=== PATIENT | male | born 1950 | race Caucasian/White ===

== ENCOUNTER 2023-09-03 16:39 | Emergency (ER) | payer MEDICARE, BC, SELFPAY ==
[2023-09-03] VITALS (28 sets, daily range): BP systolic 133–180; BP diastolic 92–154; PULSE 57–90; RESP 20; TEMP 36.1; O2SAT 92–97; BMI 35.0
--- NOTE | 2023-09-03 17:34 | ED_ITS ---
HPI - General Adult General Chief complaint: Weakness Stated complaint: weak Time Seen by Provider: 09/03/23 17:03 History of Present Illness HPI narrative: [facility] did not want to go to [facility] today so brought here. was found unresponsive on bathroom floor , blood sugar was 400's. c/o cp, ems gave 3 sprays of ntg and 324 mg asa. pt says sick x 1 week. poor historian. says he just got off hospice . took a zofran at home. per ems pt shalom nd out of consciousness. pt awake and sitting on edge of bed in triage. was in [place] last week for possibly the same thing 73-year-old man presenting to the emergency department after apparent loss of consciousness and unresponsiveness. I interview him prior to looking for further information. He says he has to stop doing this. He does admit to some nausea as I noticed the emesis bag on him. He says that he has been vomiting but not able to specify further including duration. He says frequently ?I can't remember?. [facility]. Seen recently and assessed with skin cancer he said. I note the bandage on his right neck. He says conspiratorially that he has a nodule in his lung. In the same tone he does admit having a seizure history when I ask specifically. He does not recall the last time he had a seizure but that it has been a long-time. He would really like to get his license back. He notes [facility] live in assisted living where he was found in the bathroom after an on known. I am. He does note that his blood sugars have been rather high lately and he has been urinating a lot and his ?diastolic? blood pressures been rather high while he notes that his ?systolic? has been quite good. Is not complaining of any pain. Does admit to in arrhythmia in the form of atrial fibrillation and and says that he is no longer anticoagulated. He says that somebody took him off of that. History of Coumadin. Sounds like he may have also had personal fears about bleeding risk on NOAC. Says also that he was recently on hospice and just got off of hospice and is looking forward again is mention to getting his life back. Does acknowledge a history of heart failure. And says that he thinks that this might be partly related. He is not more short of breath at this time. No noted fevers. Has been feeling some dizziness or maybe lightheadedness and that his eyes have been intermittently blurry; seems to indicate for some time. Per reading triage notation, apparently had sprays of nitroglycerin given for chest pain as well as aspirin. Reviewing [facility] records for diagnoses and medications Rheumatoid arthritis Dysphagia Hypothyroid Type 2 diabetes Bipolar Depression Anxiety Sleep apnea Hypertension Atherosclerotic heart disease Diastolic heart failure Emphysema COPD GERD Generalized weakness Chronic kidney disease BPH the last he does mention number of occasions Medications include Acetaminophen albuterol nebs and HFA Divalproex sodium Fluticasone Ketoconazole cream and shampoo Lantus Losartan Nitroglycerin Ondansetron Pantoprazole Pepcid Senna Spironolactone Sucralfate Tamsulosin Triple antibiotic ointment to the right neck Related Data Home Medications Medication Instructions Recorded Confirmed albuterol sulfate 2.5 mg/3 mL mg 09/03/23 (0.083 %) solution for nebulization divalproex 125 mg capsule,delayed 250 mg PO BID 09/03/23 09/03/23 release sprinkle fluticasone furoate 100 1 ea inhalation DAILY 09/03/23 09/03/23 mcg-vilanterol 25 mcg/dose inhalation powder (Breo Ellipta) insulin glargine 100 unit/mL (3 unit subcut 09/03/23 mL) subcutaneous pen (Lantus Solostar U-100 Insulin) losartan 25 mg tablet 25 mg PO DAILY 09/03/23 09/03/23 nitroglycerin 0.4 mg sublingual sublingual 09/03/23 tablet ondansetron HCl 4 mg tablet 4 mg PO Q8H PRN 09/03/23 09/03/23 pantoprazole 40 mg tablet,delayed 40 mg PO DAILY 09/03/23 09/03/23 release sennosides 8.6 mg-docusate sodium tab PO 09/03/23 50 mg tablet (Stimulant Laxative Plus) spironolactone 50 mg tablet 50 mg PO DAILY 09/03/23 09/03/23 sucralfate 1 gram tablet 1 g PO QID 09/03/23 09/03/23 tamsulosin 0.4 mg capsule 0.4 mg PO DAILY 09/03/23 09/03/23 Allergies Allergy/AdvReac Type Severity Reaction Status Date / Time gabapentin Allergy Unknown Verified 09/03/23 16:54 Sulfa (Sulfonamide Allergy Unknown Verified 09/03/23 16:54 Antibiotics) Review of Systems Status of ROS: Reports: 6 or more systems reviewed and unremarkable except as noted in History and below Exam Narrative: Exam Narrative: Is pleasant. NAD. This skin is warm and dry. He has some hemosiderin deposition in the lower extremities. There is 1+ vaguely pitting but more just soft lower extremity edema from upper calves distally bilaterally. There is some older scratches at the right outer lower leg that do not appear to be new. Well-perfused in his extremities. Lungs are clear. No indication of trauma over his back. Neck is a little tender which seems to be chronic per his report. Does have midline surgical scar. Head is atraumatic. Cranial nerves 2-12 are intact. Heart is in what appears to be a regular rate and rhythm though with some ectopic beats. No pain to palpation over the chest or clavicles. Oropharynx is without recent injury. Sticky. Abdomen is overweight soft. Is little tender in the epigastrium. He says that when he has pain it is in the ?right upper quadrant?. This small bruise on the right abdomen less than a dime-sized consistent with insulin injection. Right neck with a large Band- Aid in place and an erosion without surrounding inflammatory changes. This is erosion is about a cm half in diameter. Const: Vital Signs, click to edit/add: Vital Signs - 24 hr 09/03/23 16:45 09/03/23 17:12 09/03/23 17:14 Temperature 97 F L Pulse Rate 70 Pulse Rate [Pulse Oximeter] 76 Pulse Rate [orthos tatic lying Left P ulse Oximeter] Pulse Rate [orthos tatic sitting Left Pulse Oximeter] Pulse Rate [orthos tatic standing Lef t Pulse Oximeter] Respiratory Rate 20 Blood Pressure Blood Pressure [Le ft Upper Arm] 147/108 H Blood Pressure [or thostatic lying Le ft Arm] Blood Pressure [or thostatic sitting Left Arm] Blood Pressure [or thostatic standing Left Arm] Pulse Oximetry 97 95 95 Oxygen Delivery Me thod Room Air Room Air 09/03/23 17:15 09/03/23 17:30 09/03/23 17:32 Temperature Pulse Rate 74 72 68 Pulse Rate [Pulse Oximeter] Pulse Rate [orthos tatic lying Left P ulse Oximeter] Pulse Rate [orthos tatic sitting Left Pulse Oximeter] Pulse Rate [orthos tatic standing Lef t Pulse Oximeter] Respiratory Rate Blood Pressure 178/105 H Blood Pressure [Le ft Upper Arm] Blood Pressure [or thostatic lying Le ft Arm] Blood Pressure [or thostatic sitting Left Arm] Blood Pressure [or thostatic standing Left Arm] Pulse Oximetry 97 92 95 Oxygen Delivery Me thod 09/03/23 17:33 09/03/23 17:40 09/03/23 17:45 Temperature Pulse Rate 66 72 Pulse Rate [Pulse Oximeter] Pulse Rate [orthos tatic lying Left P ulse Oximeter] 66 Pulse Rate [orthos tatic sitting Left Pulse Oximeter] 74 Pulse Rate [orthos tatic standing Lef t Pulse Oximeter] 90 Respiratory Rate Blood Pressure Blood Pressure [Le ft Upper Arm] Blood Pressure [or thostatic lying Le ft Arm] 160/95 H Blood Pressure [or thostatic sitting Left Arm] 176/109 H Blood Pressure [or thostatic standing Left Arm] 180/123 H Pulse Oximetry 96 96 Oxygen Delivery Me thod 09/03/23 18:01 09/03/23 18:42 09/03/23 18:43 Temperature Pulse Rate 71 68 66 Pulse Rate [Pulse Oximeter] Pulse Rate [orthos tatic lying Left P ulse Oximeter] Pulse Rate [orthos tatic sitting Left Pulse Oximeter] Pulse Rate [orthos tatic standing Lef t Pulse Oximeter] Respiratory Rate Blood Pressure 150/92 H Blood Pressure [Le ft Upper Arm] Blood Pressure [or thostatic lying Le ft Arm] Blood Pressure [or thostatic sitting Left Arm] Blood Pressure [or thostatic standing Left Arm] Pulse Oximetry 97 97 96 Oxygen Delivery Me thod 09/03/23 18:45 09/03/23 19:00 09/03/23 19:02 Temperature Pulse Rate 67 67 Pulse Rate [Pulse Oximeter] Pulse Rate [orthos tatic lying Left P ulse Oximeter] Pulse Rate [orthos tatic sitting Left Pulse Oximeter] Pulse Rate [orthos tatic standing Lef t Pulse Oximeter] Respiratory Rate Blood Pressure 170/154 H Blood Pressure [Le ft Upper Arm] Blood Pressure [or thostatic lying Le ft Arm] Blood Pressure [or thostatic sitting Left Arm] Blood Pressure [or thostatic standing Left Arm] Pulse Oximetry 95 93 Oxygen Delivery Me thod 09/03/23 19:15 09/03/23 19:30 09/03/23 19:35 Temperature Pulse Rate 57 L 66 60 Pulse Rate [Pulse Oximeter] Pulse Rate [orthos tatic lying Left P ulse Oximeter] Pulse Rate [orthos tatic sitting Left Pulse Oximeter] Pulse Rate [orthos tatic standing Lef t Pulse Oximeter] Respiratory Rate Blood Pressure Blood Pressure [Le ft Upper Arm] Blood Pressure [or thostatic lying Le ft Arm] Blood Pressure [or thostatic sitting Left Arm] Blood Pressure [or thostatic standing Left Arm] Pulse Oximetry 93 95 94 Oxygen Delivery Me thod 09/03/23 19:45 09/03/23 19:58 09/03/23 20:01 Temperature Pulse Rate 65 76 Pulse Rate [Pulse Oximeter] Pulse Rate [orthos tatic lying Left P ulse Oximeter] Pulse Rate [orthos tatic sitting Left Pulse Oximeter] Pulse Rate [orthos tatic standing Lef t Pulse Oximeter] Respiratory Rate Blood Pressure 160/95 H 176/109 H Blood Pressure [Le ft Upper Arm] Blood Pressure [or thostatic lying Le ft Arm] Blood Pressure [or thostatic sitting Left Arm] Blood Pressure [or thostatic standing Left Arm] Pulse Oximetry 96 97 Oxygen Delivery Me thod 09/03/23 20:03 09/03/23 20:04 09/03/23 22:00 Temperature Pulse Rate 88 Pulse Rate [Pulse Oximeter] Pulse Rate [orthos tatic lying Left P ulse Oximeter] Pulse Rate [orthos tatic sitting Left Pulse Oximeter] Pulse Rate [orthos tatic standing Lef t Pulse Oximeter] Respiratory Rate Blood Pressure 180/123 H Blood Pressure [Le ft Upper Arm] Blood Pressure [or thostatic lying Le ft Arm] Blood Pressure [or thostatic sitting Left Arm] Blood Pressure [or thostatic standing Left Arm] Pulse Oximetry 96 97 Oxygen Delivery Me thod 09/03/23 22:15 09/03/23 22:16 09/03/23 22:17 Temperature Pulse Rate 65 69 63 Pulse Rate [Pulse Oximeter] Pulse Rate [orthos tatic lying Left P ulse Oximeter] Pulse Rate [orthos tatic sitting Left Pulse Oximeter] Pulse Rate [orthos tatic standing Lef t Pulse Oximeter] Respiratory Rate Blood Pressure 133/96 H Blood Pressure [Le ft Upper Arm] Blood Pressure [or thostatic lying Le ft Arm] Blood Pressure [or thostatic sitting Left Arm] Blood Pressure [or thostatic standing Left Arm] Pulse Oximetry 97 95 96 Oxygen Delivery Me thod 09/03/23 22:30 Temperature Pulse Rate 62 Pulse Rate [Pulse Oximeter] Pulse Rate [orthos tatic lying Left P ulse Oximeter] Pulse Rate [orthos tatic sitting Left Pulse Oximeter] Pulse Rate [orthos tatic standing Lef t Pulse Oximeter] Respiratory Rate Blood Pressure Blood Pressure [Le ft Upper Arm] Blood Pressure [or thostatic lying Le ft Arm] Blood Pressure [or thostatic sitting Left Arm] Blood Pressure [or thostatic standing Left Arm] Pulse Oximetry 96 Oxygen Delivery Me thod Documenting provider has reviewed patient's vital signs: yes Course Vital Signs Vital signs: Initial Vital Signs Temperature 97 F L 09/03/23 16:45 Temperature Source Temporal Artery Scan 09/03/23 16:45 Pulse Rate 76 09/03/23 16:45 Respiratory Rate 09/03/23 16:45 Blood Pressure 147/108 H 09/03/23 16:45 Blood Pressure Mean 121 H 09/03/23 16:45 Blood Pressure Position Supine 09/03/23 16:45 Pulse Oximetry 97 09/03/23 16:45 Oxygen Delivery Method Room Air 09/03/23 16:45 Vital Signs Temperature 97 F L 09/03/23 16:45 Pulse Rate 76 09/03/23 16:45 Respiratory Rate 09/03/23 16:45 Blood Pressure 147/108 H 09/03/23 16:45 Pulse Oximetry 97 09/03/23 16:45 Oxygen Delivery Method Room Air 09/03/23 16:45 Temperature 97 F L 09/03/23 16:45 Pulse Rate 62 09/03/23 22:30 Respiratory Rate 09/03/23 16:45 Blood Pressure 133/96 H 09/03/23 22:16 Pulse Oximetry 96 09/03/23 22:30 Oxygen Delivery Method Room Air 09/03/23 17:14 Medical Decision Making MDM Narrative Medical decision making narrative: EMS had reported some waxing and waning consciousness. Able to find records from ER visit from 12 14 23. They note a hospitalization in the month prior for chest pain which CT CTA showing absence of coronary artery disease and CT angio for PE which was unremarkable. EKG during the ER visit was not ischemic and troponin was negative. Thought to have noncardiac chest pain. Further the CT coronary angiogram done on June 2023 showed normal epicardial coronary arteries calcium score of 0 and a normal left-sided thoracic aorta It would seem that less risk of ischemic cardiovascular event today. Possibly orthostatic, possibly CVA, possibly seizure. Might have been a cardiac arrhythmia. Does have underlying history of atrial fibrillation does not appear to be in atrial fibrillation here today. Orthostatics while mildly symptomatic were not overtly positive. Chronic changes evident in head CT reviewed by me. Has large ventricles noted in particular. Radiology over-read below INDICATION: Altered mental status. TECHNIQUE: Multiplanar CT examination of the head was performed without the use of intravenous contrast. COMPARISON: CT head 07/03/2019. FINDINGS: No loss of hoang-white differentiation suggestive of recent territorial infarct. No intracranial hemorrhage, abnormal extra-axial fluid collection or midline shift. Stable mildly enlarged ventricular system caliber, with bifrontal diameter measuring 54 mm, previously 56 mm. The enlarged ventricular caliber seems slightly out of proportion to the cerebral sulci near the vertex, though this finding is stable since 2019. Incidentally noted partially empty sella turcica. Moderate generalized parenchymal volume loss. Moderate patchy periventricular hypoattenuation, nonspecific but suggestive of chronic microvascular ischemic changes. The basal cisterns are patent. The visualized paranasal sinuses and mastoid air cells are clear. The visualized orbits and calvarium are unremarkable. The cerebellar tonsils are in normal position. IMPRESSION: 1. Mild ventriculomegaly seems out of proportion to the cerebral sulci near the vertex, will which can be seen in the setting of normal pressure hydrocephalus in the appropriate clinical setting. However, this finding is stable since at least 2019. 2. No intracranial hemorrhage, recent territorial infarct or midline shift. 3. Moderate generalized parenchymal volume loss with chronic microvascular ischemic changes. Mild ventriculomegaly he appears to be to be unchanged though since 2019. I suppose could be contributing to hypertension. Did also decide to proceed with MRI of the brain in case we might be missing some sort of ischemic event that needs further evaluation; there is the possibility that paroxysmal atrial fibrillation is occurring. CLINICAL HISTORY: Repeated loss of consciousness. TECHNIQUE: Multi-sequence, multiplanar MRI examination of the brain was performed. COMPARISON: None available. FINDINGS: There is no restricted diffusion in the brain to indicate the presence of acute ischemia. No intracranial hemorrhage, extra-axial collection, mass effect, or midline shift. Chronic lacunar infarcts in both cerebellar hemispheres. At least moderate dilatation of the supratentorial ventricular system, which appears disproportionate to the degree of [id number] generalized parenchymal volume loss. Minimal patchy and scattered T2/FLAIR hyperintense foci in the white matter of both hemispheres likely reflects sequela of minimal chronic small vessel ischemia. The orbits are unremarkable. The paranasal sinuses are unremarkable. The mastoid air cells are clear. The calvarium is unremarkable. IMPRESSION: 1. No acute intracranial abnormality. 2. At least moderate dilatation of the supratentorial ventricular system which appears disproportionate to the degree of parenchymal volume loss. This is nonspecific but can be seen in the setting of normal pressure hydrocephalus. 3. Chronic lacunar infarcts in both cerebellar hemispheres. 4. Senescent changes including generalized parenchymal volume loss and findings most consistent with sequela of chronic small vessel ischemia. Findings appear to be consistent with CT imaging and no evidence of acute ischemic disease. Was monitored for extensive period of time in the emergency department and managed to sleep. Did remain in normal sinus rhythm during this time. Diastolic blood pressure particular remained elevated. Will need follow-up for this. Might also need a longer period of heart rhythm monitoring. I did discuss admission for further monitoring with Mr. Guaman. His preference is clearly to return home. I did call to daughter looking for more information but was unable to reach. Lab Data Lab results reviewed: Yes I reviewed the patient's lab results Labs: Lab Results 09/03/23 09/03/23 09/03/23 Range/Units 17:06 17:41 18:00 WBC (4.50-11.00) K/uL RBC (4.30-5.90) m/uL Hgb (13.5-17.5) gm/dL Hct (37.0-53.0) % MCV (80-100) fL MCH (26-34) pg MCHC (32-36) gm/dL RDW Coeff of Ella (11.5-15.5) % Plt Count (140-440) K/uL Neut % (Auto) (42.0-72.0) % Lymph % (Auto) (20-44) % [place] % (Auto) (0.0-11.0) % Eos % (Auto) (0.0-7.0) % Baso % (Auto) (0.0-3.0) % Neut # (Auto) (1.7-7.0) K/uL Lymph # (Auto) (0.90-2.90) K/uL [place] # (Auto) (0.00-0.90) K/UL Eos # (Auto) (0.00-0.50) K/uL Baso # (Auto) (0.00-0.30) K/uL Abs Immat Gran (auto) (0.00-0.30) K/uL Imm/Tot Granulo (auto) % D-Dimer Quant (PE/DVT) (0.00-0.50) ug/ml Sodium Potassium Chloride Carbon Dioxide Anion Gap BUN Creatinine Estimated Creat Clear Estimated GFR Glucose Lactate (0.5-1.9) mmol/L Calcium Magnesium (1.5-2.6) mg/dL Total Bilirubin (0.1-1.5) mg/dL Direct Bilirubin (0.0-0.5) mg/dL AST (12-35) U/L ALT (4-50) U/L Alkaline Phosphatase (40-150) U/L Troponin I (0.01-0.04) ng/mL C-Reactive Protein NT-Pro-B Natriuret Pep pg/mL Total Protein (6.0-8.3) g/dL Albumin (3.3-5.0) g/dL Lipase (23-300) U/L TSH (0.270-4.20) uIU/mL Urine Color Yellow (Yellow) Urine Appearance Clear (Clear) Urine pH 7.5 (5.0-8.5) Ur Specific [place] 1.020 (1.000-1.030) Urine Protein Negative (Negative) Urine Glucose (UA) 2+ A (Negative) Urine Ketones Negative (Negative) Urine Blood Trace-intact A (Negative) Urine Nitrite Negative (Negative) Urine Bilirubin Negative (Negative) Urine Urobilinogen 0.2 (0.2-1.0) Ur Leukocyte Esterase Negative (Negative) Urine RBC 0-2 (0-2) Urine WBC 0-2 (0-5) Urine WBC Clumps None (None) Ur Squamous Epith Cells None (None-Few) Amorphous Sediment Few A (None) Urine Bacteria None (None) Urine Opiates Screen Negative (Negative) Ur Oxycodone Screen Negative (Negative) Urine Methadone Screen Negative (Negative) Ur Barbiturates Screen Negative (Negative) U Tricyclic Antidepress Negative (Negative) Ur Phencyclidine Scrn Negative (Negative) Ur Amphetamines Screen Negative (Negative) U Methamphetamines Scrn Negative (Negative) U Benzodiazepines Scrn Negative (Negative) Urine Cocaine Screen Negative (Negative) U Marijuana (THC) Screen POSITIVE A (Negative) Ur Drug Screen Comment See Note Ethyl Alcohol SARS-CoV-2 (PCR) Negative SARS-CoV-2 (Negative) Influenza Type A (PCR) Negative PCR FLU A (Negative) Influenza Type B (PCR) Negative PCR FLU B (Negative) RSV (PCR) Negative PCR RSV (Negative) Lab Acknowledgement POC Troponin I 0.01 (0.01-0.04) ng/ml 09/03/23 09/03/23 09/03/23 Range/Units 18:40 18:40 18:40 WBC 7.55 (4.50-11.00) K/uL RBC 4.73 (4.30-5.90) m/uL Hgb 13.9 (13.5-17.5) gm/dL Hct 39.8 (37.0-53.0) % MCV 84 (80-100) fL MCH 29 (26-34) pg MCHC 35 (32-36) gm/dL RDW Coeff of Ella 12.3 (11.5-15.5) % Plt Count 63 L (140-440) K/uL Neut % (Auto) 48.1 (42.0-72.0) % Lymph % (Auto) 36.6 (20-44) % [place] % (Auto) 9.9 (0.0-11.0) % Eos % (Auto) 4.8 (0.0-7.0) % Baso % (Auto) 0.3 (0.0-3.0) % Neut # (Auto) 3.64 (1.7-7.0) K/uL Lymph # (Auto) 2.76 (0.90-2.90) K/uL [place] # (Auto) 0.70 (0.00-0.90) K/UL Eos # (Auto) 0.36 (0.00-0.50) K/uL Baso # (Auto) 0.02 (0.00-0.30) K/uL Abs Immat Gran (auto) 0.02 (0.00-0.30) K/uL Imm/Tot Granulo (auto) 0.3 % D-Dimer Quant (PE/DVT) 0.35 (0.00-0.50) ug/ml Sodium Cancelled 135 Potassium Cancelled 4.0 Chloride Cancelled Carbon Dioxide Anion Gap BUN Creatinine Estimated Creat Clear Estimated GFR Glucose Lactate (0.5-1.9) mmol/L Calcium Magnesium (1.5-2.6) mg/dL Total Bilirubin (0.1-1.5) mg/dL Direct Bilirubin (0.0-0.5) mg/dL AST (12-35) U/L ALT (4-50) U/L Alkaline Phosphatase (40-150) U/L Troponin I (0.01-0.04) ng/mL C-Reactive Protein NT-Pro-B Natriuret Pep pg/mL Total Protein (6.0-8.3) g/dL Albumin (3.3-5.0) g/dL Lipase (23-300) U/L TSH (0.270-4.20) uIU/mL Urine Color (Yellow) Urine Appearance (Clear) Urine pH (5.0-8.5) Ur Specific [place] (1.000-1.030) Urine Protein (Negative) Urine Glucose (UA) (Negative) Urine Ketones (Negative) Urine Blood (Negative) Urine Nitrite (Negative) Urine Bilirubin (Negative) Urine Urobilinogen (0.2-1.0) Ur Leukocyte Esterase (Negative) Urine RBC (0-2) Urine WBC (0-5) Urine WBC Clumps (None) Ur Squamous Epith Cells (None-Few) Amorphous Sediment (None) Urine Bacteria (None) Urine Opiates Screen (Negative) Ur Oxycodone Screen (Negative) Urine Methadone Screen (Negative) Ur Barbiturates Screen (Negative) U Tricyclic Antidepress (Negative) Ur Phencyclidine Scrn (Negative) Ur Amphetamines Screen (Negative) U Methamphetamines Scrn (Negative) U Benzodiazepines Scrn (Negative) Urine Cocaine Screen (Negative) U Marijuana (THC) Screen (Negative) Ur Drug Screen Comment Ethyl Alcohol SARS-CoV-2 (PCR) (Negative) Influenza Type A (PCR) (Negative) Influenza Type B (PCR) (Negative) RSV (PCR) (Negative) Lab Acknowledgement POC Troponin I (0.01-0.04) ng/ml 09/03/23 09/03/23 09/03/23 Range/Units 18:40 18:40 18:40 WBC (4.50-11.00) K/uL RBC (4.30-5.90) m/uL Hgb (13.5-17.5) gm/dL Hct (37.0-53.0) % MCV (80-100) fL MCH (26-34) pg MCHC (32-36) gm/dL RDW Coeff of Ella (11.5-15.5) % Plt Count (140-440) K/uL Neut % (Auto) (42.0-72.0) % Lymph % (Auto) (20-44) % [place] % (Auto) (0.0-11.0) % Eos % (Auto) (0.0-7.0) % Baso % (Auto) (0.0-3.0) % Neut # (Auto) (1.7-7.0) K/uL Lymph # (Auto) (0.90-2.90) K/uL [place] # (Auto) (0.00-0.90) K/UL Eos # (Auto) (0.00-0.50) K/uL Baso # (Auto) (0.00-0.30) K/uL Abs Immat Gran (auto) (0.00-0.30) K/uL Imm/Tot Granulo (auto) % D-Dimer Quant (PE/DVT) (0.00-0.50) ug/ml Sodium Potassium Chloride 101 Carbon Dioxide Cancelled 26 Anion Gap Cancelled 8 BUN Cancelled Creatinine Estimated Creat Clear Estimated GFR Glucose Lactate (0.5-1.9) mmol/L Calcium Magnesium (1.5-2.6) mg/dL Total Bilirubin (0.1-1.5) mg/dL Direct Bilirubin (0.0-0.5) mg/dL AST (12-35) U/L ALT (4-50) U/L Alkaline Phosphatase (40-150) U/L Troponin I (0.01-0.04) ng/mL C-Reactive Protein NT-Pro-B Natriuret Pep pg/mL Total Protein (6.0-8.3) g/dL Albumin (3.3-5.0) g/dL Lipase (23-300) U/L TSH (0.270-4.20) uIU/mL Urine Color (Yellow) Urine Appearance (Clear) Urine pH (5.0-8.5) Ur Specific [place] (1.000-1.030) Urine Protein (Negative) Urine Glucose (UA) (Negative) Urine Ketones (Negative) Urine Blood (Negative) Urine Nitrite (Negative) Urine Bilirubin (Negative) Urine Urobilinogen (0.2-1.0) Ur Leukocyte Esterase (Negative) Urine RBC (0-2) Urine WBC (0-5) Urine WBC Clumps (None) Ur Squamous Epith Cells (None-Few) Amorphous Sediment (None) Urine Bacteria (None) Urine Opiates Screen (Negative) Ur Oxycodone Screen (Negative) Urine Methadone Screen (Negative) Ur Barbiturates Screen (Negative) U Tricyclic Antidepress (Negative) Ur Phencyclidine Scrn (Negative) Ur Amphetamines Screen (Negative) U Methamphetamines Scrn (Negative) U Benzodiazepines Scrn (Negative) Urine Cocaine Screen (Negative) U Marijuana (THC) Screen (Negative) Ur Drug Screen Comment Ethyl Alcohol SARS-CoV-2 (PCR) (Negative) Influenza Type A (PCR) (Negative) Influenza Type B (PCR) (Negative) RSV (PCR) (Negative) Lab Acknowledgement POC Troponin I (0.01-0.04) ng/ml 09/03/23 09/03/23 09/03/23 Range/Units 18:40 18:40 18:40 WBC (4.50-11.00) K/uL RBC (4.30-5.90) m/uL Hgb (13.5-17.5) gm/dL Hct (37.0-53.0) % MCV (80-100) fL MCH (26-34) pg MCHC (32-36) gm/dL RDW Coeff of Ella (11.5-15.5) % Plt Count (140-440) K/uL Neut % (Auto) (42.0-72.0) % Lymph % (Auto) (20-44) % [place] % (Auto) (0.0-11.0) % Eos % (Auto) (0.0-7.0) % Baso % (Auto) (0.0-3.0) % Neut # (Auto) (1.7-7.0) K/uL Lymph # (Auto) (0.90-2.90) K/uL [place] # (Auto) (0.00-0.90) K/UL Eos # (Auto) (0.00-0.50) K/uL Baso # (Auto) (0.00-0.30) K/uL Abs Immat Gran (auto) (0.00-0.30) K/uL Imm/Tot Granulo (auto) % D-Dimer Quant (PE/DVT) (0.00-0.50) ug/ml Sodium Potassium Chloride Carbon Dioxide Anion Gap BUN 21 Creatinine Cancelled 0.7 Estimated Creat Clear Cancelled 76.57 Estimated GFR Cancelled Glucose Lactate (0.5-1.9) mmol/L Calcium Magnesium (1.5-2.6) mg/dL Total Bilirubin (0.1-1.5) mg/dL Direct Bilirubin (0.0-0.5) mg/dL AST (12-35) U/L ALT (4-50) U/L Alkaline Phosphatase (40-150) U/L Troponin I (0.01-0.04) ng/mL C-Reactive Protein NT-Pro-B Natriuret Pep pg/mL Total Protein (6.0-8.3) g/dL Albumin (3.3-5.0) g/dL Lipase (23-300) U/L TSH (0.270-4.20) uIU/mL Urine Color (Yellow) Urine Appearance (Clear) Urine pH (5.0-8.5) Ur Specific [place] (1.000-1.030) Urine Protein (Negative) Urine Glucose (UA) (Negative) Urine Ketones (Negative) Urine Blood (Negative) Urine Nitrite (Negative) Urine Bilirubin (Negative) Urine Urobilinogen (0.2-1.0) Ur Leukocyte Esterase (Negative) Urine RBC (0-2) Urine WBC (0-5) Urine WBC Clumps (None) Ur Squamous Epith Cells (None-Few) Amorphous Sediment (None) Urine Bacteria (None) Urine Opiates Screen (Negative) Ur Oxycodone Screen (Negative) Urine Methadone Screen (Negative) Ur Barbiturates Screen (Negative) U Tricyclic Antidepress (Negative) Ur Phencyclidine Scrn (Negative) Ur Amphetamines Screen (Negative) U Methamphetamines Scrn (Negative) U Benzodiazepines Scrn (Negative) Urine Cocaine Screen (Negative) U Marijuana (THC) Screen (Negative) Ur Drug Screen Comment Ethyl Alcohol SARS-CoV-2 (PCR) (Negative) Influenza Type A (PCR) (Negative) Influenza Type B (PCR) (Negative) RSV (PCR) (Negative) Lab Acknowledgement POC Troponin I (0.01-0.04) ng/ml 09/03/23 09/03/23 09/03/23 Range/Units 18:40 18:40 18:40 WBC (4.50-11.00) K/uL RBC (4.30-5.90) m/uL Hgb (13.5-17.5) gm/dL Hct (37.0-53.0) % MCV (80-100) fL MCH (26-34) pg MCHC (32-36) gm/dL RDW Coeff of Ella (11.5-15.5) % Plt Count (140-440) K/uL Neut % (Auto) (42.0-72.0) % Lymph % (Auto) (20-44) % [place] % (Auto) (0.0-11.0) % Eos % (Auto) (0.0-7.0) % Baso % (Auto) (0.0-3.0) % Neut # (Auto) (1.7-7.0) K/uL Lymph # (Auto) (0.90-2.90) K/uL [place] # (Auto) (0.00-0.90) K/UL Eos # (Auto) (0.00-0.50) K/uL Baso # (Auto) (0.00-0.30) K/uL Abs Immat Gran (auto) (0.00-0.30) K/uL Imm/Tot Granulo (auto) % D-Dimer Quant (PE/DVT) (0.00-0.50) ug/ml Sodium Potassium Chloride Carbon Dioxide Anion Gap BUN Creatinine Estimated Creat Clear Estimated GFR 99 Glucose Cancelled 350 H Lactate 1.6 (0.5-1.9) mmol/L Calcium Cancelled 8.6 Magnesium 1.8 (1.5-2.6) mg/dL Total Bilirubin 0.3 (0.1-1.5) mg/dL Direct Bilirubin 0.0 (0.0-0.5) mg/dL AST 16 (12-35) U/L ALT 14 (4-50) U/L Alkaline Phosphatase 98 (40-150) U/L Troponin I < 0.01 L (0.01-0.04) ng/mL C-Reactive Protein Cancelled NT-Pro-B Natriuret Pep pg/mL Total Protein (6.0-8.3) g/dL Albumin (3.3-5.0) g/dL Lipase (23-300) U/L TSH (0.270-4.20) uIU/mL Urine Color (Yellow) Urine Appearance (Clear) Urine pH (5.0-8.5) Ur Specific [place] (1.000-1.030) Urine Protein (Negative) Urine Glucose (UA) (Negative) Urine Ketones (Negative) Urine Blood (Negative) Urine Nitrite (Negative) Urine Bilirubin (Negative) Urine Urobilinogen (0.2-1.0) Ur Leukocyte Esterase (Negative) Urine RBC (0-2) Urine WBC (0-5) Urine WBC Clumps (None) Ur Squamous Epith Cells (None-Few) Amorphous Sediment (None) Urine Bacteria (None) Urine Opiates Screen (Negative) Ur Oxycodone Screen (Negative) Urine Methadone Screen (Negative) Ur Barbiturates Screen (Negative) U Tricyclic Antidepress (Negative) Ur Phencyclidine Scrn (Negative) Ur Amphetamines Screen (Negative) U Methamphetamines Scrn (Negative) U Benzodiazepines Scrn (Negative) Urine Cocaine Screen (Negative) U Marijuana (THC) Screen (Negative) Ur Drug Screen Comment Ethyl Alcohol SARS-CoV-2 (PCR) (Negative) Influenza Type A (PCR) (Negative) Influenza Type B (PCR) (Negative) RSV (PCR) (Negative) Lab Acknowledgement POC Troponin I (0.01-0.04) ng/ml 09/03/23 09/03/23 09/03/23 Range/Units 18:40 18:40 18:48 WBC (4.50-11.00) K/uL RBC (4.30-5.90) m/uL Hgb (13.5-17.5) gm/dL Hct (37.0-53.0) % MCV (80-100) fL MCH (26-34) pg MCHC (32-36) gm/dL RDW Coeff of Ella (11.5-15.5) % Plt Count (140-440) K/uL Neut % (Auto) (42.0-72.0) % Lymph % (Auto) (20-44) % [place] % (Auto) (0.0-11.0) % Eos % (Auto) (0.0-7.0) % Baso % (Auto) (0.0-3.0) % Neut # (Auto) (1.7-7.0) K/uL Lymph # (Auto) (0.90-2.90) K/uL [place] # (Auto) (0.00-0.90) K/UL Eos # (Auto) (0.00-0.50) K/uL Baso # (Auto) (0.00-0.30) K/uL Abs Immat Gran (auto) (0.00-0.30) K/uL Imm/Tot Granulo (auto) % D-Dimer Quant (PE/DVT) (0.00-0.50) ug/ml Sodium Potassium Chloride Carbon Dioxide Anion Gap BUN Creatinine Estimated Creat Clear Estimated GFR Glucose Lactate (0.5-1.9) mmol/L Calcium Magnesium (1.5-2.6) mg/dL Total Bilirubin (0.1-1.5) mg/dL Direct Bilirubin (0.0-0.5) mg/dL AST (12-35) U/L ALT (4-50) U/L Alkaline Phosphatase (40-150) U/L Troponin I (0.01-0.04) ng/mL C-Reactive Protein 0.9 NT-Pro-B Natriuret Pep 315 pg/mL Total Protein 6.7 (6.0-8.3) g/dL Albumin 4.0 (3.3-5.0) g/dL Lipase 73 (23-300) U/L TSH 2.220 (0.270-4.20) uIU/mL Urine Color (Yellow) Urine Appearance (Clear) Urine pH (5.0-8.5) Ur Specific [place] (1.000-1.030) Urine Protein (Negative) Urine Glucose (UA) (Negative) Urine Ketones (Negative) Urine Blood (Negative) Urine Nitrite (Negative) Urine Bilirubin (Negative) Urine Urobilinogen (0.2-1.0) Ur Leukocyte Esterase (Negative) Urine RBC (0-2) Urine WBC (0-5) Urine WBC Clumps (None) Ur Squamous Epith Cells (None-Few) Amorphous Sediment (None) Urine Bacteria (None) Urine Opiates Screen (Negative) Ur Oxycodone Screen (Negative) Urine Methadone Screen (Negative) Ur Barbiturates Screen (Negative) U Tricyclic Antidepress (Negative) Ur Phencyclidine Scrn (Negative) Ur Amphetamines Screen (Negative) U Methamphetamines Scrn (Negative) U Benzodiazepines Scrn (Negative) Urine Cocaine Screen (Negative) U Marijuana (THC) Screen (Negative) Ur Drug Screen Comment Ethyl Alcohol Cancelled < 0.01 L SARS-CoV-2 (PCR) (Negative) Influenza Type A (PCR) (Negative) Influenza Type B (PCR) (Negative) RSV (PCR) (Negative) Lab Acknowledgement Test Added POC Troponin I (0.01-0.04) ng/ml ECG Data Attestation: I personally reviewed and interpreted this ECG as follows: (Sinus rhythm. PACs are noted. Rate of 76. No acute ischemic changes appreciated. ) Discharge Plan Discharge Clinical Impression: Orthostatic lightheadedness, Hyperglycemia, Syncope, Hypertension Patient Disposition: Home w/ Parent or Adult Condition: Improved Additional Instructions: Stay well-hydrated. Take care in transitions. Your last blood pressure to this point was 133/96. Pulse was 69. There were number of measurements though where your diastolic was over 100 and your systolic was around 170. I would like you to follow-up with results of your head imaging here today and for your blood pressures and blood sugars soon as possible at [facility] as you mentioned or with other primary care provider. We are also sending you with a copy of your recent ER visit to [facility]. There is important information in there as well. Activity Level: No Restrictions Discharge Diet: Regular Prescriptions: No Action albuterol sulfate 2.5 mg /3 mL (0.083 %) solution for nebulization Patient Comments: [NO ORIGINAL SIG] sucralfate 1 gram tablet 1 g PO QID ondansetron HCl 4 mg tablet 4 mg PO Q8H PRN sennosides-docusate sodium [Stimulant Laxative Plus] 8.6-50 mg tablet PO tamsulosin 0.4 mg capsule 0.4 mg PO DAILY pantoprazole 40 mg tablet,delayed release (DR/EC) 40 mg PO DAILY losartan 25 mg tablet 25 mg PO DAILY nitroglycerin 0.4 mg tablet, sublingual sublingual divalproex 125 mg capsule, delayed rel sprinkle 250 mg PO BID spironolactone 50 mg tablet 50 mg PO DAILY insulin glargine [Lantus Solostar U-100 Insulin] 100 unit/mL (3 mL) insulin pen subcut fluticasone furoate-vilanterol [Breo Ellipta] 100-25 mcg/dose blister with device 1 ea INHALATION DAILY Follow Up/Referrals: Romaine Patten MD [Primary Care Provider] - Stand Alone Forms: [facility] Info Instructions
--- NOTE | 2023-09-03 17:40 | CRLHL7_ITS ---
For Patients: As a result of the Century Cures Act, medical imaging exams and procedure reports are released immediately into your electronic medical record. You may view this report before your referring provider. If you have questions, please contact your health care provider. INDICATION: Altered mental status. TECHNIQUE: Multiplanar CT examination of the head was performed without the use of intravenous contrast. COMPARISON: CT head 07/03/2019. FINDINGS: No loss of hoang-white differentiation suggestive of recent territorial infarct. No intracranial hemorrhage, abnormal extra-axial fluid collection or midline shift. Stable mildly enlarged ventricular system caliber, with bifrontal diameter measuring 54 mm, previously 56 mm. The enlarged ventricular caliber seems slightly out of proportion to the cerebral sulci near the vertex, though this finding is stable since 2019. Incidentally noted partially empty sella turcica. Moderate generalized parenchymal volume loss. Moderate patchy periventricular hypoattenuation, nonspecific but suggestive of chronic microvascular ischemic changes. The basal cisterns are patent. The visualized paranasal sinuses and mastoid air cells are clear. The visualized orbits and calvarium are unremarkable. The cerebellar tonsils are in normal position. IMPRESSION: 1. Mild ventriculomegaly seems out of proportion to the cerebral sulci near the vertex, will which can be seen in the setting of normal pressure hydrocephalus in the appropriate clinical setting. However, this finding is stable since at least 2019. 2. No intracranial hemorrhage, recent territorial infarct or midline shift. 3. Moderate generalized parenchymal volume loss with chronic microvascular ischemic changes. Please note that all CT scans at this facility use dose modulation, iterative reconstruction, and/or weight-based dosing when appropriate to reduce radiation dose to as low as reasonably achievable. Dictated by Ramón Stephens MD @ 09/03/2023 7:24:27 PM (Electronically Signed)
[2023-09-03 18:11] LABS: Appearance Urine Clear (Clear); Bilirubin Urine Negative (Negative); Blood Urine Trace-intact (Negative); Color Urine Yellow (Yellow); Glucose Urine 2+ (Negative); Ketones Urine Negative (Negative); Leukocyte Esterase Urine Negative (Negative); Nitrite Urine Negative (Negative); Protein Urine Negative (Negative); Urobilinogen Urine 0.2 (0.2-1.0); pH Urine 7.5 (5.0-8.5)
[2023-09-03 18:13] LABS: Amphetamine Screen Urine Negative (Negative); Barbiturate Screen Urine Negative (Negative); Benzodiazepines Screen Urine Negative (Negative); Cannabinoid Screen Urine POSITIVE (Negative); Cocaine Screen Urine Negative (Negative); Methadone Screen Urine Negative (Negative); Methamphetamines Screen Urine Negative (Negative); Opiate Screen Urine Negative (Negative); Oxycodone Screen Urine Negative (Negative); Phencyclidine Screen Urine Negative (Negative); Tricyclic Antidepressant Urine Negative (Negative)
[2023-09-03 18:57] LABS: SARS PCR* Negative SARS-CoV-2 (Negative)
[2023-09-03 19:03] LABS: Lactate* 1.6 mmol/L (0.5-1.9)
[2023-09-03 19:03] LABS: Troponin, Point-of-Care* 0.01 ng/ml (0.01-0.04)
[2023-09-03 19:10] LABS: Basophils Percent Auto 0.3 % (0.0-3.0); Eosinophils Percent Auto 4.8 % (0.0-7.0); Hematocrit 39.8 % (37.0-53.0); Hemoglobin* 13.9 gm/dL (13.5-17.5); Lymphocytes Percent Auto 36.6 % (20-44); Mean Corpuscular HGB Conc 35 gm/dL (32-36); Mean Corpuscular Hemoglobin 29 pg (26-34); Mean Corpuscular Volume 84 fL (80-100); Monocytes Percent Auto 9.9 % (0.0-11.0); Neutrophils Percent Auto 48.1 % (42.0-72.0); Platelet Count* 63 K/uL (140-440); RDW Coefficient of Variation % 12.3 % (11.5-15.5); Red Blood Count 4.73 m/uL (4.30-5.90); White Blood Count* 7.55 K/uL (4.50-11.00)
[2023-09-03 19:11] LABS: Basophils Absolute Auto 0.02 K/uL (0.00-0.30); Eosinophils Absolute Auto 0.36 K/uL (0.00-0.50); Immature Granulocytes Abs Auto 0.02 K/uL (0.00-0.30); Immature Granulocytes Pct Auto 0.3 %; Lymphocytes Absolute Auto 2.76 K/uL (0.90-2.90); Neutrophils Absolute Auto 3.64 K/uL (1.7-7.0)
[2023-09-03 19:13] LABS: Slide Review Reflex No
[2023-09-03 19:15] LABS: Amorphous Sediment Urine Few; RBC Urine 0-2 (0-2); WBC Urine 0-2 (0-5)
--- NOTE | 2023-09-03 19:23 | CRLHL7_ITS ---
For Patients: As a result of the Century Cures Act, medical imaging exams and procedure reports are released immediately into your electronic medical record. You may view this report before your referring provider. If you have questions, please contact your health care provider. CLINICAL HISTORY: Repeated loss of consciousness. TECHNIQUE: Multi-sequence, multiplanar MRI examination of the brain was performed. COMPARISON: None available. FINDINGS: There is no restricted diffusion in the brain to indicate the presence of acute ischemia. No intracranial hemorrhage, extra-axial collection, mass effect, or midline shift. Chronic lacunar infarcts in both cerebellar hemispheres. At least moderate dilatation of the supratentorial ventricular system, which appears disproportionate to the degree of [id number] generalized parenchymal volume loss. Minimal patchy and scattered T2/FLAIR hyperintense foci in the white matter of both hemispheres likely reflects sequela of minimal chronic small vessel ischemia. The orbits are unremarkable. The paranasal sinuses are unremarkable. The mastoid air cells are clear. The calvarium is unremarkable. IMPRESSION: 1. No acute intracranial abnormality. 2. At least moderate dilatation of the supratentorial ventricular system which appears disproportionate to the degree of parenchymal volume loss. This is nonspecific but can be seen in the setting of normal pressure hydrocephalus. 3. Chronic lacunar infarcts in both cerebellar hemispheres. 4. Senescent changes including generalized parenchymal volume loss and findings most consistent with sequela of chronic small vessel ischemia. Dictated by Tc Hermosillo MD @ 09/03/2023 9:29:23 PM (Electronically Signed)
[2023-09-03 19:27] LABS: Chloride* 101 mmol/L (96-114); Sodium* 135 mmol/L (135-149)
[2023-09-03 19:30] LABS: Anion Gap 8 mEq/L (7-15); Aspartate Amino Transferase* 16 U/L (12-35); Bilirubin Total* 0.3 mg/dL (0.1-1.5); Carbon Dioxide* 26 mmol/L (20-32); Creatinine* 0.7 mg/dL (0.5-1.5); Est. Creatinine Clearance* 76.57; Estimated Glomerular Filt Rate 99 ml/min; Total Protein* 6.7 g/dL (6.0-8.3)
[2023-09-03 19:31] LABS: Alanine Aminotransferase* 14 U/L (4-50); Alkaline Phosphatase* 98 U/L (40-150); Blood Urea Nitrogen* 21 mg/dL (7-30); Calcium* 8.6 mg/dL (8.4-10.6); Glucose* 350 mg/dL (60-115); Lipase* 73 U/L (23-300); Magnesium* 1.8 mg/dL (1.5-2.6)
[2023-09-03 19:32] LABS: D Dimer Quantitative* 0.35 ug/ml (0.00-0.50)
[2023-09-03 19:34] LABS: C Reactive Protein* 0.9 mg/dL (0.5-1.0)
[2023-09-03 19:35] LABS: Ethanol* < 0.01 % (0.01-0.03)
[2023-09-03 19:44] LABS: NT Pro B Type NatriureticPept* 315 pg/mL; Troponin I* < 0.01 ng/mL (0.01-0.04)
[2023-09-03 20:04] LABS: PCR FLU A Negative PCR FLU A (Negative); PCR FLU B Negative PCR FLU B (Negative); PCR RSV Negative PCR RSV (Negative)
--- NOTE | 2023-09-03 23:06 | ED.NURSE ---
Attempted to call pt's daughter she did not answer phone and this nurse was unable to leave a message with updates per her earlier request.
--- NOTE | 2023-09-04 00:36 | ED.NURSE ---
phone call to terry at [facility] to update pt returning via [facility].
--- NOTE | 2023-09-04 01:05 | ED.GENADULT ---
HPI - General Adult General Chief complaint: Weakness Stated complaint: weak Time Seen by Provider: 09/03/23 17:03 Related Data Home Medications Medication Instructions Recorded Confirmed albuterol sulfate 2.5 mg/3 mL mg 09/03/23 (0.083 %) solution for nebulization divalproex 125 mg capsule,delayed 250 mg PO BID 09/03/23 09/03/23 release sprinkle fluticasone furoate 100 1 ea inhalation DAILY 09/03/23 09/03/23 mcg-vilanterol 25 mcg/dose inhalation powder (Breo Ellipta) insulin glargine 100 unit/mL (3 unit subcut 09/03/23 mL) subcutaneous pen (Lantus Solostar U-100 Insulin) losartan 25 mg tablet 25 mg PO DAILY 09/03/23 09/03/23 nitroglycerin 0.4 mg sublingual sublingual 09/03/23 tablet ondansetron HCl 4 mg tablet 4 mg PO Q8H PRN 09/03/23 09/03/23 pantoprazole 40 mg tablet,delayed 40 mg PO DAILY 09/03/23 09/03/23 release sennosides 8.6 mg-docusate sodium tab PO 09/03/23 50 mg tablet (Stimulant Laxative Plus) spironolactone 50 mg tablet 50 mg PO DAILY 09/03/23 09/03/23 sucralfate 1 gram tablet 1 g PO QID 09/03/23 09/03/23 tamsulosin 0.4 mg capsule 0.4 mg PO DAILY 09/03/23 09/03/23 Allergies Allergy/AdvReac Type Severity Reaction Status Date / Time gabapentin Allergy Unknown Verified 09/03/23 16:54 Sulfa (Sulfonamide Allergy Unknown Verified 09/03/23 16:54 Antibiotics) Exam Const: Vital Signs, click to edit/add: Vital Signs - 24 hr 09/03/23 16:45 09/03/23 17:12 09/03/23 17:14 Temperature 97 F L Pulse Rate 70 Pulse Rate [Pulse Oximeter] 76 Pulse Rate [orthos tatic lying Left P ulse Oximeter] Pulse Rate [orthos tatic sitting Left Pulse Oximeter] Pulse Rate [orthos tatic standing Lef t Pulse Oximeter] Respiratory Rate 20 Blood Pressure Blood Pressure [Le ft Upper Arm] 147/108 H Blood Pressure [or thostatic lying Le ft Arm] Blood Pressure [or thostatic sitting Left Arm] Blood Pressure [or thostatic standing Left Arm] Pulse Oximetry 97 95 95 Oxygen Delivery Me thod Room Air Room Air 09/03/23 17:15 09/03/23 17:30 09/03/23 17:32 Temperature Pulse Rate 74 72 68 Pulse Rate [Pulse Oximeter] Pulse Rate [orthos tatic lying Left P ulse Oximeter] Pulse Rate [orthos tatic sitting Left Pulse Oximeter] Pulse Rate [orthos tatic standing Lef t Pulse Oximeter] Respiratory Rate Blood Pressure 178/105 H Blood Pressure [Le ft Upper Arm] Blood Pressure [or thostatic lying Le ft Arm] Blood Pressure [or thostatic sitting Left Arm] Blood Pressure [or thostatic standing Left Arm] Pulse Oximetry 97 92 95 Oxygen Delivery Me thod 09/03/23 17:33 09/03/23 17:40 09/03/23 17:45 Temperature Pulse Rate 66 72 Pulse Rate [Pulse Oximeter] Pulse Rate [orthos tatic lying Left P ulse Oximeter] 66 Pulse Rate [orthos tatic sitting Left Pulse Oximeter] 74 Pulse Rate [orthos tatic standing Lef t Pulse Oximeter] 90 Respiratory Rate Blood Pressure Blood Pressure [Le ft Upper Arm] Blood Pressure [or thostatic lying Le ft Arm] 160/95 H Blood Pressure [or thostatic sitting Left Arm] 176/109 H Blood Pressure [or thostatic standing Left Arm] 180/123 H Pulse Oximetry 96 96 Oxygen Delivery Me thod 09/03/23 18:01 09/03/23 18:42 09/03/23 18:43 Temperature Pulse Rate 71 68 66 Pulse Rate [Pulse Oximeter] Pulse Rate [orthos tatic lying Left P ulse Oximeter] Pulse Rate [orthos tatic sitting Left Pulse Oximeter] Pulse Rate [orthos tatic standing Lef t Pulse Oximeter] Respiratory Rate Blood Pressure 150/92 H Blood Pressure [Le ft Upper Arm] Blood Pressure [or thostatic lying Le ft Arm] Blood Pressure [or thostatic sitting Left Arm] Blood Pressure [or thostatic standing Left Arm] Pulse Oximetry 97 97 96 Oxygen Delivery Me thod 09/03/23 18:45 09/03/23 19:00 09/03/23 19:02 Temperature Pulse Rate 67 67 Pulse Rate [Pulse Oximeter] Pulse Rate [orthos tatic lying Left P ulse Oximeter] Pulse Rate [orthos tatic sitting Left Pulse Oximeter] Pulse Rate [orthos tatic standing Lef t Pulse Oximeter] Respiratory Rate Blood Pressure 170/154 H Blood Pressure [Le ft Upper Arm] Blood Pressure [or thostatic lying Le ft Arm] Blood Pressure [or thostatic sitting Left Arm] Blood Pressure [or thostatic standing Left Arm] Pulse Oximetry 95 93 Oxygen Delivery Me thod 09/03/23 19:15 09/03/23 19:30 09/03/23 19:35 Temperature Pulse Rate 57 L 66 60 Pulse Rate [Pulse Oximeter] Pulse Rate [orthos tatic lying Left P ulse Oximeter] Pulse Rate [orthos tatic sitting Left Pulse Oximeter] Pulse Rate [orthos tatic standing Lef t Pulse Oximeter] Respiratory Rate Blood Pressure Blood Pressure [Le ft Upper Arm] Blood Pressure [or thostatic lying Le ft Arm] Blood Pressure [or thostatic sitting Left Arm] Blood Pressure [or thostatic standing Left Arm] Pulse Oximetry 93 95 94 Oxygen Delivery Me thod 09/03/23 19:45 09/03/23 19:58 09/03/23 20:01 Temperature Pulse Rate 65 76 Pulse Rate [Pulse Oximeter] Pulse Rate [orthos tatic lying Left P ulse Oximeter] Pulse Rate [orthos tatic sitting Left Pulse Oximeter] Pulse Rate [orthos tatic standing Lef t Pulse Oximeter] Respiratory Rate Blood Pressure 160/95 H 176/109 H Blood Pressure [Le ft Upper Arm] Blood Pressure [or thostatic lying Le ft Arm] Blood Pressure [or thostatic sitting Left Arm] Blood Pressure [or thostatic standing Left Arm] Pulse Oximetry 96 97 Oxygen Delivery Me thod 09/03/23 20:03 09/03/23 20:04 09/03/23 22:00 Temperature Pulse Rate 88 Pulse Rate [Pulse Oximeter] Pulse Rate [orthos tatic lying Left P ulse Oximeter] Pulse Rate [orthos tatic sitting Left Pulse Oximeter] Pulse Rate [orthos tatic standing Lef t Pulse Oximeter] Respiratory Rate Blood Pressure 180/123 H Blood Pressure [Le ft Upper Arm] Blood Pressure [or thostatic lying Le ft Arm] Blood Pressure [or thostatic sitting Left Arm] Blood Pressure [or thostatic standing Left Arm] Pulse Oximetry 96 97 Oxygen Delivery Me thod 09/03/23 22:15 09/03/23 22:16 09/03/23 22:17 Temperature Pulse Rate 65 69 63 Pulse Rate [Pulse Oximeter] Pulse Rate [orthos tatic lying Left P ulse Oximeter] Pulse Rate [orthos tatic sitting Left Pulse Oximeter] Pulse Rate [orthos tatic standing Lef t Pulse Oximeter] Respiratory Rate Blood Pressure 133/96 H Blood Pressure [Le ft Upper Arm] Blood Pressure [or thostatic lying Le ft Arm] Blood Pressure [or thostatic sitting Left Arm] Blood Pressure [or thostatic standing Left Arm] Pulse Oximetry 97 95 96 Oxygen Delivery Me thod 09/03/23 22:30 Temperature Pulse Rate 62 Pulse Rate [Pulse Oximeter] Pulse Rate [orthos tatic lying Left P ulse Oximeter] Pulse Rate [orthos tatic sitting Left Pulse Oximeter] Pulse Rate [orthos tatic standing Lef t Pulse Oximeter] Respiratory Rate Blood Pressure Blood Pressure [Le ft Upper Arm] Blood Pressure [or thostatic lying Le ft Arm] Blood Pressure [or thostatic sitting Left Arm] Blood Pressure [or thostatic standing Left Arm] Pulse Oximetry 96 Oxygen Delivery Me thod Course Vital Signs Vital signs: Initial Vital Signs Temperature 97 F L 09/03/23 16:45 Temperature Source Temporal Artery Scan 09/03/23 16:45 Pulse Rate 76 09/03/23 16:45 Respiratory Rate 09/03/23 16:45 Blood Pressure 147/108 H 09/03/23 16:45 Blood Pressure Mean 121 H 09/03/23 16:45 Blood Pressure Position Supine 09/03/23 16:45 Pulse Oximetry 97 09/03/23 16:45 Oxygen Delivery Method Room Air 09/03/23 16:45 Vital Signs Temperature 97 F L 09/03/23 16:45 Pulse Rate 76 09/03/23 16:45 Respiratory Rate 20 09/03/23 16:45 Blood Pressure 147/108 H 09/03/23 16:45 Pulse Oximetry 97 09/03/23 16:45 Oxygen Delivery Method Room Air 09/03/23 16:45 Temperature 97 F L 09/03/23 16:45 Pulse Rate 62 09/03/23 22:30 Respiratory Rate 20 09/03/23 16:45 Blood Pressure 133/96 H 09/03/23 22:16 Pulse Oximetry 96 09/03/23 22:30 Oxygen Delivery Method Room Air 09/03/23 17:14 Medical Decision Making Lab Data Labs: Lab Results 09/03/23 09/03/23 09/03/23 Range/Units 17:06 17:41 18:00 WBC (4.50-11.00) K/uL RBC (4.30-5.90) m/uL Hgb (13.5-17.5) gm/dL Hct (37.0-53.0) % MCV (80-100) fL MCH (26-34) pg MCHC (32-36) gm/dL RDW Coeff of Ella (11.5-15.5) % Plt Count (140-440) K/uL Neut % (Auto) (42.0-72.0) % Lymph % (Auto) (20-44) % [place] % (Auto) (0.0-11.0) % Eos % (Auto) (0.0-7.0) % Baso % (Auto) (0.0-3.0) % Neut # (Auto) (1.7-7.0) K/uL Lymph # (Auto) (0.90-2.90) K/uL [place] # (Auto) (0.00-0.90) K/UL Eos # (Auto) (0.00-0.50) K/uL Baso # (Auto) (0.00-0.30) K/uL Abs Immat Gran (auto) (0.00-0.30) K/uL Imm/Tot Granulo (auto) % D-Dimer Quant (PE/DVT) (0.00-0.50) ug/ml Sodium Potassium Chloride Carbon Dioxide Anion Gap BUN Creatinine Estimated Creat Clear Estimated GFR Glucose Lactate (0.5-1.9) mmol/L Calcium Magnesium (1.5-2.6) mg/dL Total Bilirubin (0.1-1.5) mg/dL Direct Bilirubin (0.0-0.5) mg/dL AST (12-35) U/L ALT (4-50) U/L Alkaline Phosphatase (40-150) U/L Troponin I (0.01-0.04) ng/mL C-Reactive Protein NT-Pro-B Natriuret Pep pg/mL Total Protein (6.0-8.3) g/dL Albumin (3.3-5.0) g/dL Lipase (23-300) U/L TSH (0.270-4.20) uIU/mL Urine Color Yellow (Yellow) Urine Appearance Clear (Clear) Urine pH 7.5 (5.0-8.5) Ur Specific [place] 1.020 (1.000-1.030) Urine Protein Negative (Negative) Urine Glucose (UA) 2+ A (Negative) Urine Ketones Negative (Negative) Urine Blood Trace-intact A (Negative) Urine Nitrite Negative (Negative) Urine Bilirubin Negative (Negative) Urine Urobilinogen 0.2 (0.2-1.0) Ur Leukocyte Esterase Negative (Negative) Urine RBC 0-2 (0-2) Urine WBC 0-2 (0-5) Urine WBC Clumps None (None) Ur Squamous Epith Cells None (None-Few) Amorphous Sediment Few A (None) Urine Bacteria None (None) Urine Opiates Screen Negative (Negative) Ur Oxycodone Screen Negative (Negative) Urine Methadone Screen Negative (Negative) Ur Barbiturates Screen Negative (Negative) U Tricyclic Antidepress Negative (Negative) Ur Phencyclidine Scrn Negative (Negative) Ur Amphetamines Screen Negative (Negative) U Methamphetamines Scrn Negative (Negative) U Benzodiazepines Scrn Negative (Negative) Urine Cocaine Screen Negative (Negative) U Marijuana (THC) Screen POSITIVE A (Negative) Ur Drug Screen Comment See Note Ethyl Alcohol SARS-CoV-2 (PCR) Negative SARS-CoV-2 (Negative) Influenza Type A (PCR) Negative PCR FLU A (Negative) Influenza Type B (PCR) Negative PCR FLU B (Negative) RSV (PCR) Negative PCR RSV (Negative) Lab Acknowledgement POC Troponin I 0.01 (0.01-0.04) ng/ml 09/03/23 09/03/23 09/03/23 Range/Units 18:40 18:40 18:40 WBC 7.55 (4.50-11.00) K/uL RBC 4.73 (4.30-5.90) m/uL Hgb 13.9 (13.5-17.5) gm/dL Hct 39.8 (37.0-53.0) % MCV 84 (80-100) fL MCH 29 (26-34) pg MCHC 35 (32-36) gm/dL RDW Coeff of Ella 12.3 (11.5-15.5) % Plt Count 63 L (140-440) K/uL Neut % (Auto) 48.1 (42.0-72.0) % Lymph % (Auto) 36.6 (20-44) % [place] % (Auto) 9.9 (0.0-11.0) % Eos % (Auto) 4.8 (0.0-7.0) % Baso % (Auto) 0.3 (0.0-3.0) % Neut # (Auto) 3.64 (1.7-7.0) K/uL Lymph # (Auto) 2.76 (0.90-2.90) K/uL [place] # (Auto) 0.70 (0.00-0.90) K/UL Eos # (Auto) 0.36 (0.00-0.50) K/uL Baso # (Auto) 0.02 (0.00-0.30) K/uL Abs Immat Gran (auto) 0.02 (0.00-0.30) K/uL Imm/Tot Granulo (auto) 0.3 % D-Dimer Quant (PE/DVT) 0.35 (0.00-0.50) ug/ml Sodium Cancelled 135 Potassium Cancelled 4.0 Chloride Cancelled Carbon Dioxide Anion Gap BUN Creatinine Estimated Creat Clear Estimated GFR Glucose Lactate (0.5-1.9) mmol/L Calcium Magnesium (1.5-2.6) mg/dL Total Bilirubin (0.1-1.5) mg/dL Direct Bilirubin (0.0-0.5) mg/dL AST (12-35) U/L ALT (4-50) U/L Alkaline Phosphatase (40-150) U/L Troponin I (0.01-0.04) ng/mL C-Reactive Protein NT-Pro-B Natriuret Pep pg/mL Total Protein (6.0-8.3) g/dL Albumin (3.3-5.0) g/dL Lipase (23-300) U/L TSH (0.270-4.20) uIU/mL Urine Color (Yellow) Urine Appearance (Clear) Urine pH (5.0-8.5) Ur Specific [place] (1.000-1.030) Urine Protein (Negative) Urine Glucose (UA) (Negative) Urine Ketones (Negative) Urine Blood (Negative) Urine Nitrite (Negative) Urine Bilirubin (Negative) Urine Urobilinogen (0.2-1.0) Ur Leukocyte Esterase (Negative) Urine RBC (0-2) Urine WBC (0-5) Urine WBC Clumps (None) Ur Squamous Epith Cells (None-Few) Amorphous Sediment (None) Urine Bacteria (None) Urine Opiates Screen (Negative) Ur Oxycodone Screen (Negative) Urine Methadone Screen (Negative) Ur Barbiturates Screen (Negative) U Tricyclic Antidepress (Negative) Ur Phencyclidine Scrn (Negative) Ur Amphetamines Screen (Negative) U Methamphetamines Scrn (Negative) U Benzodiazepines Scrn (Negative) Urine Cocaine Screen (Negative) U Marijuana (THC) Screen (Negative) Ur Drug Screen Comment Ethyl Alcohol SARS-CoV-2 (PCR) (Negative) Influenza Type A (PCR) (Negative) Influenza Type B (PCR) (Negative) RSV (PCR) (Negative) Lab Acknowledgement POC Troponin I (0.01-0.04) ng/ml 09/03/23 09/03/23 09/03/23 Range/Units 18:40 18:40 18:40 WBC (4.50-11.00) K/uL RBC (4.30-5.90) m/uL Hgb (13.5-17.5) gm/dL Hct (37.0-53.0) % MCV (80-100) fL MCH (26-34) pg MCHC (32-36) gm/dL RDW Coeff of Ella (11.5-15.5) % Plt Count (140-440) K/uL Neut % (Auto) (42.0-72.0) % Lymph % (Auto) (20-44) % [place] % (Auto) (0.0-11.0) % Eos % (Auto) (0.0-7.0) % Baso % (Auto) (0.0-3.0) % Neut # (Auto) (1.7-7.0) K/uL Lymph # (Auto) (0.90-2.90) K/uL [place] # (Auto) (0.00-0.90) K/UL Eos # (Auto) (0.00-0.50) K/uL Baso # (Auto) (0.00-0.30) K/uL Abs Immat Gran (auto) (0.00-0.30) K/uL Imm/Tot Granulo (auto) % D-Dimer Quant (PE/DVT) (0.00-0.50) ug/ml Sodium Potassium Chloride 101 Carbon Dioxide Cancelled 26 Anion Gap Cancelled 8 BUN Cancelled Creatinine Estimated Creat Clear Estimated GFR Glucose Lactate (0.5-1.9) mmol/L Calcium Magnesium (1.5-2.6) mg/dL Total Bilirubin (0.1-1.5) mg/dL Direct Bilirubin (0.0-0.5) mg/dL AST (12-35) U/L ALT (4-50) U/L Alkaline Phosphatase (40-150) U/L Troponin I (0.01-0.04) ng/mL C-Reactive Protein NT-Pro-B Natriuret Pep pg/mL Total Protein (6.0-8.3) g/dL Albumin (3.3-5.0) g/dL Lipase (23-300) U/L TSH (0.270-4.20) uIU/mL Urine Color (Yellow) Urine Appearance (Clear) Urine pH (5.0-8.5) Ur Specific [place] (1.000-1.030) Urine Protein (Negative) Urine Glucose (UA) (Negative) Urine Ketones (Negative) Urine Blood (Negative) Urine Nitrite (Negative) Urine Bilirubin (Negative) Urine Urobilinogen (0.2-1.0) Ur Leukocyte Esterase (Negative) Urine RBC (0-2) Urine WBC (0-5) Urine WBC Clumps (None) Ur Squamous Epith Cells (None-Few) Amorphous Sediment (None) Urine Bacteria (None) Urine Opiates Screen (Negative) Ur Oxycodone Screen (Negative) Urine Methadone Screen (Negative) Ur Barbiturates Screen (Negative) U Tricyclic Antidepress (Negative) Ur Phencyclidine Scrn (Negative) Ur Amphetamines Screen (Negative) U Methamphetamines Scrn (Negative) U Benzodiazepines Scrn (Negative) Urine Cocaine Screen (Negative) U Marijuana (THC) Screen (Negative) Ur Drug Screen Comment Ethyl Alcohol SARS-CoV-2 (PCR) (Negative) Influenza Type A (PCR) (Negative) Influenza Type B (PCR) (Negative) RSV (PCR) (Negative) Lab Acknowledgement POC Troponin I (0.01-0.04) ng/ml 09/03/23 09/03/23 09/03/23 Range/Units 18:40 18:40 18:40 WBC (4.50-11.00) K/uL RBC (4.30-5.90) m/uL Hgb (13.5-17.5) gm/dL Hct (37.0-53.0) % MCV (80-100) fL MCH (26-34) pg MCHC (32-36) gm/dL RDW Coeff of Ella (11.5-15.5) % Plt Count (140-440) K/uL Neut % (Auto) (42.0-72.0) % Lymph % (Auto) (20-44) % [place] % (Auto) (0.0-11.0) % Eos % (Auto) (0.0-7.0) % Baso % (Auto) (0.0-3.0) % Neut # (Auto) (1.7-7.0) K/uL Lymph # (Auto) (0.90-2.90) K/uL [place] # (Auto) (0.00-0.90) K/UL Eos # (Auto) (0.00-0.50) K/uL Baso # (Auto) (0.00-0.30) K/uL Abs Immat Gran (auto) (0.00-0.30) K/uL Imm/Tot Granulo (auto) % D-Dimer Quant (PE/DVT) (0.00-0.50) ug/ml Sodium Potassium Chloride Carbon Dioxide Anion Gap BUN 21 Creatinine Cancelled 0.7 Estimated Creat Clear Cancelled 76.57 Estimated GFR Cancelled Glucose Lactate (0.5-1.9) mmol/L Calcium Magnesium (1.5-2.6) mg/dL Total Bilirubin (0.1-1.5) mg/dL Direct Bilirubin (0.0-0.5) mg/dL AST (12-35) U/L ALT (4-50) U/L Alkaline Phosphatase (40-150) U/L Troponin I (0.01-0.04) ng/mL C-Reactive Protein NT-Pro-B Natriuret Pep pg/mL Total Protein (6.0-8.3) g/dL Albumin (3.3-5.0) g/dL Lipase (23-300) U/L TSH (0.270-4.20) uIU/mL Urine Color (Yellow) Urine Appearance (Clear) Urine pH (5.0-8.5) Ur Specific [place] (1.000-1.030) Urine Protein (Negative) Urine Glucose (UA) (Negative) Urine Ketones (Negative) Urine Blood (Negative) Urine Nitrite (Negative) Urine Bilirubin (Negative) Urine Urobilinogen (0.2-1.0) Ur Leukocyte Esterase (Negative) Urine RBC (0-2) Urine WBC (0-5) Urine WBC Clumps (None) Ur Squamous Epith Cells (None-Few) Amorphous Sediment (None) Urine Bacteria (None) Urine Opiates Screen (Negative) Ur Oxycodone Screen (Negative) Urine Methadone Screen (Negative) Ur Barbiturates Screen (Negative) U Tricyclic Antidepress (Negative) Ur Phencyclidine Scrn (Negative) Ur Amphetamines Screen (Negative) U Methamphetamines Scrn (Negative) U Benzodiazepines Scrn (Negative) Urine Cocaine Screen (Negative) U Marijuana (THC) Screen (Negative) Ur Drug Screen Comment Ethyl Alcohol SARS-CoV-2 (PCR) (Negative) Influenza Type A (PCR) (Negative) Influenza Type B (PCR) (Negative) RSV (PCR) (Negative) Lab Acknowledgement POC Troponin I (0.01-0.04) ng/ml 09/03/23 09/03/23 09/03/23 Range/Units 18:40 18:40 18:40 WBC (4.50-11.00) K/uL RBC (4.30-5.90) m/uL Hgb (13.5-17.5) gm/dL Hct (37.0-53.0) % MCV (80-100) fL MCH (26-34) pg MCHC (32-36) gm/dL RDW Coeff of Ella (11.5-15.5) % Plt Count (140-440) K/uL Neut % (Auto) (42.0-72.0) % Lymph % (Auto) (20-44) % [place] % (Auto) (0.0-11.0) % Eos % (Auto) (0.0-7.0) % Baso % (Auto) (0.0-3.0) % Neut # (Auto) (1.7-7.0) K/uL Lymph # (Auto) (0.90-2.90) K/uL [place] # (Auto) (0.00-0.90) K/UL Eos # (Auto) (0.00-0.50) K/uL Baso # (Auto) (0.00-0.30) K/uL Abs Immat Gran (auto) (0.00-0.30) K/uL Imm/Tot Granulo (auto) % D-Dimer Quant (PE/DVT) (0.00-0.50) ug/ml Sodium Potassium Chloride Carbon Dioxide Anion Gap BUN Creatinine Estimated Creat Clear Estimated GFR 99 Glucose Cancelled 350 H Lactate 1.6 (0.5-1.9) mmol/L Calcium Cancelled 8.6 Magnesium 1.8 (1.5-2.6) mg/dL Total Bilirubin 0.3 (0.1-1.5) mg/dL Direct Bilirubin 0.0 (0.0-0.5) mg/dL AST 16 (12-35) U/L ALT 14 (4-50) U/L Alkaline Phosphatase 98 (40-150) U/L Troponin I < 0.01 L (0.01-0.04) ng/mL C-Reactive Protein Cancelled NT-Pro-B Natriuret Pep pg/mL Total Protein (6.0-8.3) g/dL Albumin (3.3-5.0) g/dL Lipase (23-300) U/L TSH (0.270-4.20) uIU/mL Urine Color (Yellow) Urine Appearance (Clear) Urine pH (5.0-8.5) Ur Specific [place] (1.000-1.030) Urine Protein (Negative) Urine Glucose (UA) (Negative) Urine Ketones (Negative) Urine Blood (Negative) Urine Nitrite (Negative) Urine Bilirubin (Negative) Urine Urobilinogen (0.2-1.0) Ur Leukocyte Esterase (Negative) Urine RBC (0-2) Urine WBC (0-5) Urine WBC Clumps (None) Ur Squamous Epith Cells (None-Few) Amorphous Sediment (None) Urine Bacteria (None) Urine Opiates Screen (Negative) Ur Oxycodone Screen (Negative) Urine Methadone Screen (Negative) Ur Barbiturates Screen (Negative) U Tricyclic Antidepress (Negative) Ur Phencyclidine Scrn (Negative) Ur Amphetamines Screen (Negative) U Methamphetamines Scrn (Negative) U Benzodiazepines Scrn (Negative) Urine Cocaine Screen (Negative) U Marijuana (THC) Screen (Negative) Ur Drug Screen Comment Ethyl Alcohol SARS-CoV-2 (PCR) (Negative) Influenza Type A (PCR) (Negative) Influenza Type B (PCR) (Negative) RSV (PCR) (Negative) Lab Acknowledgement POC Troponin I (0.01-0.04) ng/ml 09/03/23 09/03/23 09/03/23 Range/Units 18:40 18:40 18:48 WBC (4.50-11.00) K/uL RBC (4.30-5.90) m/uL Hgb (13.5-17.5) gm/dL Hct (37.0-53.0) % MCV (80-100) fL MCH (26-34) pg MCHC (32-36) gm/dL RDW Coeff of Ella (11.5-15.5) % Plt Count (140-440) K/uL Neut % (Auto) (42.0-72.0) % Lymph % (Auto) (20-44) % [place] % (Auto) (0.0-11.0) % Eos % (Auto) (0.0-7.0) % Baso % (Auto) (0.0-3.0) % Neut # (Auto) (1.7-7.0) K/uL Lymph # (Auto) (0.90-2.90) K/uL [place] # (Auto) (0.00-0.90) K/UL Eos # (Auto) (0.00-0.50) K/uL Baso # (Auto) (0.00-0.30) K/uL Abs Immat Gran (auto) (0.00-0.30) K/uL Imm/Tot Granulo (auto) % D-Dimer Quant (PE/DVT) (0.00-0.50) ug/ml Sodium Potassium Chloride Carbon Dioxide Anion Gap BUN Creatinine Estimated Creat Clear Estimated GFR Glucose Lactate (0.5-1.9) mmol/L Calcium Magnesium (1.5-2.6) mg/dL Total Bilirubin (0.1-1.5) mg/dL Direct Bilirubin (0.0-0.5) mg/dL AST (12-35) U/L ALT (4-50) U/L Alkaline Phosphatase (40-150) U/L Troponin I (0.01-0.04) ng/mL C-Reactive Protein 0.9 NT-Pro-B Natriuret Pep 315 pg/mL Total Protein 6.7 (6.0-8.3) g/dL Albumin 4.0 (3.3-5.0) g/dL Lipase 73 (23-300) U/L TSH 2.220 (0.270-4.20) uIU/mL Urine Color (Yellow) Urine Appearance (Clear) Urine pH (5.0-8.5) Ur Specific [place] (1.000-1.030) Urine Protein (Negative) Urine Glucose (UA) (Negative) Urine Ketones (Negative) Urine Blood (Negative) Urine Nitrite (Negative) Urine Bilirubin (Negative) Urine Urobilinogen (0.2-1.0) Ur Leukocyte Esterase (Negative) Urine RBC (0-2) Urine WBC (0-5) Urine WBC Clumps (None) Ur Squamous Epith Cells (None-Few) Amorphous Sediment (None) Urine Bacteria (None) Urine Opiates Screen (Negative) Ur Oxycodone Screen (Negative) Urine Methadone Screen (Negative) Ur Barbiturates Screen (Negative) U Tricyclic Antidepress (Negative) Ur Phencyclidine Scrn (Negative) Ur Amphetamines Screen (Negative) U Methamphetamines Scrn (Negative) U Benzodiazepines Scrn (Negative) Urine Cocaine Screen (Negative) U Marijuana (THC) Screen (Negative) Ur Drug Screen Comment Ethyl Alcohol Cancelled < 0.01 L SARS-CoV-2 (PCR) (Negative) Influenza Type A (PCR) (Negative) Influenza Type B (PCR) (Negative) RSV (PCR) (Negative) Lab Acknowledgement Test Added POC Troponin I (0.01-0.04) ng/ml Discharge Plan Discharge Clinical Impression: Orthostatic lightheadedness, Hyperglycemia, Syncope, Hypertension Patient Disposition: Home w/ Parent or Adult Condition: Improved Additional Instructions: Stay well-hydrated. Take care in transitions. Your last blood pressure to this point was 133/96. Pulse was 69. There were number of measurements though where your diastolic was over 100 and your systolic was around 170. I would like you to follow-up with results of your head imaging here today and for your blood pressures and blood sugars soon as possible at [facility] as you mentioned or with other primary care provider. We are also sending you with a copy of your recent ER visit to [facility]. There is important information in there as well. Activity Level: No Restrictions Discharge Diet: Regular Prescriptions: No Action albuterol sulfate 2.5 mg /3 mL (0.083 %) solution for nebulization Patient Comments: [NO ORIGINAL SIG] sucralfate 1 gram tablet 1 g PO QID ondansetron HCl 4 mg tablet 4 mg PO Q8H PRN sennosides-docusate sodium [Stimulant Laxative Plus] 8.6-50 mg tablet PO tamsulosin 0.4 mg capsule 0.4 mg PO DAILY pantoprazole 40 mg tablet,delayed release (DR/EC) 40 mg PO DAILY losartan 25 mg tablet 25 mg PO DAILY nitroglycerin 0.4 mg tablet, sublingual sublingual divalproex 125 mg capsule, delayed rel sprinkle 250 mg PO BID spironolactone 50 mg tablet 50 mg PO DAILY insulin glargine [Lantus Solostar U-100 Insulin] 100 unit/mL (3 mL) insulin pen subcut fluticasone furoate-vilanterol [Breo Ellipta] 100-25 mcg/dose blister with device 1 ea INHALATION DAILY Follow Up/Referrals: Romaine Patten MD [Primary Care Provider] - Stand Alone Forms: [employer] Info Instructions
== END 2023-09-04 00:45 | disposition home or self-care (01) ==
PROVIDERS: Emergency Provider Family Medicine
DX: R42 Dizziness and giddiness (principal); R73.9 Hyperglycemia, unspecified; R55 Syncope and collapse; I10 Essential (primary) hypertension
CPT/HCPCS: 36415; 70450; 70551; 80048; 80076; 80306; 81001; 82077; 83605; 83690; 83735; 83880; 84443; 84484; 85025; 85379; 86140; 87040; 87631; 93005; 94761; 99284; 99285

== ENCOUNTER 2023-09-04 00:19 | Outpatient (CLI) | payer MEDICARE, BC, SELFPAY ==
--- OUTSIDE RECORDS SUMMARY | 2023-09-05 12:26 | XMS_ITS | Encounter Summary ---
Author Name [facility] Organization [facility] Address [address], [place] [address] Support Name Relationship Address Phone AMBER GEORGE Next of Kin [phone] [facility] [address] [place] [address] MIGUEL GEORGE Emergency Contact [address] [phone] [place] AMBER Next of Kin [phone] [facility] [place] [address] Insurance Providers: All historical and current Section Date Range: From patient's date of to the date document was created. This section includes the names of all active insurance providers for the patient. Insurance Provider Type of Coverage Plan Name Start of Policy Coverage End of Policy Coverage Group Number Member ID Insurance Provider's Telephone Number Policy Salvador's Name Patient's Relationship to Policy Salvador MEDICAID (WNR) MEDICAID MEDIC AID (WNR) Jun 13, 2016 MEDICAI D [id number] [phone] STEVEN GEORGE PATIENT MEDICAID (WNR) MEDICAID MEDIC AID (WNR) Aug 13, 2001 MEDICAI D [id number] [phone] STEVEN GEORGE PATIENT MEDICARE (WNR) MEDICARE (M) PART A Jul 13, 2002 PART A [id number] [phone] STEVEN GEORGE PATIENT MEDICARE (WNR) MEDICARE (M) PART B Jul 13, 2002 PART B [id number] [phone] STEVEN GEORGE PATIENT MEDICARE (WNR) MEDICARE (M) PART B Jul 13, 2002 PART B [id number] [phone] STEVEN GEORGE PATIENT MEDICARE (WNR) MEDICARE (M) PART A Jul 13, 2002 PART A [id number] [phone] STEVEN GEORGE PATIENT MEDICARE (WNR) MEDICARE (M) PART A Jul 13, 2002 PART A [id number] [phone] STEVEN GEORGE PATIENT MEDICARE (WNR) MEDICARE (M) PART B Jul 13, 2002 PART B [id number] [phone] STEVEN GEORGE PATIENT Selected Encounter This section includes the information on record at [facility] for the Encounter. Date/Time Encounter Type Encounter Description Reason Pro vider Source Oct 31, 2022 02:00 PM Outpatient Encounter TELEPHONE [facility] Encounter Template Text not used by [facility] Plan of Treatment: Future Appointments (+ 6 months) and Future Tests (+/- 45 days) The Plan of Treatment section includes future care activities for the patient from all [facility] treatmentfacilities. This section includes future appointments and future orders which are active, pending or scheduled. Future Appointments This section includes appointments that were scheduled to occur 6 months from the date of the Encounter, up to a maximum of 20 appointments. The data comes from all [facility] treatment facilities. Appointment Date/Time Appointment Type Appointme nt Facility Name December 11, 2022 01:30 PM [facility] Mar 13, 2023 01:00 PM [facility] Apr 04, 2023 01:30 PM [facility] ([facility]) Social History: Smoking Status (Most current) and Tobacco Use (All prior to encounter date) This section includes the most current, and the historical, smoking and tobacco- related health factors from the [facility] facility where the Encounter took place. Current Smoking Status This section includes the most current smoking, or tobacco-related health factor, from the [facility] facility where the Encounter took place. 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 The data comes from the [facility] facility where the Encounter took place. 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 [facility] ([facility]) Apr 05, 2020 11:00 AM VA-TOBACCO USE MED YES [facility] ([facility]) Apr 05, 2020 11:00 AM VA-TOBACCO USE WI 30 MIN OF WAKE UP [facility] ([facility]) Apr 05, 2020 11:00 AM VA-TOBACCO USER EVERY DAY [facility] ([facility]) Sep 14, 2016 01:52 PM FORMER TOBACCO USER 7Y OR GREATE R [facility] ([facility]) Nov 29, 2015 01:04 PM FORMER TOBACCO USER 7Y OR GREATE R [facility] ([facility]) Nov 20, 2014 12:05 PM FORMER TOBACCO USER 7Y OR GREATE R [facility] ([facility]) Jul 07, 2013 10:54 AM FORMER TOBACCO USE >1Y <7Y [facility]) Jul 18, 2012 01:08 PM FORMER TOBACCO USE >1Y <7Y [facility] ([facility]) Sep 26, 2011 01:22 PM FORMER TOBACCO USE >1Y <7Y [facility] ([facility]) December 23, 2010 03:00 PM FORMER TOBACCO USE >1Y <7Y [facility] ([facility]) Feb 09, 2010 10:49 AM FORMER TOBACCO USE >1Y <7Y [facility] ([facility]) May 06, 2009 11:15 AM FORMER TOBACCO USE <1Y [facility] ([facility]) Jul 03, 2008 02:47 PM CURRENT TOBACCO USER [facility] ([facility]) Apr 20, 2008 09:01 PM PATIENT ADVISED TO QUIT TOBACCO [facility] Apr 20, 2008 09:01 PM PATIENT IS TOBACCO USER [facility] Apr 20, 2008 09:01 PM PATIENT REFERRED F OR TOBACCO CESSATION [facility] Apr 20, 2008 09:01 PM PATIENT WILLING TO QUIT TOBACCO [facility] Sep 20, 2007 01:28 PM FORMER TOBACCO USE <1Y [facility] ([facility]) Dec 04, 2006 11:00 AM FORMER TOBACCO USE <1Y [facility] ([facility]) Advance Directives: All historical and current Section Date Range: From patient's date of to the date document was created. This section includes ALL of a patient's completed or amended [facility] Advance and Rescinded Directives. The entries below indicate that a directive exists for the patient, but an actual copy is not included with this document. The data comes from all [facility] facilities. Date Advance Directives Provider Source December 24, 2003 ADVANCE DIRECTIVE ANTONIO OLVERA ([facility]) Aug 26, 2002 ADVANCE DIRECTIVE [facility] Encounter Notes: All associated encounter notes This section contains the clinical notes associated to the Encounter. Date/Time Encounter Note(s) Provider Source Oct 31, 2022 02:26 PM NO SHOW NOTE: LOCAL TITLE: NO SHOW NOTE STANDARD TITLE: NO SHOW NOTE DATE OF NOTE: OCT 31, 2022@14:26 ENTRY DATE: OCT 31, 2022@14:26:48 AUTHOR: TYLER LAND EXP COSIGNER: URGENCY: STATUS: COMPLETED NO SHOW NOTE Has ADDENDA Patient did not appear for scheduled appointment. Risk Factors: gender, age, psych dx Protective Factors: lives in [place], motivated for care, very resourceful, postive coping skills, very good support Clinician Judgment of Risk: low acute/low chronic Plan Based on Clinician Judgment of Risk: Declo did not answer phone call. No follow up is needed. 2 no shows in a row last appt with him was 07/13/2021 . He does not need medication management as he has this in [facility]. Is the identified with a high risk for suicide flag? No /es/ TYLER LAND NURSE PRACTITIONER Signed: 10/31/2022 14:31 Receipt Acknowledged By: 11/01/2022 07:55 /karrie/ SURINDER FERRARA, PHD, Psychology city plant supervisor and [facility] programmer analyst consultant * AWAITING SIGNATURE * SAMREEN SCOTT 11/01/2022 08:11 /karrie/ TELMA MENESES,RN Registered Nurse 10/31/2022 14:50 /suzanne CASTORENA 10/31/2022 ADDENDUM STATUS: COMPLETED I called patients phone number listed and he did not answer. It rang 6-7 times before going to . I left [facility] with return phone number to call for follow up needs if desired. /karrie/ TELMA MENESES RN Registered Nurse Signed: 10/31/2022 14:38 10/31/2022 ADDENDUM STATUS: COMPLETED called in at [phone] for 1400 appointment. asked to be scheduled w/[facility]- I advised next available is 12/11- has been scheduled there. /karrie/ CHALINO CASTORENA Signed: 10/31/2022 14:51 11/01/2022 ADDENDUM STATUS: COMPLETED [facility], I called 's phone number listed this morning and left a voice message. I requested a call back to discuss his appointment for 12/11/2022. My understanding is that all of his [facility] at his [facility] with the contracted physicians provider. (so likely wouldn't be appropriate or needing [facility] appointment) Perhaps he is looking for therapy? I would like to discuss with what services he is looking to receive from the [facility]. If he calls back again, please alert me and I would like to talk to him, thank you. /karrie/ TELMA MENESES RN Registered Nurse Signed: 11/01/2022 08:19 Receipt Acknowledged By: * AWAITING SIGNATURE * CHALINO CASTORENA,[facility] ([facility])
--- OUTSIDE RECORDS SUMMARY | 2023-09-05 12:26 | XMS_ITS | Continuity of Care Document ---
Author Name [facility] Organization [facility] Care Team Providers Care Clearing House Clerk Name Role Phone [facility] Unavailable Unavailable Problems Combined list of problems from Department of Defense and Veterans Affairs facilities. It does not include entries that were removed or entered in error. Problem Status Onset Date Problem Type Date of Resolution Comments Source Edema Active 010 Condition Apr 07, 2010 Entered By: CAROLE DUBOSE Comment: acute lower extremity bilateral - multifactorial [facility] Cervical spondylosis with myelopathy Active 000 Condition Apr 20, 2008 Entered By: JEN MACIAS Comment: S/P C2-7 decompression with C5-7 fusion in 1999 [facility] ALCOHOL ABUSE CONT Active Condition [facility] Alcohol dependence (SNOMED CT 52583387) Active Condition [facility] Anemia Active Condition Jul 18 Entered By: TYRESE AUGUST Comment: GI work up ordered at [place] 07/2012 [place] ([facility]) Webb esophagus Active Condition 2010 Entered By: TYRESE AUGUST Comment: [place] egd 01/25/2011 [place] ([facility]) Bipolar affective disorder, currently depressed, moderate Active Condition [place] ([facility]) Bipolar Disorder Active Condition . 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) Active Condition [place] ([facility]) Hyperlipidemia (SNOMED CT 29403543) Active Condition [place] ([facility]) HYPERTENSION Active Condition [facility] Hypertension (SNOMED CT 31237571) Active Condition [facility] Hypothyroidism Active Condition [facility] [place] DE[facility] EPIS Active Condition [facility] PAIN, NECK/CERVICALGIA Active Condition [facility] Sleep apnea Active Condition [facility] TOBACCO USE DISORDER Active Condition [facility] Alcoh Depend, In Remiss Inactive Condition 07/18/2012 [facility] Low Testosterone Level Inactive Condition 07/18/2012 [place] ([facility]) Noncompliance with Treatment (ICD-9-CM V15.81) Inactive Condition 07/18/2012 [facility] Other chronic Pain (ICD-9-CM 338.29) Inactive Condition 07/18/2012 [place] ([facility]) Tobacco Use Disorder Inactive Condition 07/18/2012 [facility] Unspecified Sleep Apnea (ICD-9-CM 780.57) Inactive Condition 07/18/2012 [facility] Vertigo/Dizziness , Unsp Inactive Condition 07/18/2012 [facility] Diagnosis: ICD-10-CM L98.9 Disorder of the skin and subcutaneous tissue, unspecified Active Diagnosis [place] ([facility]) Diagnosis: ICD-10-CM R25.1 Tremor, unspecified Active Diagnosis [facility] Diagnosis: ICD-10-CM E11.40 Type 2 diabetes mellitus with diabetic neuropathy, unsp Active Diagnosis [facility] Diagnosis: ICD-10-CM F31.30 Bipolar disord, crnt epsd depress, mild or mod severt, unsp Active Diagnosis [facility] Medications Combined list of outpatient medications from Department of Defense and [facility] Affairs facilities.Medications provided include 1) outpatient medications from the last 15 months, and 2) patient-reported medications. Medication Details Route Status Patient Instructions Prescription Expires Prescription Number Last Dispense Date Ordering Provider Order Date Source ACETAMINOPH EN TAB TAKE 1000 MG BY MOUTH EVERY 6 HOURS NEEDED ORALLY ACTIVE WISAM BRADFORD 2016 [facility] ALBUTEROL 90MCG/ACTUA T (CFC-F) INHL,ORAL,8 .5GM DOSE COUNTER INHALE 2 PUFFS BY INHALATI ON EVERY 6 HOURS NEEDED INHALA TION ACTIVE BJ HAYWARD 2016 [facility] ALBUTEROL SO4 0.083% INHL,3ML INHALE 3ML IN NEBULIZE R BY INHALATI ON EVERY 8 HOURS NEEDED INHALA TION ACTIVE TOMMY IQBAL 2022 [facility]) DIVALPROEX NA 125MG CAP,SPRINKL E TAKE 2 CAPSULES BY MOUTH TWICE A DAY ORALLY ACTIVE TOMMY IQBAL 2022 [facility]) DOCUSATE NA 50MG/SENNOS IDES 8.6MG TAB TAKE ONE TABLET BY MOUTH TWICE A DAY NEEDED ORALLY ACTIVE TOMMY IQBAL 2022 [facility]) FAMOTIDINE 20MG TAB TAKE ONE TABLET BY MOUTH EVERY DAY ORALLY ACTIVE TOMMY IQBAL 2022 [facility]) HALOPERIDOL 1MG TAB TAKE ONE TABLET BY MOUTH EVERY 4 HOURS NEEDED ORALLY ACTIVE TOMMY IQBAL 2022 [facility]) HYOSCYAMINE SO4 0.125MG TAB TAKE ONE TABLET BY MOUTH EVERY 4 HOURS NEEDED ORALLY ACTIVE TOMMY IQBAL 2022 [facility]) INSULIN GLARGINE 100UNIT/ML INJ INJECT 40 UNITS UNDER THE SKIN TWICE A DAY SUBCUT ANEOUS ACTIVE TOMMY IQBAL 2022 [facility]) KETOCONAZOL E 2% CREAM,TOP APPLY THIN LAYER TWICE A DAY NEEDED TOPICA LLY ACTIVE [facility] KETOCONAZOL E SHAMPOO SHAMPOO PRN TOPICA LLY ACTIVE YESYBJ R 2016 [place] [facility] LORAZEPAM 0.5MG TAB TAKE ONE TABLET BY MOUTH EVERY 4 HOURS NEEDED ORALLY ACTIVE FARIDATOMMY 2022 [facility]) MORPHINE TAB,IR TAKE MORPHINE SOLUBE TAB 10MG sublingu al TWICE A DAY ACTIVE FARIDATOMMY 2022 [facility]) MORPHINE TAB,IR TAKE MORPHINE SOLUBE TAB 5MG sublingu al EVERY 3 HOURS NEEDED ACTIVE FARIDATOMMY 2022 [facility]) NITROGLYCER IN 0.4MG TAB,SUBLING UAL DISSOLVE ONE TABLET UNDER THE TONGUE PRN SUBLIN GUAL ACTIVE BJ HAYWARD R 2016 [place] [facility] ONDANSETRON HCL 4MG TAB TAKE ONE TABLET BY MOUTH EVERY 8 HOURS NEEDED ORALLY ACTIVE FARIDATOMMY 2019 [facility]) PRAZOSIN HCL 5MG CAP TAKE 2 CAPSULES BY MOUTH AT BEDTIME ORALLY ACTIVE TOMMY IQBAL 2019 [facility]) SPIRONOLACT ONE 25MG TAB TAKE TWO TABLETS BY MOUTH EVERY DAY ORALLY ACTIVE TOMMY IQBAL 2022 [facility]) Allergies, Adverse Reactions, Alerts Combined list of allergies from Department of Defense and Veterans Affairs facilities. It does not include entries that were removed or entered in error. Substance Category Reaction Severity Reaction type Status Date Reported Comments Source GABAPENTIN Propensity to adverse reactions to drug (finding) Seizure active 7 [facility] SULFA DRUGS Propensity to adverse reactions to drug (finding) Eruption active 6 [facility] Immunizations Combined list of available immunizations from the Department of [facility] and Veterans Affairs facilities. Immunization Series Date Given Administered By Site Reaction Lot Number CVX Code [facility] Assistant Status Comments Source COVID-19 (PFIZER), MRNA, LNP-S, PF, MAURICIO-SUCROSE, 30 MCG/0.3 ML (AGES 12+ YEARS) 1 2022 GABBI MILLER LEFT DELTO ID [id number] 309 complet ed [facility]) ZOSTER RECOMBINANT 2 2022 GABBI MILLER LEFT DELTO ID [id number] 187 complet ed [id number] [facility] INFLUENZA, HIGH-DOSE, QUADRIVALENT 2022 GABBI MILLER LEFT DELTO ID [id number] 197 complet ed [facility]) ZOSTER RECOMBINANT 1 2022 GABBI MILLER RIGHT DELTO ID [id number] 187 complet ed [id number] [facility] COVID-19 (MODERNA), MRNA, LNP-S, PF, 100 MCG/0.5ML DOSE OR 50 MCG/0.25ML DOSE 2021 207 complet ed [facility] COVID-19 (MODERNA), MRNA, LNP-S, PF, 100 MCG/0.5ML DOSE OR 50 MCG/0.25ML DOSE 2020 207 complet ed [facility] INFLUENZA, HIGH-DOSE, QUADRIVALENT 2020 197 complet ed [facility] COVID-19 (MODERNA), MRNA, LNP-S, PF, 100 MCG/0.5 ML DOSE 2 2020 207 complet ed [facility] COVID-19 (MODERNA), MRNA, LNP-S, PF, 100 MCG/0.5 ML DOSE 1 2020 207 complet ed [facility] INFLUENZA, HIGH-DOSE, QUADRIVALENT 2019 197 complet ed [facility] INFLUENZA, TRIVALENT, ADJUVANTED 2018 168 complet ed [facility] INFLUENZA, UNSPECIFIED FORMULATION 2017 88 complet ed [facility] PNEUMOCOCCAL POLYSACCHARID E PPV23 2016 33 complet ed per [facility] INFLUENZA, HIGH DOSE SEASONAL 2016 135 complet ed [facility] INFLUENZA, SEASONAL, INJECTABLE, PRESERVATIVE FREE 2016 140 complet ed [facility] INFLUENZA, INJECTABLE, QUADRIVALENT 2015 158 complet ed [facility] INFLUENZA, SEASONAL, INJECTABLE 2015 141 complet ed [facility] INFLUENZA, HIGH DOSE SEASONAL 2015 135 complet ed [facility] INFLUENZA, INJECTABLE, QUADRIVALENT 2014 158 complet ed [facility] PNEUMOCOCCAL CONJUGATE PCV 13 2014 133 complet ed [facility] PNEUMOCOCCAL CONJUGATE PCV 13 2014 133 complet ed Samara,[id number],exp: 06/27 [place] [facility] INFLUENZA, HIGH DOSE SEASONAL 2013 135 complet ed [facility] INFLUENZA, HIGH DOSE SEASONAL 2013 135 complet ed [facility] INFLUENZA, SEASONAL, INJECTABLE 2013 141 complet ed per pt reporting [facility] ZOSTER LIVE 2012 121 complet ed [facility] INFLUENZA, HIGH DOSE SEASONAL 2012 135 complet ed [facility] INFLUENZA, UNSPECIFIED FORMULATION 2012 88 complet ed [facility] INFLUENZA, HIGH DOSE SEASONAL 2011 135 complet ed [facility] INFLUENZA, UNSPECIFIED FORMULATION 2011 88 complet ed [facility] ZOSTER LIVE 2011 121 complet ed [facility] INFLUENZA, SEASONAL, INJECTABLE 2011 141 complet ed [facility] PNEUMOCOCCAL POLYSACCHARID E PPV23 2011 33 complet ed [facility] INFLUENZA, UNSPECIFIED FORMULATION 2010 88 complet ed [facility] INFLUENZA, SEASONAL, INJECTABLE, PRESERVATIVE FREE 2010 140 complet ed [facility] INFLUENZA, UNSPECIFIED FORMULATION 2009 88 complet ed [facility] NOVEL INFLUENZA-H1N 1-09, ALL FORMULATIONS 2009 128 complet ed [employer] [place] [facility] INFLUENZA, UNSPECIFIED FORMULATION 2008 88 complet ed [facility] PNEUMOCOCCAL, UNSPECIFIED FORMULATION 2008 109 complet ed Patient is unsure when or where he received it but is adamant he has already received it. [facility] INFLUENZA, UNSPECIFIED FORMULATION 2007 88 complet ed [facility] TDAP 2007 115 complet ed [facility] INFLUENZA, UNSPECIFIED FORMULATION 2006 EDUARDO MAS 88 comple t ed [facility] INFLUENZA, UNSPECIFIED FORMULATION 2005 88 complet ed [facility] INFLUENZA, SEASONAL, INJECTABLE 2004 141 complet ed [facility] PNEUMOCOCCAL POLYSACCHARID E PPV23 2004 33 complet ed [facility] INFLUENZA (HISTORICAL) 2004 88 complet ed [facility] INFLUENZA (HISTORICAL) 2002 88 complet ed pt reports [facility] TD(ADULT) UNSPECIFIED FORMULATION 2002 139 complet ed pt reports [facility] INFLUENZA, UNSPECIFIED FORMULATION 2001 88 complet ed [facility] PNEUMOCOCCAL, UNSPECIFIED FORMULATION 2001 109 complet ed [facility] Results Combined list of recent chemistry, hematology and other laboratory results from Department of Defense and Veterans Affairs, ranging from 15 months to all on record, depending upon the facility. Order Name Results Value Reference Range Date Interpretation Specimen Comments Source MICROALB UMIN/CRE ATININE RATIO URINE CREATININE [MASS/VOLU ME] IN URINE 229.8 58.0 - 161.0 08/23 H Specimen Type: URINE No comment entered. Ordering Provider: TOMMY IQBAL Report Released Date/Time: Aug 23, 2023 02:31 PM Reporting Lab: [facility] [phone] Performing Lab: [facility] [phone] [place] ([facility]) MICROALB UMIN/CRE ATININE RATIO URINE MICROALBUM IN/CREATIN INE [MASS RATIO] IN URINE 8.6 <29.9 - 29.9 08/23 Specimen Type: URINE No comment entered. Ordering Provider: TOMMY IQBAL Report Released Date/Time: Aug 23, 2023 02:31 PM Reporting Lab: [facility] [phone] Performing Lab: [facility] [address] [place] ([facility]) MICROALB UMIN/CRE ATININE RATIO URINE MICROALBUM IN [MASS/VOLU ME] IN URINE 19.8 <29.9 - 29.9 08/23 Specimen Type: URINE No comment entered. Ordering Provider: TOMMY IQBAL Report Released Date/Time: Aug 23, 2023 02:31 PM Reporting Lab: [facility] [phone] Performing Lab: [facility] [phone] [place] ([facility]) POC URINALYS IS SPECIFIC GRAVITY OF URINE >=1.030 1.001 - 1.035 08/23 H Specimen Type: URINE No comment entered. Ordering Provider: TOMMY IQBAL Report Released Date/Time: Aug 23, 2023 03:00 PM Reporting Lab: [facility] [address] [place] [phone] Performing Lab: [facility] [address] [place] [phone] [place] ([facility]) POC URINALYS IS PH OF URINE BY TEST STRIP 5.0 4.6 - 8.0 08/23 Specimen Type: URINE No comment entered. Ordering Provider: TOMMY IQBAL Report Released Date/Time: Aug 23, 2023 03:00 PM Reporting Lab: [facility] [address] [place] [phone] Performing Lab: [facility] [address] [place] [phone] [place] ([facility]) POC URINALYS IS LEUKOCYTE ESTERASE [PRESENCE] IN URINE BY TEST STRIP Negative 08/23 Specimen Type: URINE No comment entered. Ordering Provider: TOMMY IQBAL Report Released Date/Time: Aug 23, 2023 03:00 PM Reporting Lab: [facility] [address] [place] [phone] Performing Lab: [facility] [address] [place] [phone] [place] ([facility]) POC URINALYS IS NITRITE [PRESENCE] IN URINE BY TEST STRIP Negative 08/23 Specimen Type: URINE No comment entered. Ordering Provider: TOMMY IQBAL Report Released Date/Time: Aug 23, 2023 03:00 PM Reporting Lab: [facility] [address] [place] [phone] Performing Lab: [facility] [address] [place] [phone] [place] ([facility]) POC URINALYS IS PROTEIN [PRESENCE] IN URINE Negative 08/23 Specimen Type: URINE No comment entered. Ordering Provider: TOMMY IQBAL Report Released Date/Time: Aug 23, 2023 03:00 PM Reporting Lab: [facility] [address] [place] [phone] Performing Lab: [facility] [address] [place] [phone] [place] ([facility]) POC URINALYS IS FASTING GLUCOSE [PRESENCE] IN URINE BY TEST STRIP Negative 08/23 Specimen Type: URINE No comment entered. Ordering Provider: TOMMY IQBAL Report Released Date/Time: Aug 23, 2023 03:00 PM Reporting Lab: [facility] [address] [place] [phone] Performing Lab: [facility] [address] [place] [phone] [place] ([facility]) POC URINALYS IS KETONES [MASS/VOLU ME] IN URINE BY TEST STRIP Trace 08/23 H Specimen Type: URINE No comment entered. Ordering Provider: TOMMY IQBAL Report Released Date/Time: Aug 23, 2023 03:00 PM Reporting Lab: [facility] [address] [place] [phone] Performing Lab: [facility] [address] [place] [phone] [place] ([facility]) POC URINALYS IS BILIRUBIN. TOTAL [MASS/VOLU ME] IN URINE Negative 08/23 Specimen Type: URINE No comment entered. Ordering Provider: TOMMY IQBAL Report Released Date/Time: Aug 23, 2023 03:00 PM Reporting Lab: [facility] [address] [place] [phone] Performing Lab: [facility] [address] [place] [phone] [place] ([facility]) POC URINALYS IS HEMOGLOBIN [PRESENCE] IN URINE BY TEST STRIP Negative 08/23 Specimen Type: URINE No comment entered. Ordering Provider: TOMMY IQBAL Report Released Date/Time: Aug 23, 2023 03:00 PM Reporting Lab: [facility] [address] [place] [phone] Performing Lab: [facility] [address] [place] [phone] [place] ([facility]) POC URINALYS IS COLOR OF URINE Dark yellow 08/23 H Specimen Type: URINE No comment entered. Ordering Provider: TOMMY IQBAL Report Released Date/Time: Aug 23, 2023 03:00 PM Reporting Lab: [facility] [address] [place] [phone] Performing Lab: [facility] [address] [place] [phone] [place] ([facility]) POC URINALYS IS APPEARANCE OF URINE Turbid 08/23 H Specimen Type: URINE No comment entered. Ordering Provider: TOMMY IQBAL Report Released Date/Time: Aug 23, 2023 03:00 PM Reporting Lab: [facility] [address] [place] [phone] Performing Lab: [facility] [address] [place] [phone] [place] ([facility]) TSH W/REFLEX TO FREE T4 THYROTROPI N [UNITS/VOL UME] IN SERUM OR PLASMA 1.36 0.35 - 4.94 08/23 Specimen Type: PLASMA Comment: Elevated triglycerid e result from a non-fasting specimen should be interpreted with caution. A fasting panel is recommended for accurate triglycerid es when trigs are >200 from a non-fasting specimen. Ordering Provider: TOMMY IQBAL Report Released Date/Time: Aug 23, 2023 02:28 PM Reporting Lab: [facility] [phone] Performing Lab: [facility] [phone] [place] ([facility]) LIPID PANEL,NO N-FASTIN G CHOLESTERO L [MASS/VOLU ME] IN SERUM OR PLASMA 202 <199 - 199 08/23 H Specimen Type: PLASMA Comment: Elevated triglycerid e result from a non-fasting specimen should be interpreted with caution. A fasting panel is recommended for accurate triglycerid es when trigs are >200 from a non-fasting specimen. Ordering Provider: TOMMY IQBAL Report Released Date/Time: Aug 23, 2023 02:28 PM Reporting Lab: [facility] [phone] Performing Lab: [place] [id number] ([facility]) LIPID PANEL,NO N-FASTIN G CHOLESTERO L IN HDL [MASS/VOLU ME] IN SERUM OR PLASMA 34 40 08/23 L Specimen Type: PLASMA Comment: Elevated triglycerid e result from a non-fasting specimen should be interpreted with caution. A fasting panel is recommended for accurate triglycerid es when trigs are >200 from a non-fasting specimen. Ordering Provider: TOMMY IQBAL Report Released Date/Time: Aug 23, 2023 02:28 PM Reporting Lab: [facility] [phone] Performing Lab: [facility] [phone] [place] [address] ([facility]) LIPID PANEL,NO N-FASTIN G CHOLESTERO L IN LDL [MASS/VOLU ME] IN SERUM OR PLASMA BY CALCULATIO N 123 <99 - 99 08/23 H Specimen Type: PLASMA Comment: Elevated triglycerid e result from a non-fasting specimen should be interpreted with caution. A fasting panel is recommended for accurate triglycerid es when trigs are >200 from a non-fasting specimen. Ordering Provider: TOMMY IQBAL Report Released Date/Time: Aug 23, 2023 02:28 PM Reporting Lab: [facility] [phone] Performing Lab: [facility] [phone] [place] [address] ([facility]) LIPID PANEL,NO N-FASTIN G CHOLESTERO L IN VLDL [MASS/VOLU ME] IN SERUM OR PLASMA BY CALCULATIO N 45 <29 - 29 08/23 H Specimen Type: PLASMA Comment: Elevated triglycerid e result from a non-fasting specimen should be interpreted with caution. A fasting panel is recommended for accurate triglycerid es when trigs are >200 from a non-fasting specimen. Ordering Provider: TOMMY IQBAL Report Released Date/Time: Aug 23, 2023 02:28 PM Reporting Lab: [place] [address] Performing Lab: [address] ([facility]) LIPID PANEL,NO N-FASTIN G CHOLESTERO L NON HDL [MASS/VOLU ME] IN SERUM OR PLASMA 168 <129 - 129 08/23 H Specimen Type: PLASMA Comment: Elevated triglycerid e result from a non-fasting specimen should be interpreted with caution. A fasting panel is recommended for accurate triglycerid es when trigs are >200 from a non-fasting specimen. Ordering Provider: TOMMY IQBAL Report Released Date/Time: Aug 23, 2023 02:28 PM Reporting Lab: [place] [address] Performing Lab: [address] ([facility]) LIPID PANEL,NO N-FASTIN G TRIGLYCERI DE [MASS/VOLU ME] IN SERUM OR PLASMA 225 <149 - 149 08/23 H Specimen Type: PLASMA Comment: Elevated triglycerid e result from a non-fasting specimen should be interpreted with caution. A fasting panel is recommended for accurate triglycerid es when trigs are >200 from a non-fasting specimen. Ordering Provider: TOMMY IQBAL Report Released Date/Time: Aug 23, 2023 02:28 PM Reporting Lab: [place] [address] Performing Lab: [address] ([facility]) HEMOGLOB IN A1C HEMOGLOBIN A1C/HEMOGL OBIN.TOTAL IN BLOOD 8.3 4.0 - 6.0 08/23 H Specimen Type: BLOOD Comment: Values obtained from A1C measurement s can vary. For typical A1C assays, a reported value of 7.0 could actually be between 6.7 and 7.3 if measured by a reference method. A reported value of 9.0 could actually be between 8.7 and 9.3. Ref: http://www. ngsp.org/[place] Pdata.asp Ordering Provider: TOMMY IQBAL Report Released Date/Time: Aug 23, 2023 02:28 PM Reporting Lab: [facility] [phone] Performing Lab: [facility] [phone] [place] ([facility]) BASIC METABOLI C PANEL+MG CREATININE [MASS/VOLU ME] IN SERUM OR PLASMA 0.9 0.7 - 1.2 08/23 Specimen Type: PLASMA Comment: Elevated triglycerid e result from a non-fasting specimen should be interpreted with caution. A fasting panel is recommended for accurate triglycerid es when trigs are >200 from a non-fasting specimen. Ordering Provider: TOMMY IQBAL Report Released Date/Time: Aug 23, 2023 02:28 PM Reporting Lab: [facility] [phone] Performing Lab: [facility] [address] [place] ([facility]) BASIC METABOLI C PANEL+MG UREA NITROGEN [MASS/VOLU ME] IN SERUM OR PLASMA 17 8 - 26 08/23 Specimen Type: PLASMA Comment: Elevated triglycerid e result from a non-fasting specimen should be interpreted with caution. A fasting panel is recommended for accurate triglycerid es when trigs are >200 from a non-fasting specimen. Ordering Provider: TOMMY IQBAL Report Released Date/Time: Aug 23, 2023 02:28 PM Reporting Lab: [facility] [phone] Performing Lab: [facility] [address] [place] ([facility]) BASIC METABOLI C PANEL+MG GLUCOSE [MASS/VOLU ME] IN SERUM OR PLASMA 393 70 - 100 08/23 H Specimen Type: PLASMA Comment: Elevated triglycerid e result from a non-fasting specimen should be interpreted with caution. A fasting panel is recommended for accurate triglycerid es when trigs are >200 from a non-fasting specimen. Ordering Provider: TOMMY IQBAL Report Released Date/Time: Aug 23, 2023 02:28 PM Reporting Lab: [facility] [phone] Performing Lab: [facility] [address] [place] ([facility]) BASIC METABOLI C PANEL+MG SODIUM [MOLES/VOL UME] IN SERUM OR PLASMA 135 136 - 145 08/23 L Specimen Type: PLASMA Comment: Elevated triglycerid e result from a non-fasting specimen should be interpreted with caution. A fasting panel is recommended for accurate triglycerid es when trigs are >200 from a non-fasting specimen. Ordering Provider: TOMMY IQBAL Report Released Date/Time: Aug 23, 2023 02:28 PM Reporting Lab: [facility] [phone] Performing Lab: [facility] [address] [place] ([facility]) BASIC METABOLI C PANEL+MG POTASSIUM [MOLES/VOL UME] IN SERUM OR PLASMA 4.2 3.5 - 5.1 08/23 Specimen Type: PLASMA Comment: Elevated triglycerid e result from a non-fasting specimen should be interpreted with caution. A fasting panel is recommended for accurate triglycerid es when trigs are >200 from a non-fasting specimen. Ordering Provider: TOMMY IQBAL Report Released Date/Time: Aug 23, 2023 02:28 PM Reporting Lab: [facility] [phone] Performing Lab: [facility] [address] [place] ([facility]) BASIC METABOLI C PANEL+MG CHLORIDE [MOLES/VOL UME] IN SERUM OR PLASMA 104 98 - 107 08/23 Specimen Type: PLASMA Comment: Elevated triglycerid e result from a non-fasting specimen should be interpreted with caution. A fasting panel is recommended for accurate triglycerid es when trigs are >200 from a non-fasting specimen. Ordering Provider: TOMMY IQBAL Report Released Date/Time: Aug 23, 2023 02:28 PM Reporting Lab: [facility] [address] Performing Lab: [facility] [address] [place] ([facility]) BASIC METABOLI C PANEL+MG CARBON DIOXIDE, TOTAL [MOLES/VOL UME] IN SERUM OR PLASMA 20 22 - 29 08/23 L Specimen Type: PLASMA Comment: Elevated triglycerid e result from a non-fasting specimen should be interpreted with caution. A fasting panel is recommended for accurate triglycerid es when trigs are >200 from a non-fasting specimen. Ordering Provider: TOMMY IQBAL Report Released Date/Time: Aug 23, 2023 02:28 PM Reporting Lab: [facility] [address] Performing Lab: [facility] [address] [place] ([facility]) BASIC METABOLI C PANEL+MG CALCIUM [MASS/VOLU ME] IN SERUM OR PLASMA 8.7 8.4 - 10.2 08/23 Specimen Type: PLASMA Comment: Elevated triglycerid e result from a non-fasting specimen should be interpreted with caution. A fasting panel is recommended for accurate triglycerid es when trigs are >200 from a non-fasting specimen. Ordering Provider: TOMMY IQBAL Report Released Date/Time: Aug 23, 2023 02:28 PM Reporting Lab: [facility] [phone] Performing Lab: [facility] [address] [place] ([facility]) BASIC METABOLI C PANEL+MG MAGNESIUM [MASS/VOLU ME] IN SERUM OR PLASMA 1.6 1.6 - 2.6 08/23 Specimen Type: PLASMA Comment: Elevated triglycerid e result from a non-fasting specimen should be interpreted with caution. A fasting panel is recommended for accurate triglycerid es when trigs are >200 from a non-fasting specimen. Ordering Provider: TOMMY IQBAL Report Released Date/Time: Aug 23, 2023 02:28 PM Reporting Lab: [facility] [address] Performing Lab: [facility] [address] [place] ([facility]) BASIC METABOLI C PANEL+MG ANION GAP IN SERUM OR PLASMA 11 5 - 15 08/23 Specimen Type: PLASMA Comment: Elevated triglycerid e result from a non-fasting specimen should be interpreted with caution. A fasting panel is recommended for accurate triglycerid es when trigs are >200 from a non-fasting specimen. Ordering Provider: TOMMY IQBAL Report Released Date/Time: Aug 23, 2023 02:28 PM Reporting Lab: [facility] [address] Performing Lab: [facility] [address] [place] ([facility] BASIC METABOLI C PANEL+MG GLOMERULAR FILTRATION RATE/1.73 SQ M.PREDICTE D [VOLUME RATE/AREA] IN SERUM, PLASMA OR BLOOD BY CREATININE -BASED FORMULA (CKD-EPI 2020) >90 60 08/23 Specimen Type: PLASMA Comment: Elevated triglycerid e result from a non-fasting specimen should be interpreted with caution. A fasting panel is recommended for accurate triglycerid es when trigs are >200 from a non-fasting specimen. Ordering Provider: TOMMY IQBAL Report Released Date/Time: Aug 23, 2023 02:28 PM Reporting Lab: [facility] [address] Performing Lab: [facility] [address] [place] ([facility]) METHYLMA LONIC ACID METHYLMALO JACOB [MOLES/VOL UME] IN SERUM OR PLASMA 187 0 - 400 08/02 Specimen Type: SERUM No comment entered. Ordering Provider: SONG NAVAS Report Released Date/Time: Aug 02, 2023 01:46 PM Reporting Lab: [facility] [address] Performing Lab: [facility] [address] [place] [facility] B 12 COBALAMIN (VITAMIN B12) [MASS/VOLU ME] IN SERUM OR PLASMA 717 213 - 816 08/02 Specimen Type: SERUM No comment entered. Ordering Provider: SONG NAVAS Report Released Date/Time: Aug 02, 2023 01:45 PM Reporting Lab: [facility] [address] Performing Lab: [facility] [address] [place] [facility] VALPROIC ACID VALPROATE [MASS/VOLU ME] IN SERUM OR PLASMA 89.8 50.0 - 125.0 08/02 Specimen Type: SERUM No comment entered. Ordering Provider: SONG NAVAS Report Released Date/Time: Aug 02, 2023 01:48 PM Reporting Lab: [facility] [address] Performing Lab: [facility] [address] [place] [facility] ELP/IMMF IX,SERUM PANEL PROTEIN [MASS/VOLU ME] IN SERUM OR PLASMA 6.4 6.0 - 8.3 08/02 Specimen Type: SERUM No comment entered. Ordering Provider: SONG NAVAS Report Released Date/Time: Aug 02, 2023 01:45 PM Reporting Lab: [facility] [address] Performing Lab: [facility] [address] [place] [facility] ELP/IMMF IX,SERUM PANEL ALBUMIN [MASS/VOLU ME] IN SERUM OR PLASMA BY ELECTROPHO RESIS 3.63 3.66 - 4.78 08/02 L Specimen Type: SERUM No comment entered. Ordering Provider: SONG NAVAS Report Released Date/Time: Aug 02, 2023 01:45 PM Reporting Lab: [facility] [address] Performing Lab: [place] [phone] [place] [facility] ELP/IMMF IX,SERUM PANEL ALPHA 1 GLOBULIN [MASS/VOLU ME] IN SERUM OR PLASMA BY ELECTROPHO RESIS 0.37 0.14 - 0.38 08/02 Specimen Type: SERUM No comment entered. Ordering Provider: SONG NAVAS Report Released Date/Time: Aug 02, 2023 01:45 PM Reporting Lab: [facility] [address] Performing Lab: [facility] [address] [place] [facility] ELP/IMMF IX,SERUM PANEL ALPHA 2 GLOBULIN [MASS/VOLU ME] IN SERUM OR PLASMA BY ELECTROPHO RESIS 0.65 0.50 - 0.90 08/02 Specimen Type: SERUM No comment entered. Ordering Provider: SONG NAVAS Report Released Date/Time: Aug 02, 2023 01:45 PM Reporting Lab: [facility] [address] Performing Lab: [facility] [address] [place] [facility] ELP/IMMF IX,SERUM PANEL BETA 1 GLOBULIN [MASS/VOLU ME] IN SERUM OR PLASMA BY ELECTROPHO RESIS 0.51 0.33 - 0.55 08/02 Specimen Type: SERUM No comment entered. Ordering Provider: SONG NAVAS Report Released Date/Time: Aug 02, 2023 01:45 PM Reporting Lab: [facility] [address] Performing Lab: [facility] [address] [place] [facility] ELP/IMMF IX,SERUM PANEL BETA 2 GLOBULIN [MASS/VOLU ME] IN SERUM OR PLASMA BY ELECTROPHO RESIS 0.46 0.20 - 0.52 08/02 Specimen Type: SERUM No comment entered. Ordering Provider: SONG NAVAS Report Released Date/Time: Aug 02, 2023 01:45 PM Reporting Lab: [facility] [address] Performing Lab: [facility] [address] [facility] IS [facility] ELP/IMMF IX,SERUM PANEL GAMMA GLOBULIN [MASS/VOLU ME] IN SERUM OR PLASMA BY ELECTROPHO RESIS 0.79 0.58 - 1.72 08/02 Specimen Type: SERUM No comment entered. Ordering Provider: SONG NAVAS Report Released Date/Time: Aug 02, 2023 01:45 PM Reporting Lab: [facility] [address] Performing Lab: [facility] [address] [facility] ELP/IMMF IX,SERUM PANEL PROTEIN [MASS/VOLU ME] IN SERUM OR PLASMA 6.4 6.0 - 8.3 08/02 Specimen Type: SERUM No comment entered. Ordering Provider: SONG NAVAS Report Released Date/Time: Aug 02, 2023 01:45 PM Reporting Lab: [facility] [address] Performing Lab: [facility] [address] [facility] IS [facility] ELP/IMMF IX,SERUM PANEL IMMUNOELEC TROPHORESI S FOR SERUM OR PLASMA NO MONOCLON ALS DETECTED 08/02 Specimen Type: SERUM No comment entered. Ordering Provider: SONG NAVAS Report Released Date/Time: Aug 02, 2023 01:45 PM Reporting Lab: [facility] [address] Performing Lab: [facility] [address] [facility] Vital Signs Combined list of inpatient and outpatient Vital Signs from Department of Defense and Veterans Affairs, ranging from 12 months to all on record, depending upon the facility. Vital Sign Value Date Comments Source SYSTOLIC BLOOD PRESSURE 154 08/23/2023 14:07:23 [place] ([facility]) DIASTOLIC BLOOD PRESSURE 85 08/23/2023 14:07:23 [place] ([facility]) PULSE OXIMETRY 95% 08/23/2023 14:07:23 [place] ([facility]) WEIGHT 240 08/23/2023 14:07:23 [place] ([facility]) BMI 34kg/m2 08/23/2023 14:07:23 [facility] ([facility]) PAIN 0 08/23/2023 14:07:23 [facility] ([facility]) TEMPERATURE 98.2 08/23/2023 14:07:23 [place] ([facility]) PULSE 86 08/23/2023 14:07:23 [facility] ([facility]) RESPIRATION 14 08/23/2023 14:07:23 [place] ([facility]) SYSTOLIC BLOOD PRESSURE 162 05/28/2023 14:03:41 [place] ([facility]) DIASTOLIC BLOOD PRESSURE 99 05/28/2023 14:03:41 [place] ([facility]) PULSE OXIMETRY 97% 05/28/2023 14:03:41 [place] ([facility]) WEIGHT 256 05/28/2023 14:03:41 [facility] ([facility]) BMI 36kg/m2 05/28/2023 14:03:41 [facility] ([facility]) PAIN 5 05/28/2023 14:03:41 [facility] ([facility]) TEMPERATURE 97.5 05/28/2023 14:03:41 [place] ([facility]) PULSE 89 05/28/2023 14:03:41 [facility] ([facility]) RESPIRATION 14 05/28/2023 14:03:41 [place] ([facility]) Encounters Combined list of: 1) Encounters from Department of [facility] Affairs facilities going back up to thelast 18 months. 2) Encounters from the Department of Defense facilities going back up to 280 months. Location Location Details Encounter Type Encounter Number Reason For Visit Attending Provider ADM Date DC Date Status [facility] Outpatient Encounter [id number] 03/23 [facility] [place] [facility] Outpatient Encounter [id number] 07/24 [facility] [place] [facility] Outpatient Encounter [id number] 08/25 [facility] [place] [facility] Outpatient Encounter [id number] 10/20 [facility] [place] ([facility]) Outpatient Encounter [id number] 10/31 [place] ([facility]) [facility] IS [facility] Outpatient Encounter [id number] VIRGINIE ESPINOZA 11/27 [facility] IS [facility] Outpatient Encounter [id number] JACKCANDYJanice Carrasco 11/27 [facility] ([facility]) OFFICE O/P EST LOW 20-29 MIN [id number] Diagnos is: ICD-10- CM F31.30 Bipolar disord, crnt epsd depress , mild or mod severt, unsp
[place] 12/11 [place] ([facility]) [facility] IS [facility] Outpatient Encounter [id number] 12/13 [facility] ([facility]) Outpatient Encounter [id number] 03/13 [place] ([facility]) [place] ([facility]) Outpatient Encounter [id number] 04/04 [place] ([facility]) [facility] IS [facility] Outpatient Encounter [id number] 05/28 [facility] ([facility]) OFFICE O/P EST MOD 30-39 MIN [id number] Diagnos is: ICD-10- CM E11.40 Type 2 diabete s mellitu s with diabeti c neuropa thy, unsp
TOMMY IQBAL 05/28 [place] ([facility]) [facility] IS [facility] Outpatient Encounter [id number] 07/16 [facility] ([facility]) ADMN SARSCOV2 VACC 1 DOSE [id number] Diagnos is: ICD-10- CM E11.40 Type 2 diabete s mellitu s with diabeti c neuropa thy, unsp
JOHAN MILLER 07/30 [place] ([facility]) [place] [facility] OFF/OP CONSLTJ NEW/EST HI 55 [id number] Diagnos is: ICD-10- CM R25.1 Tremor, unspeci fied
ROSAURA NAVAS 08/02 [place] [facility]) OFFICE O/P EST MOD 30 MIN [id number] Diagnos is: ICD-10- CM L98.9 Disorde r of the skin and subcuta neous tissue, unspeci fied
TOMMY IQBAL 08/23 [place] ([facility]) Social History Combined list of available smoking, tobacco, and other social history from Department of Defense and Veterans Affairs facilities. Social History Type Response Date Comment [facility] e Tobacco smoking status [facility] VA-TOBACCO USER EVERY DAY 05/28/2023 [facility] ([facility]) History of tobacco use MO-TOBACCO USE 30 YEARS OR MORE 05/28/2023 [place] ([facility]) History of tobacco use MO-TOBACCO USE CO UNSEL YES 04/05/2020 [place] ([facility]) History of tobacco use INPT TOBACCO COUNSELING 08/05/2017 [facility] History of tobacco use INPT TOBACCO COUNSELING 08/03/2017 [facility] History of tobacco use INPT TOBACCO COUNSELING 07/27/2017 [facility] History of tobacco use FORMER TOBACCO US ER 7Y OR GREATER 09/14/2016 [place] ([facility]) History of tobacco use FORMER TOBACCO US ER 7Y OR GREATER 11/29/2015 [place] ([facility]) History of tobacco use FORMER TOBACCO US ER 7Y OR GREATER 11/20/2014 [place] ([facility]) History of tobacco use LIFETIME NON-TOBACCO USER 4 [facility] History of tobacco use FORMER TOBACCO US E >1Y <7Y 07/07/2013 [place] ([facility]) History of tobacco use FORMER TOBACCO US E >1Y <7Y 07/18/2012 [place] ([facility]) History of tobacco use FORMER TOBACCO US E >1Y <7Y 09/26/2011 [place] ([facility]) History of tobacco use FORMER TOBACCO US E >1Y <7Y 12/23/2010 [place] ([facility]) History of tobacco use FORMER TOBACCO US E >1Y <7Y 02/09/2010 [place] ([facility]) History of tobacco use FORMER TOBACCO USE <1Y 05/06/2009 [place] ([facility]) History of tobacco use CURRENT TOBACCO USER 07/03/2008 [place] ([facility]) History of tobacco use PATIENT IS TOBACCO USER 04/20/2008 [facility] History of tobacco use FORMER TOBACCO USE <1Y 09/20/2007 [place] ([facility]) History of tobacco use FORMER TOBACCO USE <1Y 12/04/2006 [place] ([facility]) History of tobacco use CURRENT TOBACCO USER 08/30/2002 [facility] History of tobacco use CURRENT TOBACCO USER 08/05/2002 [facility] Plan of Care List of future care activities from [facility] facilities. Additional future care activities may be listed in the Assessment and Plan section. Date/Time Care Activity Care Activity Detail Facili ty 10/04/2023 AMBULATORY - REHAB MEDICINE AMBULATORY - REHAB MEDICINE [facility] Advance Directives List of completed, amended, or rescinded Advance Directives on record at [facility] facilities. An actual copy of the Directive is not included. Date Advance Directive Provider Source 12/24/2003 ADVANCE DIRECTIVE ANTONIO OLVERA [place] ([facility]) 08/26/2002 ADVANCE DIRECTIVE DILLON SILVA [facility]
--- OUTSIDE RECORDS SUMMARY | 2023-09-05 12:26 | XMS_ITS | Encounter Summary ---
Author Name [employer] of Veter[facility] [employer] Organization [facility] Address [address] [place] [address] Support Name Relationship Address Phone AMBER GEORGE Next of Kin [phone] [facility] [address] [place], [place] [address] MIGUEL GEORGE Emergency Contact [address] [address] [place] AMBER Next of Kin [address] [place] [address] Insurance Providers: All historical and current Section [...] AID (WNR) Jun 13, 2016 MEDICAI D [id number] [phone] STEVEN GEORGE PATIENT MEDICAID (WNR) MEDICAID MEDIC AID (WNR) Aug 13, 2001 MEDICAI D [id number] [phone] STEV[place]OR[place] PATIENT MEDICARE (WNR) MEDICARE (M) PART A Jul 13, 2002 PART A [id number] [phone] STEVEN [place]OR[place] PATIENT MEDICARE (WNR) MEDICARE (M) PART B Jul 13, 2002 PART B [id number] [phone] STEVEN [place]OR[place] PATIENT MEDICARE (WNR) MEDICARE (M) PART A Jul 13, 2002 PART A [id number] STEVEN GEOR[place] PATIENT MEDICARE (WNR) MEDICARE (M) PART B Jul 13, 2002 PART B [id number] STEVEN GEORGE PATIENT MEDICARE (WNR) MEDICARE (M) PART A Jul 13, 2002 PART A [id number] STEVEN GEOR[place] PATIENT MEDICARE (WNR) MEDICARE (M) PART B Jul 13, 2002 PART B [id number] [phone] STEVEN GEORGE PATIENT Selected Encounter This section includes the information on record at [facility] for the Encounter. Date/Time Encounter Type Encounter Description Reason Pro vider Source Oct 20, 2022 11:45 AM Outpatient Encounter TELEPHONE MH IHE Encounter Template Text not used by [facility] Plan of Treatment: Future Appointments (+ 6 months) and Future Tests (+/- 45 days) The Plan of Treatment section includes future care activities for the patient from all [facility] treatmentfacilities. This section includes future appointments and future orders which are active, pending or scheduled. Future Appointments This section includes appointments that were scheduled to occur 6 months from the date of the Encounter, up to a maximum of 20 appointments. The data comes from all [facility] treatment facilities. Appointment Date/Time Appointment Type Appointme nt Facility Name Oct 31, 2022 02:00 PM AMBULATORY - PSYCHIATRY [facility] ([facility]) December 11, 2022 01:30 PM AMBULATORY - [...] and tobacco- related health factors from the [facility] facility where the Encounter took place. Current Smoking Status This section includes the most current smoking, or tobacco-related health factor, from the [facility] facility where the Encounter took place. Date/Time Current Smoking Status Comment Alice ity Aug 05, 2017 02:25 PM INPT TOBACCO COUNSELING [facility] Tobacco Use History This section includes a history of the smoking, or tobacco-related health factors, that were collected on or before the date of the Encounter. The data comes from the [facility] facility where the Encounter took place. Date/Time Smoking Status/Tobacco Use Comment F acility Aug 05, 2017 02:25 PM INPT TOBACCO USER Jamia PIMENTEL [facility] Aug 03, 2017 03:37 PM INPT TOBACCO COUNSELING [facility] Aug 03, 2017 03:37 PM INPT TOBACCO USER M MARGARITO [facility] Jul 27, 2017 08:25 PM INPT TOBACCO COUNSELING [facility] Jul 27, 2017 08:25 PM INPT TOBACCO USER M MARGARITO [facility] Nov 11, 2013 11:21 AM LIFETIME NON-TOBACCO USER [facility] Apr 20, 2008 09:01 PM PATIENT ADVISED TO QUIT TOBACCO [facility] Apr 20, 2008 09:01 PM PATIENT IS TOBACCO USER [facility] Apr 20, 2008 09:01 PM PATIENT REFERRED F OR TOBACCO CESSATION [facility] Apr 20, 2008 09:01 PM PATIENT WILLING TO QUIT TOBACCO [facility] Advance Directives: All historical and current Section Date Range: From patient's date of to the date document was created. This section includes ALL of a patient's completed or amended [facility] Advance and Rescinded Directives. The entries below indicate that a directive exists for the patient, but an actual copy is not included with this document. The data comes from all [facility] facilities. Date Advance Directives Provider Source December 24, 2003 ADVANCE DIRECTIVE ANTONIO OLVERA ([facility]) Aug 26, 2002 ADVANCE DIRECTIVE DILLON SILVA [facility] Encounter Notes: All associated encounter notes This section contains the clinical notes associated to the Encounter. Date/Time Encounter Note(s) Provider Source Oct 20, 2022 11:45 AM TELEHEALTH NOTE: LOCAL TITLE: TELEHEALTH TECHNOLOGY SCREENING (TTS) STANDARD TITLE: TELEHEALTH NOTE DATE OF NOTE: OCT 20, 2022@11:45 ENTRY DATE: OCT 20, 2022@11:46:04 AUTHOR: SAMREEN SCOTT EXP COSIGNER: URGENCY: STATUS: COMPLETED TELEHEALTH TECHNOLOGY SCREENING (TTS) Has ADDENDA [place] unable to do [facility] (VVC) at this time. Unable to complete screen. Voice message left requesting back at: [phone] /es/ SAMREEN SCOTT HEALTH ASSISTANT CLINICAL DIRECTOR, TCT Signed: 10/20/2022 11:47 10/30/2022 ADDENDUM STATUS: COMPLETED The VIS 23 Telehealth Support Team attempted to contact [place] to offer a VVC test call in preparation for upcoming [facility] video visit. Unable to reach [place]. A voice message was left requesting a call back at . /es/ SUSIE Toscano [facility] [employer]ellite Project Site Monitor Telehealth Signed: 10/30/2022 09:09 SAMREEN SCOTT ([facility])
--- OUTSIDE RECORDS SUMMARY | 2023-09-05 12:27 | XMS_ITS | Encounter Summary ---
Author Name Department of Vetera Affairs Organization Department of Vetera Affairs Address [address] [place] [address] Support Name Relationship Address Phone AMBER GEORGE Next of Kin [address] [facility] [address] [place], [place] [id number] MIGUEL GEORGE Emergency Contact [address] [address] [place] AMBER Next of Kin [address] [place] [address] Insurance Providers: All historical and current Section [...] AID (WNR) Jun 13, 2016 MEDICAI D [id number] [phone] STEVEN GEORGE PATIENT MEDICAID (WNR) MEDICAID MEDIC AID (WNR) Aug 13, 2001 MEDICAI D [id number] [phone] STEVEN GEORGE PATIENT MEDICARE (WNR) MEDICARE (M) PART A Jul 13, 2002 PART A [id number] STEVEN GEORGE PATIENT MEDICARE (WNR) MEDICARE (M) PART B Jul 13, 2002 PART B [id number] STEVEN GEORGE PATIENT MEDICARE (WNR) MEDICARE (M) PART B Jul 13, 2002 PART B [id number] STEVEN GEORGE PATIENT MEDICARE (WNR) MEDICARE (M) PART A Jul 13, 2002 PART A [id number] STEVEN GEORGE PATIENT MEDICARE (WNR) MEDICARE (M) PART A Jul 13, 2002 PART A [id number] STEVEN GEORGE PATIENT MEDICARE (WNR) MEDICARE (M) PART B Jul 13, 2002 PART B [id number] STEVEN GEORGE PATIENT Selected Encounter This section includes the information on record at [place] for the Encounter. Date/Time Encounter Type Encounter Description Reason Provider Source Nov 27, 2022 07:36 AM Outpatient Encounter TELEPHONE TRIAGE SALVADOR ESPINOZA Encounter Template Text not used by [facility] Plan of Treatment: Future Appointments (+ 6 months) and Future Tests (+/- 45 days) The Plan of Treatment section includes future care activities for the patient from all [place] treatmentfacilities. This section includes future appointments and future orders which are active, pending or scheduled. Future Appointments This section includes appointments that were scheduled to occur 6 months from the date of the Encounter, up to a maximum of 20 appointments. The data comes from all [place] treatment facilities. Appointment Date/Time Appointment Type Appointme nt Facility Name December 11, 2022 01:30 PM AMBULATORY - [facility]CHIATRY [facility] ([facility]) Mar 13, 2023 01:00 PM AMBULATORY - [facility]IAT[facility] ([facility]) Apr 04, 2023 01:30 PM AMBULATORY - [facility]ATRY [facility] ([facility]) May 28, 2023 02:00 PM AMBULATORY - MEDICINE [facility] ([facility]) Social History: Smoking Status (Most current) and Tobacco Use (All prior to encounter date) This section includes the most current, and the historical, smoking and tobacco- related health factors from the [place] facility where the Encounter took place. Current Smoking Status This section includes the most current smoking, or tobacco-related health factor, from the [place] facility where the Encounter took place. Date/Time Current Smoking Status Comment Alice barkley Aug 05, 2017 02:25 PM INPT TOBACCO COUNSELING [facility] Tobacco Use History This section includes a history of the smoking, or tobacco-related health factors, that were collected on or before the date of the Encounter. The data comes from the [place] facility where the Encounter took place. Date/Time Smoking Status/Tobacco Use Comment F jess Aug 05, 2017 02:25 PM INPT TOBACCO USER Jamia PIMENTEL [facility] Aug 03, 2017 03:37 PM INPT TOBACCO COUNSELING [facility] Aug 03, 2017 03:37 PM INPT TOBACCO USER M MARGARITO [facility] Jul 27, 2017 08:25 PM INPT TOBACCO COUNSELING [facility] Jul 27, 2017 08:25 PM INPT TOBACCO USER M MARGARITO [facility] Nov 11, 2013 11:21 AM LIFETIME NON-TOBACCO USER [facility] Apr 20, 2008 09:01 PM PATIENT ADVISED TO QUIT TOBACCO [facility] Apr 20, 2008 09:01 PM PATIENT IS TOBACCO USER [facility] Apr 20, 2008 09:01 PM PATIENT REFERRED F OR TOBACCO CESSATION [facility] Apr 20, 2008 09:01 PM PATIENT WILLING TO QUIT TOBACCO [facility] Advance Directives: All historical and current Section Date Range: From patient's date of to the date document was created. This section includes ALL of a patient's completed or amended [place] Advance and Rescinded Directives. The entries below indicate that a directive exists for the patient, but an actual copy is not included with this document. The data comes from all [place] facilities. Date Advance Directives Provider Source December 24, 2003 ADVANCE DIRECTIVE ANTONIO LOVERA ([facility]) Aug 26, 2002 ADVANCE DIRECTIVE DILLON SILVA Sofia [facility] Encounter Notes: All associated encounter notes This section contains the clinical notes associated to the Encounter. Date/Time Encounter Note(s) Provider Source Nov 27, 2022 07:37 AM REPORT OF CONTACT: LOCAL TITLE: SCREENING COVID CONTACT CENTER NOTE STANDARD TITLE: REPORT OF CONTACT DATE OF NOTE: NOV 27, 2022@07:37 ENTRY DATE: NOV 27, 2022@07:38:16 AUTHOR: PING DUARTE EXP COSIGNER: URGENCY: STATUS: COMPLETED Coronavirus Disease 2019 (COVID-19) Screen The patient was asked if in the last 14 days they have had new onset of any COVID-19 symptoms. They report the following: No symptoms Within the past 14 days, the patient reports no exposure to someone with a febrile/respiratory illness or someone with a known or suspected case of COVID-19 (within 6 feet for > 15 minutes). Result: Screen is negative. /karrie/ PING DUARTE [id number] [facility] Signed: 11/27/2022 07:40 [facility]OC [facility]HNE [facility]
--- OUTSIDE RECORDS SUMMARY | 2023-09-05 12:28 | XMS_ITS | Encounter Summary ---
Author Name Department of Vetera ns Affairs Organization Department of Vetera ns Affairs Address [address] [place] [address] Support Name Relationship Address Phone AMBER GEORGE Next of Kin [address] [facility] [address] [place] [address] MIGUEL GEORGE Emergency Contact [address] [phone] AMBER MCCLOUD Next of Kin [address] [place] [address] Insurance Providers: All historical and current Section [...] AID (WNR) Jun 13, 2016 MEDICAI D [id number] [phone] STEVEN GEORGE PATIENT MEDICAID (WNR) MEDICAID MEDIC AID (WNR) Aug 13, 2001 MEDICAI D [id number] [phone] STEVEN GEORGE PATIENT MEDICARE (WNR) MEDICARE (M) PART A Jul 13, 2002 PART A [id number] STEVEN GEORGE PATIENT MEDICARE (WNR) MEDICARE (M) PART B Jul 13, 2002 PART B [id number] [phone] STEVEN GEORGE PATIENT MEDICARE (WNR) MEDICARE (M) PART A Jul 13, 2002 PART A [id number] STEVEN GEORGE PATIENT MEDICARE (WNR) MEDICARE (M) PART B Jul 13, 2002 PART B [id number] STEVEN GEORGE PATIENT MEDICARE (WNR) MEDICARE (M) PART A Jul 13, 2002 PART A [id number] STEVEN GEORGE PATIENT MEDICARE (WNR) MEDICARE (M) PART B Jul 13, 2002 PART B [id number] STEVEN GEORGE PATIENT Selected Encounter This section includes the information on record at [place] for the Encounter. Date/Time Encounter Type Encounter Description Reason Provider Source December 11, 2022 01:30 PM OFFICE O/P EST LOW 20-29 [facility] - IND ICD-10-CM F31.30 Bipolar disord, crnt epsd depress, mild or mod severt, JAYDON Branch [place] Encounter Template Text not used by [facility] Assessments - Encounter Diagnoses This section includes the primary and secondary diagnoses documented for the Encounter. Date/Time Primary/Secondary Diagnosis Diagnosis Name Provider Source December 13, 2022 10:36 AM PRIMARY Bipolar disord, crnt epsd depress, mild or mod severt, JAYDON Branch ([facility]) Plan of Treatment: Future Appointments (+ 6 [...] Date/Time Appointment Type Appointme nt Facility Name Mar 13, 2023 01:00 PM AMBULATORY - [...] Apr 05, 2020 11:00 AM VA-TOBACCO USE TOE PULLER YES [facility] ([facility]) Tobacco Use History This section includes a history of the smoking, or tobacco-related health factors, that were collected on or before the date of the Encounter. The data comes from the [place] facility where the Encounter took place. Date/Time Smoking Status/Tobacco Use Comment F acility Apr 05, 2020 11:00 AM VA-TOBACCO USE ADVICE [facility] ([facility]) Apr 05, 2020 11:00 AM VA-TOBACCO USE TOE PULLER YES [facility] ([facility]) Apr 05, 2020 11:00 AM VA-TOBACCO USE MED YES [facility] ([facility]) Apr 05, 2020 11:00 AM VA-TOBACCO USE WI 30 MIN OF WAKE UP [facility] ([facility]) Apr 05, 2020 11:00 AM VA-TOBACCO USER EVERY DAY [facility] ([facility]) Sep 14, 2016 01:52 PM FORMER [...] 03:00 PM FORMER TOBACCO USE >1Y <7Y [facility] ([facility]) Feb 09, 2010 10:49 AM FORMER TOBACCO USE >1Y <7Y [facility] ([facility] May 06, 2009 11:15 AM FORMER TOBACCO USE <1Y [facility] ([facility]) Jul 03, 2008 02:47 PM CURRENT TOBACCO USER [facility] ([facility]) Apr 20, 2008 09:01 PM PATIENT ADVISED TO QUIT TOBACCO [facility] Apr 20, 2008 09:01 PM PATIENT IS TOBACCO USER [facility] Apr 20, 2008 09:01 PM PATIENT REFERRED F OR TOBACCO CESSATION [facility] Apr 20, 2008 09:01 PM PATIENT WILLING TO QUIT TOBACCO [facility] Sep 20, 2007 01:28 PM FORMER TOBACCO USE <1Y [facility] ([facility]) Dec 04, 2006 11:00 AM FORMER TOBACCO USE <1Y [facility] ([facility]) Advance Directives: All historical and current [...] December 24, 2003 ADVANCE DIRECTIVE ANTONIO OLVERA ([facility]) Aug 26, 2002 ADVANCE DIRECTIVE DILLON SILVA [facility] Encounter Notes: All associated encounter notes This section contains the clinical notes associated to the Encounter. Date/Time Encounter Note(s) Provider Source December 11, 2022 04:39 PM SUICIDE PREVENTION RISK ASSESSMENT SCREENING NOTE: LOCAL TITLE: [place] SCREENING NOTE STANDARD TITLE: SUICIDE PREVENTION RISK ASSESSMENT SCREENING NOT DATE OF NOTE: DECEMBER 11, 2022@16:39 ENTRY DATE: DECEMBER 13, 2022@10:40:21 AUTHOR: TYLER LAND EXP COSIGNER: URGENCY: STATUS: COMPLETED C-SSRS Screening [place] Suicide Severity Rating Scale (C-SSRS) screener 1. Over the past month, have you wished you were or wished you could go to sleep and not wake up? Yes 2. Over the past month, have you had any actual thoughts of killing yourself? No 3. Over the past month, have you been thinking about how you might do this? Response not required due to responses to other questions. 4. Over the past month, have you had these thoughts and had some intention of acting on them? Response not required due to responses to other questions. 5. Over the past month, have you started to work out or worked out the details of how to kill yourself? Response not required due to responses to other questions. 6. If yes, at any time in the past month did you intend to carry out this plan? Response not required due to responses to other questions. 7. In your lifetime, have you ever done anything, started to do anything, or prepared to do anything to end your life (for example, collected pills, obtained a gun, gave away valuables, went to the roof but didn't jump)? Yes 8. If YES, was this within the past 3 months? No /karrie/ TYLER LAND NURSE PRACTITIONER Signed: 12/13/2022 10:43 TYLER LAND ([facility]) December 11, 2022 12:52 PM PSYCHIATRY E & M N OTE: LOCAL TITLE: PSYCHIATRIC EVALUATION & MANAGEMENT STANDARD TITLE: PSYCHIATRY E & M NOTE DATE OF NOTE: DECEMBER 11, 2022@12:52 ENTRY DATE: DECEMBER 11, 2022@12:52:27 AUTHOR: TYLER LAND EXP COSIGNER: URGENCY: STATUS: COMPLETED MEDICATION MANAGEMENT visit. Chart reviewed for most recent medical/psychiatric notes. IDENTIFICATION: 72 yr old DWM here for follow up for Bipolar Disorder and medical co- morbidities. He has a past hx of polysubstance abuse. INTERVAL HISTORY: He is still at Assisted living in [place] - getting care from [facility] right now. States its mikey there Thjey give him his meds and food so that is good. Admits it's getting harder to get around and needs his wheelchair most of the time. He is still on - medical cannibis and he is on morphine Now he is also on hospice for COPD - and he states he is fine with it...he had actually lived longer than he thought he would. He has not interest in quitting smoking. He states the medical cannibis - helps the pain and the anxiety His duagdejuaner Theresa is very helpful to him. Rosalie (his other daughter) called him and is going to [facility] He has lost all his siblings He lost his friend Quentin Painter from [place] SYMPTOM REVIEW: Mood: states, my mood is ok Suicidal ideation: denies ideation, intent, plan Self-injurious behavior: denies, none noted Homicidal/Violent ideation: denies ideation, intent, plan Sleeping: reported as the usual/poor Appetite: reported as intact, weight stable Eating disordered Behavior: none Energy Level: reported as low, states he sleeps alot Concentration: reported as good/non-impaired Memory: reported as good/intact/non-impaired Cognition: grossly intact Perceptual Abnormalities: no auditory, visual, sensory hallucinations or delusions of paranoia, persecution, or grandiosity. Insight: good Judgement: good DX: Active problems - Computerized Problem List is the source for the followin. Hypertension (SNOMED CT 34189133) 2. Chronic low back pain 3. Cervical spondylosis with myelopathy - S/P C2-7 decompression with C5-7 fusion in 1999 4. Hypothyroidism 5. Diabetic neuropathy (SNOMED CT 336885957) 6. Sleep apnea 7. Hyperlipidemia (SNOMED CT 88007605) 8. Edema - acute lower extremity bilateral - multifactorial 9. 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 Chest Pain * 12. Anemia - GI work up ordered at [facility] 07/2012 13. Alcohol dependence (SNOMED CT 05771164) 14. Histrionic personality disorder (SNOMED CT 62161013) 15. Bipolar affective disorder, currently depressed, moderate Vital Signs: Temperature: 98.4 F [36.9 C] (08/24/2017 14:33) Pulse: 75 (05/02/2018 12:13) Respirations: 18 (08/24/2017 14:33) Blood Pressure: 118/67 (05/02/2018 12:13) BMI: 41.0 WT: MEDICATION RECONCILIATION: At this visit I have reviewed the medication list, discussed relevant medications, and communicated updated patient medication list with the patient. MENTAL STATUS EXAM: Patient was alert and oriented x3 Behavior: calm, pleasant Speech: normal in rate, rhythm and tone Mood: euthymic Affect: congruent Thought process: linear and goal directed Thought content: without preoccupations, obsessions, or delusions Perceptions: without disturbances Insight: good Judgement:good as observed through behavior& responses during the interview Cognition/Memory: intact Suicidality: denies ideation, intent or plan Homicidality: denies ideation, intent or plan ASSESSMENT AND TREATMENT PLAN: currently stable, bright, joking, denies SI/HI. I explained I cannot do therapy with him ( but we do have therapists that I can refer him too if needed) and someone else is prescribing his psychotropics so he really doesn't need to see me anymore - He states he is ok with this and he can see why - although states he likes to talk things out with me. In the interest of likely shortened lifespan, I agreed to call him in 3 mos to check in. CURRENT SUBSTANCE USE: Alcohol/Illicit Drug Use: drinks (binges episodically), uses regular cannabis gummies Tobacco Use: smokes Caffeine: minimal/moderate RISK ASSESSMENT: Risk Factors: gender,impulsivity, psych and MARY hx Protective Factors: children, lives in asssited living and is closely monitored, has a hx of no shows, has positive coping skills and very capable of reaching out. Clinician Judgment of Risk: low acute/low chronic Problems Treated This Encounter (DSM-5): #1 BPI #2 Breathing-related sleep disorder, untreated #3 Alcohol dependence, within normal limits now #4 r/o PTSD 1.MEDICATIONS no meds prescribed by check writer salesperson 2. LABS: none 3. RETURN TO CLINIC: - does not need to return to clinic 4. THERAPY RECCOMENDATIONS: Supportive/prn 5. CONSULTS: TIME SPENT TOTAL : _50 min TIME SPENT WITH THERAPY: _45 min____ INFORMED CONSENT: The patient is able to understand the risks and benefits of the medications as explained. The patient verbally agrees to take the medications as prescribed and to inform me or other physicians if there are side effects and to seek emergency medical care if serious side effects develop such as an allergic reaction, chest pain, or difficulty breathing. MEDICATION EDUCATION ABOUT SIDE EFFECTS - the patient has been informed of the side effects of his medication, including the possibility of sexual side effects. Patient advised to inform prescriber if changes in sexual desire or function are noticed. potential side effects. Patient verbalizes understanding. Educated pt. on the availability of MH services 05/03 through the [facility] emergency dept, the [facility] at and the Suicide Prevention Hotline at 5 832-093-FJJN. /karrie/ TYLER LAND NURSE PRACTITIONER Signed: 12/13/2022 10:36 TYLER LAND ([facility])
--- OUTSIDE RECORDS SUMMARY | 2023-09-05 12:28 | XMS_ITS | Encounter Summary ---
Author Name Department of Vetera Affairs Organization Department of [facility] [place] Affairs Address [address] [place] [address] Support Name Relationship Address Phone AMBER GEORGE Next of Kin [address] [facility] [address] [place], [place] [id number] MIGUEL GEORGE Emergency Contact [address] [address] HAOALEXANDRA AMBER Next of Kin [address] [place] [address] Insurance Providers: All historical and current Section [...] AID (WNR) Jun 13, 2016 MEDICAI D [id number] STEVEN GEORGE PATIENT MEDICAID (WNR) MEDICAID MEDIC AID (WNR) Aug 13, 2001 MEDICAI D [id number] STEVEN GEORGE PATIENT MEDICARE (WNR) MEDICARE (M) PART A Jul 13, 2002 PART A [id number] STEVEN GEORGE PATIENT MEDICARE (WNR) MEDICARE (M) PART B Jul 13, 2002 PART B [id number] STEVEN GEORGE PATIENT MEDICARE (WNR) MEDICARE (M) PART A Jul 13, 2002 PART A [id number] STEVEN GEORGE PATIENT MEDICARE (WNR) MEDICARE (M) PART B Jul 13, 2002 PART B [id number] STEVEN GEORGE PATIENT MEDICARE (WNR) MEDICARE (M) PART A Jul 13, 2002 PART A [id number] STEVEN GEORGE PATIENT MEDICARE (WNR) MEDICARE (M) PART B Jul 13, 2002 PART B [id number] STEVEN GEORGE PATIENT Selected Encounter This section includes the information on record at [place] for the Encounter. Date/Time Encounter Type Encounter Description Reason Provider Source Nov 27, 2022 07:50 AM Outpatient Encounter TELEPHONE TRIAGE SANGEETA SANTIAGO [facility] Encounter Template Text not used by [place] Plan of Treatment: Future Appointments (+ 6 months) and Future Tests (+/- 45 days) The Plan of Treatment section includes future care activities for the patient from all [place] treatmentfacilities. This section includes future appointments and future orders which are active, pending or scheduled. Future Appointments This section includes appointments that were scheduled to occur 6 months from the date of the Encounter, up to a maximum of 20 appointments. The data comes from all [place] treatment facilities. Appointment Date/Time Appointment Type Appointme [...] and tobacco- related health factors from the [place] facility where the Encounter took place. Current Smoking Status This section includes the most current smoking, or tobacco-related health factor, from the [place] facility where the Encounter took place. Date/Time Current Smoking Status Comment Alice garrisony Aug 05, 2017 02:25 PM INPT TOBACCO COUNSELING [facility] Tobacco Use History This section includes a history of the smoking, or tobacco-related health factors, that were collected on or before the date of the Encounter. The data comes from the [place] facility where the Encounter took place. Date/Time Smoking Status/Tobacco Use Comment F acnadya Aug 05, 2017 02:25 PM INPT TOBACCO USER Jamia PIMENTEL [facility] Aug 03, 2017 03:37 PM INPT TOBACCO COUNSELING [facility] Aug 03, 2017 03:37 PM INPT TOBACCO USER M MARGARITO [facility] Jul 27, 2017 08:25 PM INPT TOBACCO COUNSELING [facility] Jul 27, 2017 08:25 PM INPT TOBACCO USER M MARGARITO [facility] Nov 11, 2013 11:21 AM LIFETIME NON-TOBACCO USER [facility] Apr 20, 2008 09:01 PM PATIENT ADVISED TO QUIT TOBACCO [facility] Apr 20, 2008 09:01 PM PATIENT IS TOBACCO USER [facility] Apr 20, 2008 09:01 PM PATIENT REFERRED F OR TOBACCO CESSATION [facility] Apr 20, 2008 09:01 PM PATIENT WILLING TO QUIT TOBACCO [facility] Advance Directives: All historical and current Section Date Range: From patient's date of to the date document was created. This section includes ALL of a patient's completed or amended [place] Advance and Rescinded Directives. The entries below indicate that a directive exists for the patient, but an actual copy is not included with this document. The data comes from all [place] facilities. Date Advance Directives Provider Source December 24, 2003 ADVANCE DIRECTIVE ANTONIO OLVERA ([facility]) Aug 26, 2002 ADVANCE DIRECTIVE DILLON SILVA [facility] Encounter Notes: All associated encounter notes This section contains the clinical notes associated to the Encounter. Date/Time Encounter Note(s) Provider Source Nov 27, 2022 07:50 AM RN PROGRESS NOTE: LOCAL TITLE: CCC: CLINICAL TRIAGE STANDARD TITLE: RN PROGRESS NOTE DATE OF NOTE: NOV 27, 2022@07:50:03 ENTRY DATE: NOV 27, 2022@07:50:03 AUTHOR: SANGEETA SANTIAGO COSIGNER: URGENCY: STATUS: COMPLETED Patient Demographics Patient Name: STEVEN GEORGE Patient Primary [address]: [address] [place] [id number] Patient Primary Phone: [phone] Patient : 1950 Patient Age: 72 SSN: [id number] Caller/Recipient Relation to Patient: Self Emergency Contact: MIGUEL GEORGE Triage Summary Nurse Summary: VISN 23 TRIAGE NURSE NOTE PATIENT CONCERN/DURATION/ONSET: calls with concerns of SOB and intermittent CP that started last night. states, ''I am currently on hospice for emphysema and HF. My SOB increased last night. I used my nebulizer machine about an hour ago and I feel my SOB got worse. I feel my SOB is severe. I have been having moderate to severe intermittent CP. The pain feels different. My HR has been ranging between 70-110.'' states he does feel like he is struggling to breathe. [place] states he also has felt dizzy/lightheaded, nauseated, diaphoresis, and has been experiencing edema in his LE and in one hand. WHAT HAS THE PATIENT TRIED TO TREAT THE SYMPTOMS: did use his nebulizer this morning and feels his SOB got worse after using the nebulizer. HISTORY/PREVIOUS TREATMENT: CHF, CP, Repots hx of emphysema and being on hospice WHAT IS PATIENT GOAL FOR THE CALL: Evaluation DID YOU CONSIDER USING CCC LIP (TELE or VVC): No, per [facility] DISPOSITION: Triage nurse recommendation is evaluation at nearest ER and to contact his home hospice aide because of severity of symptoms. agrees to calling his home hospice aide. ER/admission reporting number provided to /family member. Advised patient to call back immediately/seek emergency care if any of the signs or symptoms noted above worsen. Best contact for is (Verified). (Caller could accurately summarize the agreed upon plan of care as discussed in the education log portion of this note.) This note was created by a [address] case coordinator. Please do not alert this nurse by adding as a signer for future communications. Alerts are not monitored by this user, if needed please email . Conducted triage/discussed symptoms Utilized the Triage Tool: Yes Chief Complaint: Shortness Of Breath System WHEN: , 1 Nurse's Recommendation / WHEN: Now System WHERE: Emergency department Nurse's Recommendation / WHERE: ED Other Covid Screening Screen is negative Patient Disposition Patient/Caregiver agrees to plan of care: Yes Other - Patient Where Disposition: states he will call his home hospice aide Patient is Urgent or Emergent Summary of Actions Referred patient to emergency services Instructed to go to Emergency Department Advised of Financial Disclaimer: Patient advised that recommendation for care provided during the call does not constitute an approval or authorization for payment by the [place] or its staff. Patient advised to report a community ED visit to [facility] Office [facility] Community Care at within 72 hours. Clinical Contact Center Codes Clinic/Location: [address] PHONE CCC RN TXCC Triage Complete Triage Note: Phone Triage 27 Nov 2022 12:35:15 +0000 [facility] Demographics 72 y/o Male Results CC: Shortness Of Breath Software suggested: , Software suggested follow-up location: Emergency department Values and Measures Duration of CC: 1 Days Alerts 1) This is a HIGHER COMPLEXITY patient. Positive Responses HPI: dyspnea, severe HPI: dyspnea, struggling to breathe HPI: O2 sat is 4 or more percentage points lower than baseline HPI: wheezing, new or worsening HPI: wheezing, within past hour PMH: COPD Negative Responses Denies: HPI: O2 sat is 6 or more percentage points lower than baseline Education Verbal Education Provided for: Breathing Difficulty Home Care Education Log Home Care WebVerbal Home care for breathing difficulty includes: Stop smoking. Avoid exposure to secondary smoke. Avoid strenuous exercise. Eat a low salt diet. Drink plenty of liquids. Take prescription medications as directed. Medications You will feel better if you take your prescribed medication as directed by your provider. Your symptoms will be better controlled if you don't skip doses. Refill your medications at least two weeks before your prescription runs out. Talk with your provider if you are worried about medication side effects. Notify your provider if you have breathing difficulty and any of the following: Chest pain Choking Coughing blood Leg swelling Palpitations Sudden onset of difficulty breathing Worsening cough Worsening difficulty breathing Worsening fever Swelling in one leg Severe difficulty breathing: Rib retractions Nasal flaring Use of accessory muscles ?? [id number] [employer] /es/ SANGEETA SANTIAGO RN VISN 23 DAYTIME ONCOLOGY NURSE Signed: 11/27/2022 07:50 SANGEETA SANTIAGO [facility]
--- OUTSIDE RECORDS SUMMARY | 2023-09-05 12:28 | XMS_ITS | Encounter Summary ---
Author Name Department of Vetera ns Affairs Organization Department of Vetera ns Affairs Address [address] [place] [address] Support Name Relationship Address Phone ARIELAMBER Next of Kin [address] [facility] [address] [place] [address] MIGUEL GEORGE Emergency Contact [address] [address] AMBER MCCLOUD Next of Kin [address] [place] [place] [address] Insurance Providers: All historical and current Section [...] AID (WNR) Jun 13, 2016 MEDICAI D [id number] [phone] STEVEN GEORGE PATIENT MEDICAID (WNR) MEDICAID MEDIC AID (WNR) Aug 13, 2001 MEDICAI D [id number] STEVEN GEORGE PATIENT MEDICARE (WNR) MEDICARE (M) PART A Jul 13, 2002 PART A [id number] [phone] STEVEN GEORGE PATIENT MEDICARE (WNR) MEDICARE (M) PART A Jul 13, 2002 PART A [id number] STEVEN GEORGE PATIENT MEDICARE (WNR) MEDICARE (M) PART B Jul 13, 2002 PART B [id number] STEVEN GEORGE PATIENT MEDICARE (WNR) MEDICARE (M) PART B Jul 13, 2002 PART B [id number] STEVEN EGORGE PATIENT MEDICARE (WNR) MEDICARE (M) PART A Jul 13, 2002 PART A [id number] STEVEN GEORGE PATIENT MEDICARE (WNR) MEDICARE (M) PART B Jul 13, 2002 PART B [id number] STEVEN GEORGE PATIENT Selected Encounter This section includes the information on record at [place] for the Encounter. Date/Time Encounter Type Encounter Description Reason Pro vider Source December 13, 2022 12:55 PM Outpatient Encounter [facility] Encounter Template Text not used by [place] Plan of Treatment: Future Appointments (+ 6 months) and Future Tests (+/- 45 days) The Plan of Treatment section includes future care activities for the [facility] [place] [facility] This section includes future appointments and future orders which are active, pending or scheduled. Future Appointments This section includes appointments that were scheduled to occur 6 months from the date of the Encounter, up to a maximum of 20 appointments. The data comes from all [place] treatment facilities. Appointment Date/Time Appointment Type Appointme [...] and tobacco- related health factors from the [place] facility where the Encounter took place. Current Smoking Status This section includes the most current smoking, or tobacco-related health factor, from the [place] facility where the Encounter took place. Date/Time Current Smoking Status Comment Alice barkley Aug 05, 2017 02:25 PM INPT TOBACCO COUNSELING [facility] Tobacco Use History This section includes a history of the smoking, or tobacco-related health factors, that were collected on or before the date of the Encounter. The data comes from the [place] facility where the Encounter took place. Date/Time Smoking Status/Tobacco Use Comment F acility Aug 05, 2017 02:25 PM INPT TOBACCO USER M MARGARITO [facility] Aug 03, 2017 03:37 PM INPT TOBACCO COUNSELING [facility] Aug 03, 2017 03:37 PM INPT TOBACCO USER Jamia PIMENTEL [facility] Jul 27, 2017 08:25 PM INPT TOBACCO COUNSELING [facility] Jul 27, 2017 08:25 PM INPT TOBACCO USER M MARGARITO [facility] Nov 11, 2013 11:21 AM LIFETIME NON-TOBACCO USER [facility] Apr 20, 2008 09:01 PM PATIENT ADVISED TO QUIT TOBACCO [facility] Apr 20, 2008 09:01 PM PATIENT IS TOBACCO USER [facility] Apr 20, 2008 09:01 PM PATIENT REFERRED F OR TOBACCO CESSATION [facility] Apr 20, 2008 09:01 PM PATIENT WILLING TO QUIT TOBACCO [facility] Advance Directives: All historical and current Section Date Range: From patient's date of to the date document was created. This section includes ALL of a patient's completed or amended [place] Advance and Rescinded Directives. The entries below indicate that a directive exists for the patient, but an actual copy is not included with this document. The data comes from all [place] facilities. Date Advance Directives Provider Source December 24, 2003 ADVANCE DIRECTIVE ANTONIO OLVERA ([facility]) Aug 26, 2002 ADVANCE DIRECTIVE DILLON SILVA [facility] Encounter Notes: All associated encounter notes This section contains the clinical notes associated to the Encounter. Date/Time Encounter Note(s) Provider Source December 13, 2022 12:55 PM REPORT OF CONTACT: LOCAL TITLE: APPOINTMENT SCHEDULING NOTE STANDARD TITLE: REPORT OF CONTACT DATE OF NOTE: DECEMBER 13, 2022@12:55 ENTRY DATE: DECEMBER 13, 2022@12:55:49 AUTHOR: CHALINO CASTORENA COSIGNER: URGENCY: STATUS: COMPLETED APPOINTMENT SCHEDULING NOTE Has ADDENDA Attempted to schedule Return to clinic (RTC) Contact attempt made to 1st attempt Telephone call to [facility] to call back to [phone] 2nd attempt Letter- no contact letter sent to at address on file. Return to [facility] on or around ( Mar 13, 2023 ) for a total of 1 appointment(s) 30 - phone only! /karrie/ CHALINO CASTORENA Signed: 12/13/2022 12:57 12/14/2022 ADDENDUM STATUS: COMPLETED Attempted to schedule Return to clinic (RTC) Contact attempt made to [place] 2nd phone attempt Telephone call to - lm vmail to call back to [phone] /karrie/ CHALINO CASTORENA Signed: 12/14/2022 12:33 12/15/2022 ADDENDUM STATUS: COMPLETED Attempted to schedule Return to clinic (RTC) Contact attempt made to [place] 3rd phone attempt Telephone call to - vmail to call back to [phone] /karrie/ CHALINO CASTORENA Signed: 12/15/2022 09:39 CHALINO CASTORENA ([facility])
--- OUTSIDE RECORDS SUMMARY | 2023-09-05 12:29 | XMS_ITS | Encounter Summary ---
Author Name Department of Vetera ns Affairs Organization Department of Vetera ns Affairs Address [address] [facility] [place] [address] Support Name Relationship Address Phone AMBER GEORGE Next of Kin [address] [facility] [address] [facility] [address] MIGUEL GEORGE Emergency Contact [address] [address] HAOKARRIE AMBER Next of Kin [address] [facility] [place] [address] Insurance Providers: All historical and current Section [...] AID (WNR) Jun 13, 2016 MEDICAI D [id number] STEVEN GEORGE PATIENT MEDICAID (WNR) MEDICAID MEDIC AID (WNR) Aug 13, 2001 MEDICAI D [id number] STEVEN GEORGE PATIENT MEDICARE (WNR) MEDICARE (M) PART A Jul 13, 2002 PART A [id number] STEVEN GEORGE PATIENT MEDICARE (WNR) MEDICARE (M) PART A Jul 13, 2002 PART A [id number] STEVEN GEORGE PATIENT MEDICARE (WNR) MEDICARE (M) PART B Jul 13, 2002 PART B [id number] STEVEN GEORGE PATIENT MEDICARE (WNR) MEDICARE (M) PART B Jul 13, 2002 PART B [id number] STEVEN GEORGE PATIENT MEDICARE (WNR) MEDICARE (M) PART A Jul 13, 2002 PART A [id number] STEVEN GEORGE PATIENT MEDICARE (WNR) MEDICARE (M) PART B Jul 13, 2002 PART B [id number] STEVEN GEORGE PATIENT Selected Encounter This section includes the information on record at [place] for the Encounter. Date/Time Encounter Type Encounter Description Reason Pro vider Source Apr 04, 2023 01:30 PM Outpatient Encounter TELEPHONE [facility] Encounter Template Text not used by [place] Plan of Treatment: Future Appointments (+ 6 months) and Future Tests (+/- 45 days) The Plan of Treatment section includes future care activities for the patient from [facility] [place] [facility]. This section includes future appointments and future orders which are active, pending or scheduled. Future Appointments This section includes appointments that were scheduled to occur 6 months from the date of the Encounter, up to a maximum of 20 appointments. The data comes from all [place] treatment facilities. Appointment Date/Time Appointment Type Appointme nt Facility Name May 28, 2023 02:00 PM AMBULATORY - MEDICINE [facility] ([facility]) Jul 30, 2023 01:15 PM [facility]ULATORY - [facility]ICINE [facility] Aug 02, 2023 01:00 PM [facility] Aug 23, 2023 02:00 PM [facility] Oct 04, 2023 02:00 [facility] Social History: Smoking Status (Most current) and Tobacco Use (All prior to encounter date) This section includes the most current, and the historical, smoking and tobacco- related health factors from the [place] facility where the Encounter took place. Current Smoking Status This section includes the most current smoking, or tobacco-related health factor, from the [place] facility where the Encounter took place. Date/Time Current Smoking Status Comment Alice barkley Apr 05, 2020 11:00 AM VA-TOBACCO USE CLINICAL SUPPORT TECH HEIKE GARZA ([facility]) Tobacco Use History This section includes a history of the smoking, or tobacco-related health factors, that were collected on or before the date of the Encounter. The data comes from the [place] facility where the Encounter took place. Date/Time Smoking Status/Tobacco Use Comment F lesility Apr 05, 2020 11:00 AM VA-TOBACCO USE ADVICE [facility] ([facility]) Apr 05, 2020 11:00 AM VA-TOBACCO USE CLINICAL SUPPORT TECH YES [facility] ([facility]) Apr 05, 2020 11:00 AM VA-TOBACCO USE MED YES [facility] ([facility]) Apr 05, 2020 11:00 AM VA-TOBACCO USE WI 30 MIN OF WAKE UP [facility] ([facility]) Apr 05, 2020 11:00 AM VA-TOBACCO USER EVERY DAY [facility] ([facility]) Sep 14, 2016 01:52 PM FORMER TOBACCO USER 7Y OR GREATE R [facility] ([facility]) Nov 29, 2015 01:04 PM FORMER TOBACCO USER 7Y OR GREATE R [facility]REG ([facility]) Nov 20, 2014 12:05 PM FORMER TOBACCO USER 7Y OR GREATE R [facility]REG ([facility]) Jul 07, 2013 10:54 AM FORMER TOBACCO USE >1Y <7Y [facility] ([facility]) Jul 18, 2012 01:08 PM FORMER TOBACCO USE >1Y <7Y [facility] ([facility]) Sep 26, 2011 01:22 PM FORMER TOBACCO USE >1Y <7Y [facility] ([facility]) December 23, 2010 03:00 PM FORMER TOBACCO USE >1Y <7Y [facility] ([facility]) Feb 09, 2010 10:49 AM FORMER TOBACCO USE >1Y <7Y [facility] ([facility]) May 06, 2009 11:15 AM FORMER TOBACCO USE <1Y [facility] ([facility]) Jul 03, 2008 02:47 PM CURRENT TOBACCO USER [facility] ([facility]) Apr 20, 2008 09:01 PM PATIENT ADVISED TO QUIT TOBACCO [facility] Apr 20, 2008 09:01 PM PATIENT IS TOBACCO USER [facility] Apr 20, 2008 09:01 PM PATIENT REFERRED F OR TOBACCO CESSATION [facility] Apr 20, 2008 09:01 PM PATIENT WILLING TO QUIT TOBACCO [facility] Sep 20, 2007 01:28 PM FORMER TOBACCO USE <1Y [facility] ([facility]) Dec 04, 2006 11:00 AM FORMER TOBACCO USE <1Y [facility] ([facility]) Advance Directives: All historical and current Section Date Range: From patient's date of to the date document was created. This section includes ALL of a patient's completed or amended [place] Advance and Rescinded Directives. The entries below indicate that a directive exists for the patient, but an actual copy is not included with this document. The data comes from all [place] facilities. Date Advance Directives Provider Source December 24, 2003 ADVANCE DIRECTIVE ANTONIO OLVERA ([facility]) Aug 26, 2002 ADVANCE DIRECTIVE DILLON SILVA [facility] Sofia [facility] Encounter Notes: All associated encounter notes This section contains the clinical notes associated to the Encounter. Date/Time Encounter Note(s) Provider Source Apr 20, 2023 03:49 PM ADDENDUM: LOCAL TITLE: Addendum STANDARD TITLE: ADDENDUM DATE OF NOTE: APR 20, 2023@15:49:18 ENTRY DATE: APR 20, 2023@15:49:19 AUTHOR: TYLER LAND EXP COSIGNER: URGENCY: STATUS: COMPLETED please no show appt /es/ TYLER LAND NURSE PRACTITIONER Signed: 04/20/2023 15:49 Receipt Acknowledged By: 04/23/2023 09:42 /karrie/ SAMREEN SCOTT [facility], TCT 04/23/2023 10:30 /karrie/ CHALINO CASTORENA --- Original Document --- 04/05/23 NO SHOW NOTE: Patient did not appear for scheduled appointment. Risk Factors: gender, age, psych dx Protective Factors: lives in [place], motivated for care, very resourceful, postive coping skills, very good support Clinician Judgment of Risk: low acute/low chronic Plan Based on Clinician Judgment of Risk: Lincoln did not answer phone call but did call in - states soemthing is wrong with his phone. No follow up is needed. 3 no shows in a row last appt with him was 07/13/2021 . He does not need medication management as he has this in [facility] or from his primary care. I left him a message that he needs to speak with cab starter to determine what hsi needs are. I have nto been prescribing for him and do not see a need for medication management. /karrie/ TYLER LAND NURSE PRACTITIONER Signed: 04/05/2023 10:27 Receipt Acknowledged By: 04/05/2023 12:29 /es/ CHALINO CASTORENA 04/06/2023 12:11 /karrie/ SAMREEN SCOTT [facility], TCT TYLER LAND ([facility]) Apr 05, 2023 10:25 AM NO SHOW NOTE: LOCAL TITLE: MH NO SHOW NOTE STANDARD TITLE: NO SHOW NOTE DATE OF NOTE: APR 05, 2023@10:25 ENTRY DATE: APR 05, 2023@10:25:36 AUTHOR: TYLER LAND EXP COSIGNER: URGENCY: STATUS: COMPLETED NO SHOW NOTE Has ADDENDA Patient did not appear for scheduled appointment. Risk Factors: gender, age, psych dx Protective Factors: lives in [place], motivated for care, very resourceful, postive coping skills, very good support Clinician Judgment of Risk: low acute/low chronic Plan Based on Clinician Judgment of Risk: did not answer phone call but did call in - states soemthing is wrong with his phone. No follow up is needed. 3 no shows in a row last appt with him was 07/13/2021 . He does not need medication management as he has this in [facility] or from his primary care. I left him a message that he needs to speak with cab starter to determine what hsi needs are. I have nto been prescribing for him and do not see a need for medication management. /karrie/ TYLER LAND NURSE PRACTITIONER Signed: 04/05/2023 10:27 Receipt Acknowledged By: 04/05/2023 12:29 /suzanne CASTORENA 04/06/2023 12:11 /karrie/ SAMREEN [facility]OTT [facility] INST[facility]ER, [facility] 04/20/2023 ADDENDUM STATUS: COMPLETED please no show appt /karrie/ TYLER LAND NURSE PRACTITIONER Signed: 04/20/2023 15:49 Receipt Acknowledged By: * AWAITING SIGNATURE * SAMREEN SCOTT * AWAITING SIGNATURE * CHALINO CASTORENA KATHRYN M [place] ([facility])
--- OUTSIDE RECORDS SUMMARY | 2023-09-05 12:29 | XMS_ITS | Encounter Summary ---
Author Name Department of Vetera ns Affairs Organization Department of Vetera [facility] Affairs Address [address], [place] [address] Support Name Relationship Address Phone AMBER GEORGE Next of Kin [address] [facility] [address] [place] [address] MIGUEL GEORGE Emergency Contact [address] [address] [place] AMBER Next of Kin [address] [facility] [place] [address] Insurance Providers: All historical and current Section [...] AID (WNR) Jun 13, 2016 MEDICAI D [id number] [phone] STEVEN GEORGE PATIENT MEDICAID (WNR) MEDICAID MEDIC AID (WNR) Aug 13, 2001 MEDICAI D [id number] [phone] STEVEN GEORGE PATIENT MEDICARE (WNR) MEDICARE (M) PART A Jul 13, 2002 PART A [id number] [phone] STEVEN GEORGE PATIENT MEDICARE (WNR) MEDICARE (M) PART B Jul 13, 2002 PART B [id number] STEVEN GEORGE PATIENT MEDICARE (WNR) MEDICARE (M) PART A Jul 13, 2002 PART A [id number] STEVEN GEORGE PATIENT MEDICARE (WNR) MEDICARE (M) PART B Jul 13, 2002 PART B [id number] STEVEN GEORGE PATIENT MEDICARE (WNR) MEDICARE (M) PART A Jul 13, 2002 PART A [id number] STEVEN GEORGE PATIENT MEDICARE (WNR) MEDICARE (M) PART B Jul 13, 2002 PART B [id number] STEVEN GEORGE PATIENT Selected Encounter This section includes the information on record at [facility] for the Encounter. Date/Time Encounter Type Encounter Description Reason Pro vider Source Mar 13, 2023 01:00 PM Outpatient Encounter TELEPHONE MH IHE Encounter Template Text not used by ME Plan of Treatment: Future Appointments (+ 6 months) and Future Tests (+/- 45 days) The Plan of Treatment section includes future care activities for the patient from all [facility] treatmentfacilities. This section includes future appointments and future orders which are active, pending or scheduled. Future Appointments This section includes appointments that were scheduled to occur 6 months from the date of the Encounter, up to a maximum of 20 appointments. The data comes from all ME treatment facilities. Appointment Date/Time Appointment Type Appointme nt Facility Name Apr 04, 2023 01:30 PM AMBULATORY - PSYCHIATRY [facility] ([facility]) May 28, 2023 02:00 PM AMBULATORY - MEDICINE [facility] ([facility]) Jul 30, 2023 01:15 PM AMBULATORY - MEDICINE [facility] ([facility]) Aug 02, 2023 01:00 [facility] Aug 23, 2023 02:00 PM [facility] - MEDICINE [facility] ([facility]) Social History: Smoking Status (Most current) and Tobacco Use (All prior to encounter date) This section includes the most current, and the historical, smoking and tobacco- related health factors from the ME facility where the Encounter took place. Current Smoking Status This section includes the most current smoking, or tobacco-related health factor, from the ME facility where the Encounter took place. 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 The data comes from the ME facility where the Encounter took place. Date/Time Smoking Status/Tobacco Use Comment F acility Apr 05, 2020 11:00 AM VA-TOBACCO USE ADVICE [facility] ([facility]) Apr 05, 2020 11:00 AM VA-TOBACCO USE DIETETICS PROFESSOR YES [facility] ([facility]) Apr 05, 2020 11:00 AM VA-TOBACCO USE MED YES [facility] ([facility]) Apr 05, 2020 11:00 AM VA-TOBACCO USE WI 30 MIN OF WAKE UP [facility] ([facility]) Apr 05, 2020 11:00 AM VA-TOBACCO USER EVERY DAY [facility] ([facility]) Sep 14, 2016 01:52 PM FORMER TOBACCO USER 7Y OR GREATE R [facility] ([facility]) Nov 29, 2015 01:04 PM FORMER TOBACCO USER 7Y OR GREATE R [facility] ([facility]) Nov 20, 2014 12:05 PM FORMER TOBACCO USER 7Y OR GREATE R [facility] ([facility]) Jul 07, 2013 10:54 AM FORMER TOBACCO USE >1Y <7Y [facility] ([facility]) Jul 18, 2012 01:08 PM FORMER TOBACCO USE >1Y <7Y [facility] ([facility]) Sep 26, 2011 01:22 PM FORMER TOBACCO USE >1Y <7Y [facility] ([facility]) December 23, 2010 03:00 PM FORMER TOBACCO USE >1Y <7Y [facility] ([facility]) Feb 09, 2010 10:49 AM FORMER TOBACCO USE >1Y <7Y [facility] ([facility]) May 06, 2009 11:15 AM FORMER TOBACCO USE <1Y [facility] ([facility]) Jul 03, 2008 02:47 PM CURRENT TOBACCO USER [facility] ([facility]) Apr 20, 2008 09:01 PM PATIENT ADVISED TO QUIT TOBACCO [facility] Apr 20, 2008 09:01 PM PATIENT IS TOBACCO USER [facility] Apr 20, 2008 09:01 PM PATIENT REFERRED F OR TOBACCO CESSATION [facility] Apr 20, 2008 09:01 PM PATIENT WILLING TO QUIT TOBACCO [facility] Sep 20, 2007 01:28 PM FORMER TOBACCO USE <1Y [facility] ([facility]) Dec 04, 2006 11:00 AM FORMER TOBACCO USE <1Y [facility] ([facility]) Advance Directives: All historical and current Section Date Range: From patient's date of to the date document was created. This section includes ALL of a patient's completed or amended [facility] Advance and Rescinded Directives. The entries below indicate that a directive exists for the patient, but an actual copy is not included with this document. The data comes from all [facility] facilities. Date Advance Directives Provider Source December 24, 2003 ADVANCE DIRECTIVE ANTONIO OLVERA ([facility]) Aug 26, 2002 ADVANCE DIRECTIVE DILLON SILVA [facility] Encounter Notes: All associated encounter notes This section contains the clinical notes associated to the Encounter. Date/Time Encounter Note(s) Provider Source Mar 13, 2023 05:52 PM NO SHOW NOTE: LOCAL TITLE: NO SHOW NOTE STANDARD TITLE: NO SHOW NOTE DATE OF NOTE: MAR 13, 2023@17:52 ENTRY DATE: MAR 13, 2023@17:53:08 AUTHOR: TYLER LAND EXP COSIGNER: URGENCY: STATUS: COMPLETED Patient did not appear for scheduled appointment. Risk Factors: gender, age, psych dx Protective Factors: lives in [place], motivated for care, very resourceful, postive coping skills, very good support Clinician Judgment of Risk: low acute/low chronic Plan Based on Clinician Judgment of Risk: [place] did not answer phone call. No follow up is needed. 2 no shows in a row last appt with him was 07/13/2021 . He does not need medication management as he has this in [place]. /es/ TYLER LAND NURSE PRACTITIONER Signed: 03/13/2023 17:54 Receipt Acknowledged By: 03/14/2023 08:52 /es/ CHIDI Harper [facility] Staff Nurse 03/14/2023 11:11 /karrie/ TYLER MASON ([facility])
--- OUTSIDE RECORDS SUMMARY | 2023-09-05 12:30 | XMS_ITS | Encounter Summary ---
Author Name Department of Vetera Affairs Organization Department of Vetera Affairs Address [address], [place] [address] Support Name Relationship Address Phone ARIELAMBER Next of Kin [address] [facility] [address] [facility] [place] [address] MIGUEL GEORGE Emergency Contact [address] [address] AMBER MCCLOUD Next of Kin [address] [place] [address] Insurance Providers: All historical and current Section [...] AID (WNR) Jun 13, 2016 MEDICAI D [id number] [phone] STEVEN GEORGE PATIENT MEDICAID (WNR) MEDICAID MEDIC AID (WNR) Aug 13, 2001 MEDICAI D [id number] [phone] STEVEN GEORGE PATIENT MEDICARE (WNR) MEDICARE (M) PART B Jul 13, 2002 PART B [id number] STEVEN GEORGE PATIENT MEDICARE (WNR) MEDICARE (M) PART A Jul 13, 2002 PART A [id number] [phone] STEVEN GEORGE PATIENT MEDICARE (WNR) MEDICARE (M) PART A Jul 13, 2002 PART A [id number] STEVEN GEORGE PATIENT MEDICARE (WNR) MEDICARE (M) PART B Jul 13, 2002 PART B [id number] STEVEN GEORGE PATIENT MEDICARE (WNR) MEDICARE (M) PART A Jul 13, 2002 PART A [id number] [phone] STEVEN GEORGE PATIENT MEDICARE (WNR) MEDICARE (M) PART B Jul 13, 2002 PART B [id number] [phone] STEVEN GEORGE PATIENT Selected Encounter This section includes the information on record at [facility] for the Encounter. Date/Time Encounter Type Encounter Description Reason Pro vider Source May 28, 2023 12:00 AM Outpatient Encounter EVENT (HISTORICAL) IHE Encounter Template Text not used by [facility] Plan of Treatment: Future Appointments (+ 6 months) and Future Tests (+/- 45 days) The Plan of Treatment section includes future care activities for the patient [facility]. This section includes future appointments and future orders which are active, pending or scheduled. Future Appointments This section includes appointments that were scheduled to occur 6 months from the date of the Encounter, up to a maximum of 20 appointments. The data comes from all [facility] treatment facilities. Appointment Date/Time Appointment Type Appointme nt Facility Name Jul 30, 2023 01:15 PM AMBULATORY - MEDICINE [facility] ([facility]) Aug 02, 2023 01:00 PM AMBULATORY - RE[facility] Aug 23, 2023 02:00 PM AMBULATORY - MEDICINE [facility] ([facility]) Oct 04, 2023 02:00 [facility] Nov 22, 2023 02:00 PM AM[facility]ULATORY - MEDICINE [facility] ([facility]) Social History: Smoking Status (Most current) and Tobacco Use (All prior to encounter date) This section includes the most current, and the historical, smoking and tobacco- related health factors from the [facility] facility where the Encounter took place. Current Smoking Status This section includes the most current smoking, or tobacco-related health factor, from the [facility] facility where the Encounter took place. Date/Time Current Smoking Status Comment Alice barkley Aug 05, 2017 02:25 PM INPT TOBACCO COUNSELING [facility] Tobacco Use History This section includes a history of the smoking, or tobacco-related health factors, that were collected on or before the date of the Encounter. The data comes from the [facility] facility where the Encounter took place. Date/Time Smoking Status/Tobacco Use Comment F acility Aug 05, 2017 02:25 PM INPT TOBACCO USER Jamia PIMENTEL [facility] Aug 03, 2017 03:37 PM INPT TOBACCO COUNSELING [facility] Aug 03, 2017 03:37 PM INPT TOBACCO USER M MARGARITO [facility] Jul 27, 2017 08:25 PM INPT TOBACCO COUNSELING [facility] Jul 27, 2017 08:25 PM INPT TOBACCO USER Jamia PIMENTEL [facility] Nov 11, 2013 11:21 AM LIFETIME NON-TOBACCO USER [facility] Apr 20, 2008 09:01 PM PATIENT ADVISED TO QUIT TOBACCO [facility] Apr 20, 2008 09:01 PM PATIENT IS TOBACCO USER [facility] Apr 20, 2008 09:01 PM PATIENT REFERRED F OR TOBACCO CESSATION [facility] Apr 20, 2008 09:01 PM PATIENT WILLING TO QUIT TOBACCO [facility] Advance Directives: All historical and current Section Date Range: From patient's date of to the date document was created. This section includes ALL of a patient's completed or amended [facility] Advance and Rescinded Directives. The entries below indicate that a directive exists for the patient, but an actual copy is not included with this document. The data comes from all [facility] facilities. Date Advance Directives Provider Source December 24, 2003 ADVANCE DIRECTIVE ANTONIO OLVERA ([facility]) Aug 26, 2002 ADVANCE DIRECTIVE DILLON SILVA [facility]
--- OUTSIDE RECORDS SUMMARY | 2023-09-05 12:30 | XMS_ITS | Encounter Summary ---
Author Name [facility] of [facility]a [facility] Organization [facility] Address [address] [place] [address] Support Name Relationship Address Phone AMBER GEORGE Next of Kin [address] [facility] A PT 4 [facility] [place] [address] MIGUEL GEORGE Emergency Contact [address] [phone] AMBER MCCLOUD Next of Kin [address] [facility] [place] [address] Insurance Providers: All historical and current Section [...] AID (WNR) Jun 13, 2016 MEDICAI D [id number] [phone] STEVEN GEORGE PATIENT MEDICAID (WNR) MEDICAID MEDIC AID (WNR) Aug 13, 2001 MEDICAI D [id number] [phone] STEVEN GEORGE PATIENT MEDICARE (WNR) MEDICARE (M) PART A Jul 13, 2002 PART A [id number] [phone] STEVEN GEORGE PATIENT MEDICARE (WNR) MEDICARE (M) PART A Jul 13, 2002 PART A [id number] STEVEN GEORGE PATIENT MEDICARE (WNR) MEDICARE (M) PART B Jul 13, 2002 PART B [id number] STEVEN GEORGE PATIENT MEDICARE (WNR) MEDICARE (M) PART B Jul 13, 2002 PART B [id number] STEVEN GEORGE PATIENT MEDICARE (WNR) MEDICARE (M) PART A Jul 13, 2002 PART A [id number] [phone] STEVEN GEORGE PATIENT MEDICARE (WNR) MEDICARE (M) PART B Jul 13, 2002 PART B [id number] STEVEN GEORGE PATIENT Selected Encounter This section includes the information on record at [place] for the Encounter. Date/Time Encounter Type Encounter Description Reason Provider Source May 28, 2023 02:00 PM OFFICE O/P EST MOD 30-39 MIN PRIMARY CARE/MEDICINE ICD-10-CM E11.40 Type 2 diabetes mellitus with diabetic neuropathy, unsp JUAQUIN RADER [facility] Encounter Template Text not used by [place] Assessments - Encounter Diagnoses This section includes the primary and secondary diagnoses documented for the Encounter. 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 JUAQUIN RADER [facility]) May 28, 2023 03:40 PM SECONDARY Contact with and exposure to other hazardous substances JUAQUIN RADER [facility]) May 28, 2023 03:40 PM SECONDARY Encounter for immunization [place] ([facility]) May 28, 2023 03:40 PM SECONDARY Essential (primary) hypertension JUAQUIN RADER [facility]) May 28, 2023 03:40 PM SECONDARY Hyperlipidemia, unspecified JUAQUIN RADER [place] ([facility]) May 28, 2023 03:40 PM SECONDARY Hypothyroidism, unspecified JUAQUIN RADER [facility]) May 28, 2023 03:40 PM SECONDARY Sleep apnea, unspecified JUAQUIN RADER [place] ([facility]) May 28, 2023 03:40 PM SECONDARY 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 This section includes future appointments and future orders which are active, pending or scheduled. Future Appointments This section includes appointments that were scheduled to occur 6 months from the date of the Encounter, up to a maximum of 20 appointments. The data comes from all [place] treatment facilities. Appointment Date/Time Appointment Type Appointme nt Facility Name Jul 30, 2023 01:15 PM AMBULATORY - MEDICINE [facility] ([facility]) Aug 02, 2023 01:00 PM AMBULATORY - REHAB MEDICIN E [facility] Aug 23, 2023 02:00 PM AMBULATORY - MEDICINE [facility] ([facility]) Oct 04, 2023 02:00 PM AMBULATORY - REHAB MEDICIN E [facility] Nov 22, 2023 02:00 PM AMBULATORY - MEDICINE [facility] ([facility]) Vital Signs: All taken on the encounter date This section contains inpatient and outpatient Vital Signs collected on the date of the Encounter. Date/Time Temperature Pulse Blood Pressure Respiratory Rate SP02 Pain Height Weight Body Mass Index Source May 28, 2023 02:03 PM 97.5 F 89 /min 162/99 mm[Hg] 14 /min 97 % 5 256 lb 36 [facility] ([facility]) Immunizations: All administered on the encounter date This section contains immunizations associated to the Encounter. Immunization Series Date Issued Reaction Comments INFLUENZA, HIGH-DOSE, QUADRIVALENT May 28, 2023 ZOSTER RECOMBINANT 1 May 28, 2023 7s27 9 Social History: Smoking Status (Most current) and Tobacco Use (All prior to encounter date) This section includes the most current, and the historical, smoking and tobacco- related health factors from the [place] facility where the Encounter took place. Current Smoking Status This section includes the most current smoking, or tobacco-related health factor, from the [place] facility where the Encounter took place. Date/Time Current Smoking Status Comment Alice ity May 28, 2023 02:00 PM VA-TOBACCO USER EVERY DAY [place] ([facility]) Tobacco Use History This section includes a history of the smoking, or tobacco-related health factors, that were collected on or before the date of the Encounter. The data comes from the [place] facility where the Encounter took place. Date/Time Smoking Status/Tobacco Use Comment F acility May 28, 2023 02:00 PM VA-TOBACCO USE 30 YEARS OR MORE [place] ([facility]) May 28, 2023 02:00 PM VA-TOBACCO USE ADVICE [place] ([facility]) May 28, 2023 02:00 PM VA-TOBACCO USE BEAD WRAPPER NO [place] ([facility]) May 28, 2023 02:00 PM VA-TOBACCO USE MED NO [place] ([facility]) May 28, 2023 02:00 PM VA-TOBACCO USER EVERY DAY [place] ([facility]) Apr 05, 2020 11:00 AM VA-TOBACCO USE 30 YEARS OR MORE [place] ([facility]) Apr 05, 2020 11:00 AM VA-TOBACCO USE ADVICE [place] ([facility]) Apr 05, 2020 11:00 AM VA-TOBACCO USE BEAD WRAPPER YES [place] ([facility]) Apr 05, 2020 11:00 AM VA-TOBACCO USE MED YES [place] ([facility]) Apr 05, 2020 11:00 AM VA-TOBACCO USE [place] 30 MIN OF WAKE UP [place] ([facility]) Apr 05, 2020 11:00 AM VA-TOBACCO USER EVERY DAY [place] ([facility]) Sep 14, 2016 01:52 PM FORMER TOBACCO USER 7Y OR GREATE R [facility] ([facility]) Nov 29, 2015 01:04 PM FORMER TOBACCO USER 7Y OR GREATE R [facility] ([facility]) Nov 20, 2014 12:05 PM FORMER TOBACCO USER 7Y OR GREATE R [facility] ([facility]) Jul 07, 2013 10:54 AM FORMER TOBACCO USE >1Y <7Y [place] ([facility]) Jul 18, 2012 01:08 PM FORMER TOBACCO USE >1Y <7Y [facility] ([facility]) Sep 26, 2011 01:22 PM FORMER TOBACCO USE >1Y <7Y [facility] ([facility]) December 23, 2010 03:00 PM FORMER TOBACCO USE >1Y <7Y [facility] ([facility]) Feb 09, 2010 10:49 AM FORMER TOBACCO USE >1Y <7Y [place] ([facility]) May 06, 2009 11:15 AM FORMER TOBACCO USE <1Y [place] ([facility]) Jul 03, 2008 02:47 PM CURRENT TOBACCO USER [place] ([facility]) Apr 20, 2008 09:01 PM PATIENT ADVISED TO QUIT TOBACCO [facility] Apr 20, 2008 09:01 PM PATIENT IS TOBACCO USER [facility] Apr 20, 2008 09:01 PM PATIENT REFERRED F OR TOBACCO CESSATION [facility] Apr 20, 2008 09:01 PM PATIENT WILLING TO QUIT TOBACCO [facility] Sep 20, 2007 01:28 PM FORMER TOBACCO USE <1Y [facility] ([facility]) Dec 04, 2006 11:00 AM FORMER TOBACCO USE <1Y [facility] ([facility]) Advance Directives: All historical and current Section Date Range: From patient's date of to the date document was created. This section includes ALL of a patient's completed or amended [place] Advance and Rescinded Directives. The entries below indicate that a directive exists for the patient, but an actual copy is not included with this document. The data comes from all [place] facilities. Date Advance Directives Provider Source December 24, 2003 ADVANCE DIRECTIVE ANTONIO OLVERA ([facility]) Aug 26, 2002 ADVANCE DIRECTIVE [facility] Encounter Notes: All associated encounter notes This section contains the clinical notes associated to the Encounter. Date/Time Encounter Note(s) Provider Source Jul 23, 2023 03:56 PM ADDENDUM: LOCAL TITLE: Addendum STANDARD TITLE: ADDENDUM DATE OF NOTE: JUL 23, 2023@15:56:06 ENTRY DATE: JUL 23, 2023@15:56:07 AUTHOR: IRINEO BRASWELL EXP COSIGNER: URGENCY: STATUS: COMPLETED Alerting PACT that Neurology consult #[id number] has been forwarded to [place] [facility] for the following reason: FORWARDED FROM 07/23/23 15:54 JUAQUIN RADER [facility]-NEUR[facility] Patient does not meet drive time for Neurology cares via either consult toolbox or [employer]. This bond underwriter does not have authority to approve CC consult for this specialty care in this circumstance. Consult thus forwarded to [place] [facility]. Request PACT advise pt of same. /suzanne BRASWELL MD STAFF PHYSICIAN Signed: 07/23/2023 15:58 Receipt Acknowledged By: 07/23/2023 19:07 /suzanne Rader MD Physician [facility] 07/23/2023 16:16 /karrie/ Kevin Serrano RN [facility] --- Original Document --- 05/28/23 [facility] ANNUAL VISIT: HPI: 72 years old MALE with PMH of listed below presents today to re-establish care. He lives in [facility] assisted living and he is co-managed by Jeanine Escoto NP ([facility]). he has been enrolled in hospice due to severe CHF and COPD he is on morphine as needed for dyspnea and pain His daughter Liz is with him today. Past Medical History: Active problems - Computerized Problem List is the source for the followin. Hypertension (SNOMED CT 08970040) 2. Chronic low back pain 3. Cervical spondylosis with myelopathy - S/P C2-7 decompression with C5-7 fusion in 1999 4. Hypothyroidism 5. Diabetic neuropathy (SNOMED CT 591013796) 6. Sleep apnea 7. Hyperlipidemia (SNOMED CT 43750406) 8. Edema - acute lower extremity bilateral - multifactorial 9. CHF - Congestive heart failure 10. Webb esophagus - [place] egd 01/25/2011 11. Chest Pain * 12. Anemia - GI work up ordered at [place] 07/2012 13. Alcohol dependence (SNOMED CT 45275885) 14. 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 Bipolar affective disorder, currently depressed, moderate Past Surgical and Procedure History: - Appendectomy - 02/15/2012 C2 Cervical laminectomy - 10/30/2007 Circumcision - 03/05/2000Decompressive cervical laminectomy third through seventh cervical. Family History: - Father: Heart disease - Mother: lung cancer Social History: - Smoking history: he is a current smoker - ETOH: history of daily alcohol use. He reports he does not drink anymore - Recreational Drug: none REVIEW OF SYSTEMS: Negative except for issues associated with chronic medical conditions or acute concerns mentioned in this note. Physical Exam: Temp: 97.5 F [36.4 C] (05/28/2023 14:03) Pulse:89 (05/28/2023 14:03) BP: 162/99 (05/28/2023 14:03) Resp: 14 (05/28/2023 14:03) Weight: 256 lb [116.12 kg] (05/28/2023 14:03) Pain: 5 (05/28/2023 14:03) O2 Sat: 97% (05/28/2023 14:03) BMI: 35.8 General: AA, NAD CV: S1, S2, RRR, no m/r/g Lungs: decreased breath sound Abd: soft, NT/ND, +BS, no rebound, no guarding Extrem: no significant edema he is in wheelchair. Assessment/Plan: 1. Uncontrolled DM 2. DM neuropathy - current regimen: Lantus 40 units qhs, no longer on aspart insulin - no longer on pregabalin. 3. Hyperlipidemia - off pravastatin 40mg qhs due to hospice 4. CHF, Chronic atrial fibrilation 5. HTN - he was on coumadin. changed to xarelto in 02/2019, no longer taking - was on Metoprolol Amlodipine Imdur losartan prazosin 10mg qhs spiromolactone - now only on prazosin 10mg qhs and spironolactone 50mg daily 6. Bipolar disorder 7. BPH - off flomax 0.4mg daily - still taking prazosin 10mg qhs 8. COPD - albuterol as needed 9. Unspecified involuntary movements/seizure disorder - continue divalproex 500mg qam and 1000mg qhs 10. Hypothyroidism - off levothyroxine 50mcg daily due to hospice 11. Barretts esophagus/GERD - last EGD 09/27/2017 - on pepcid 12. Hypogonadism - no longer on testosterone cypionate injection 13. Sleep apnea - has CPAP. on oxygen at night 14. Health Care Maintenance - Colon Cancer Screening: has history of colon polyps (tubulovillous adenoma with low grade dysplasia found during a colonoscopy in 2011). last colonoscopy 10/11/2017 - AAA Screenin02/02/2018 CT of abd did not show AAA. - screening test not indicated due to hospice status - shingle vaccine per pt's request RTC in one year plus as needed The above plan has been discussed with him. He voiced understanding of the plan. - Vaccinations: IM - Immunizations Immunization Series Date Facility Reaction Info COVID-19 (MODERNA), MRNA, LNP-S,* 03/23/2022 [facility] [facility] 07/29/2021 [facility] [facility] 2 11/24/2020 [place] Count* 1 10/27/2020 [facility] Count* INFLUENZA (HISTORICAL) [facility]* Renato fernandez* <C> INFLUENZA, HIGH DOSE SEASONAL 05/07/2017 [facility] [facility] 04/13/2016 [facility] 05/21/2014 [facility] 05/13/2014 [facility] 04/21/2013 [facility] [facility] 05/27/2012 [facility] [facility] INFLUENZA, HIGH-DOSE, QUADRIVALEN* 05/23/2021 [facility] [facility] 05/27/2020 [facility] INFLUENZA, INJECTABLE, QUADRIVALE* 05/18/2016 [facility] [facility] 05/26/2015 [facility] [facility] INFLUENZA, SEASONAL, INJECTABLE Comfort ho* Home healt* <C> 05/07/2012 [facility] [facility] 08/11/2005 [facility] [facility] INFLUENZA, SEASONAL, INJECTABLE,* 05/01/2017 [facility] * 05/09/2011 [facility] [facility] INFLUENZA, TRIVALENT, ADJUVANTED 05/13/2019 [facility] [facility] INFLUENZA, UNSPECIFIED FORMULATIO* 05/13/2018 [facility] [facility] 04/18/2013 [place] * [facility] ho* 05/22/2011 Rochetser * <C> 05/19/2010 [place] * [place] 05/22/2008 [place] * 05/22/2008 [place] * 06/14/2007 [place] * 07/25/2006 [place] * NOVEL [id number], ALL FORM* 08/25/2009 [place] * <C> PNEUMOCOCCAL CONJUGATE PCV 13 11/23/2014 [facility] [facility] 11/20/2014 [facility] * <C> PNEUMOCOCCAL POLYSACCHARIDE PPV23 07/19/2017 [facility]* <C> 07/19/2017 [facility] [facility] 02/17/2012 [facility] [facility] 08/11/2005 [facility] [facility] PNEUMOCOCCAL, UNSPECIFIED FORMULA* No Site <C> TD(ADULT) UNSPECIFIED FORMULATION Renato jim* <C> TDAP 03/21/2008 [facility]* <C> 03/21/2008 [facility] [facility] ZOSTER LIVE 05/10/2013 [facility]* <C> 05/10/2012 [facility] [facility] <C> See the Detailed Immunizations Health Summary Component[DIM] for Comments Clinical Reminders: Medication Reconciliation: Education Evaluations *Was medication education provided for NEW medications or CHANGES to medications? (including medication name, dose, route, reason for use, and potential side effects). No new medications or medication changes during this encounter. TERATOGENIC MED & CONTRACEPTION REVIEW (Optional)... === MEDICATION RECONCILIATION === Review Done: The medication list shown below was verified for accuracy and it includes all pending medications/active medications/all medications or discontinued within the last 90 days/all remote medications and non-VA medications. If a given category (i.e. remote meds) is not shown, that means that a patient doesn't have a medication(s) in that category. Allergies listed below were also reviewed/updated for accuracy. Allergies/ADR from [facility] may not display in CPRS. Use JLV MRT5 - Allergies/ADRs FACILITY ALLERGY/ADR -------- [facility] GABAPENTIN [facility] SULFA DRUGS [facility] NO KNOWN ALLERGIES Active and Recently Outpatient Medications (including Supplies): Start Date Active Non-VA Medications Refills Expiration 1) Non-VA ACETAMINOPHEN TAB Si MG ACTIVE MOUTH EVERY 6 HOURS NEEDED 2) Non-VA ALBUTEROL 90MCG (CFC-F) 200D ORAL ACTIVE INHL Si PUFFS INHALATION EVERY 6 HOURS NEEDED 3) Non-VA ALBUTEROL SO4 0.083% INHL 3ML ACTIVE SiML INHALATION EVERY 8 HOURS NEEDED 4) Non-VA DIVALPROEX NA 125MG SPRINKLE CAP ACTIVE SiMG MOUTH TWICE A DAY 5) Non-VA DOCUSATE NA 50MG/SENNOSIDES 8.6MG ACTIVE TAB Si TABLET MOUTH TWICE A DAY NEEDED 6) Non-VA FAMOTIDINE 20MG TAB SiMG ACTIVE MOUTH EVERY DAY 7) Non-VA HALOPERIDOL 1MG TAB SiMG ACTIVE MOUTH EVERY 4 HOURS NEEDED 8) Non-VA HYOSCYAMINE SULFATE 0.125MG TAB ACTIVE Si.125MG MOUTH EVERY 4 HOURS NEEDED 9) Non-VA INSULIN GLARGINE 100UNIT/ML INJ ACTIVE Si UNITS UNDER THE SKIN TWICE A DAY 10) Non-VA KETOCONAZOLE 2% CREAM Sig: THIN ACTIVE LAYER TWICE A DAY NEEDED 11) Non-VA KETOCONAZOLE SHAMPOO Sig: ACTIVE NEEDED 12) Non-VA LORAZEPAM 0.5MG TAB Si.5MG ACTIVE MOUTH EVERY 4 HOURS NEEDED 13) Non-VA MORPHINE TAB,IR Sig: MORPHINE ACTIVE SOLUBE TAB 10MG TWICE A DAY 14) Non-VA MORPHINE TAB,IR Sig: MORPHINE ACTIVE SOLUBE TAB 5MG EVERY 3 HOURS NEEDED 15) Non-VA NITROGLYCERIN 0.4MG SL TAB Sig: ACTIVE 0.4MG UNDER THE TONGUE NEEDED 16) Non-VA ONDANSETRON HCL 4MG TAB SiMG ACTIVE MOUTH EVERY 8 HOURS NEEDED 17) Non-VA PRAZOSIN HCL 5MG CAP SiMG ACTIVE MOUTH AT BEDTIME 18) Non-VA SPIRONOLACTONE 25MG TAB Sig: ACTIVE 50MG MOUTH EVERY DAY AAA Screening: The patient declines to undergo ultrasound to screen for possible abdominal aortic aneurysm. Comment: not indicated. on hospice Follow Up Colonoscopy: Colonoscopy is due based on information available to this reminder. Limited life expectancy <6 months. Screening/surveillance is not clinically indicated. Comment: on hospice Toxic Exposure Screening Follow-Up: Exposure Concern(s): 05/28/2023 [place] Related Exposures - Toxic Exposure Concern Follow-up Question(s): 05/28/2023 No Questions - Toxic Exposure Concern Maxatawny/caregiver has no health or medical concerns related to their concern of environmental exposure. The following connections were provided to the Maxatawny/caregiver: No connections needed at this time Assess Statin Use - Lipids (CVD/DM): The patient has a limited life expectancy and intervention is not likely to be useful. Explain: on hospice /karrie/ Juaquin Rader MD Physician [facility] Signed: 05/28/2023 15:40 07/23/2023 ADDENDUM STATUS: COMPLETED It appears is scheduled with [place] [facility] on 08-02-23. /es/ Kevin Serrano RN [facility] Signed: 07/23/2023 16:18 IRINEO BRASWELL [place] ([facility]) May 28, 2023 02:22 PM H & P NOTE: LOCAL TITLE: [facility] ANNUAL VISIT STANDARD TITLE: H & P NOTE DATE OF NOTE: MAY 28, 2023@14:22 ENTRY DATE: MAY 28, 2023@14:22:11 AUTHOR: JUAQUIN RADER EXP COSIGNER: URGENCY: STATUS: COMPLETED [facility] ANNUAL VISIT Has ADDENDA HPI: 72 years old MALE with PMH of listed below presents today to re-establish care. He lives in [facility] assisted living and he is co-managed by Jeanine Escoto NP ([facility]). he has been enrolled in hospice due to severe CHF and COPD he is on morphine as needed for dyspnea and pain His daughter Liz is with him today. Past Medical History: Active problems - Computerized Problem List is the source for the followin. Hypertension (SNOMED CT 29805931) 2. Chronic low back pain 3. Cervical spondylosis with myelopathy - S/P C2-7 decompression with C5-7 fusion in 1999 4. Hypothyroidism 5. Diabetic neuropathy (SNOMED CT 344235821) 6. Sleep apnea 7. Hyperlipidemia (SNOMED CT 79502456) 8. Edema - acute lower extremity bilateral - multifactorial 9. CHF - Congestive heart failure 10. Webb esophagus - [place] egd 01/25/2011 11. Chest Pain * 12. Anemia - GI work up ordered at [place] 07/2012 13. 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 Bipolar affective disorder, currently depressed, moderate Past Surgical and Procedure History: - Appendectomy - 02/15/2012 C2 Cervical laminectomy - 10/30/2007 Circumcision - 03/05/2000Decompressive cervical laminectomy third through seventh cervical. Family History: - Father: Heart disease - Mother: lung cancer Social History: - Smoking history: he is a current smoker - ETOH: history of daily alcohol use. He reports he does not drink anymore - Recreational Drug: none REVIEW OF SYSTEMS: Negative except for issues associated with chronic medical conditions or acute concerns mentioned in this note. Physical Exam: Temp: 97.5 F [36.4 C] (05/28/2023 14:03) Pulse:89 (05/28/2023 14:03) BP: 162/99 (05/28/2023 14:03) Resp: 14 (05/28/2023 14:03) Weight: 256 lb [116.12 kg] (05/28/2023 14:03) Pain: 5 (05/28/2023 14:03) O2 Sat: 97% (05/28/2023 14:03) BMI: 35.8 General: AA, NAD CV: S1, S2, RRR, no m/r/g Lungs: decreased breath sound Abd: soft, NT/ND, +BS, no rebound, no guarding Extrem: no significant edema he is in wheelchair. Assessment/Plan: 1. Uncontrolled DM 2. DM neuropathy - current regimen: Lantus 40 units qhs, no longer on aspart insulin - no longer on pregabalin. 3. Hyperlipidemia - off pravastatin 40mg qhs due to hospice 4. CHF, Chronic atrial fibrilation 5. HTN - he was on coumadin. changed to xarelto in 02/2019, no longer taking - was on Metoprolol Amlodipine Imdur losartan prazosin 10mg qhs spiromolactone - now only on prazosin 10mg qhs and spironolactone 50mg daily 6. Bipolar disorder 7. BPH - off flomax 0.4mg daily - still taking prazosin 10mg qhs 8. COPD - albuterol as needed 9. Unspecified involuntary movements/seizure disorder - continue divalproex 500mg qam and 1000mg qhs 10. Hypothyroidism - off levothyroxine 50mcg daily due to hospice 11. Barretts esophagus/GERD - last EGD 09/27/2017 - on pepcid 12. Hypogonadism - no longer on testosterone cypionate injection 13. Sleep apnea - has CPAP. on oxygen at night 14. Health Care Maintenance - Colon Cancer Screening: has history of colon polyps (tubulovillous adenoma with low grade dysplasia found during a colonoscopy in 2011). last colonoscopy 10/11/2017 - AAA Screenin02/02/2018 CT of abd did not show AAA. - screening test not indicated due to hospice status - shingle vaccine per pt's request RTC in one year plus as needed The above plan has been discussed with him. He voiced understanding of the plan. - Vaccinations: IM - Immunizations Immunization Series Date Facility Reaction Info COVID-19 (MODERNA), MRNA, LNP-S,* 03/23/2022 [facility] 07/29/2021 [facility] 2 11/24/2020 [place] Count* 1 10/27/2020 Rice Count* INFLUENZA (HISTORICAL) SCHELLER CLINI* Renato fernandez* <C> INFLUENZA, HIGH DOSE SEASONAL 05/07/2017 [facility] 04/13/2016 [facility] 05/21/2014 [facility] 05/13/2014 [facility] 04/21/2013 [facility] 05/27/2012 [facility] INFLUENZA, HIGH-DOSE, QUADRIVALEN* 05/23/2021 [facility] 05/27/2020 [facility] INFLUENZA, INJECTABLE, QUADRIVALE* 05/18/2016 [facility] 05/26/2015 [facility] [facility] INFLUENZA, SEASONAL, INJECTABLE Comfort ho* Home healt* <C> 05/07/2012 [facility] [facility] 08/11/2005 [facility] [facility] INFLUENZA, SEASONAL, INJECTABLE,* 05/01/2017 [place] * 05/09/2011 [facility] [facility] INFLUENZA, TRIVALENT, ADJUVANTED 05/13/2019 [facility] [facility] INFLUENZA, UNSPECIFIED FORMULATIO* 05/13/2018 [facility] [facility] 04/18/2013 [place] * Comfort ho* 05/22/2011 Rochetser * <C> 05/19/2010 [place] * [place] 05/22/2008 [place] * 05/22/2008 [place] * 06/14/2007 [place] * 07/25/2006 [place] * NOVEL [id number], ALL FORM* 08/25/2009 [place] * <C> PNEUMOCOCCAL CONJUGATE PCV 13 11/23/2014 [facility] 11/20/2014 [place] * <C> PNEUMOCOCCAL POLYSACCHARIDE PPV23 07/19/2017 [facility]* <C> 07/19/2017 [facility] 02/17/2012 [facility] 08/11/2005 [facility] PNEUMOCOCCAL, UNSPECIFIED FORMULA* No Site <C> TD(ADULT) UNSPECIFIED FORMULATION Renato fernandez* <C> TDAP 03/21/2008 [facility]* <C> 03/21/2008 [facility] [facility] ZOSTER LIVE 05/10/2013 [facility]* <C> 05/10/2012 [facility] [facility] <C> See the Detailed Immunizations Health Summary Component[DIM] for Comments Clinical Reminders: Medication Reconciliation: Education Evaluations *Was medication education provided for NEW medications or CHANGES to medications? (including medication name, dose, route, reason for use, and potential side effects). No new medications or medication changes during this encounter. TERATOGENIC MED & CONTRACEPTION REVIEW (Optional)... === MEDICATION RECONCILIATION === Review Done: The medication list shown below was verified for accuracy and it includes all pending medications/active medications/all medications or discontinued within the last 90 days/all remote medications and non-VA medications. If a given category (i.e. remote meds) is not shown, that means that a patient doesn't have a medication(s) in that category. Allergies listed below were also reviewed/updated for accuracy. Allergies/ADR from [facility] may not display in CPRS. Use JLV MRT5 - Allergies/ADRs FACILITY ALLERGY/ADR -------- [facility] SULFA DRUGS [facility] NO KNOWN ALLERGIES Active and Recently Outpatient Medications (including Supplies): Start Date Active Non-VA Medications Refills Expiration 1) Non-VA ACETAMINOPHEN TAB Si MG ACTIVE MOUTH EVERY 6 HOURS NEEDED 2) Non-VA ALBUTEROL 90MCG (CFC-F) 200D ORAL ACTIVE INHL Si PUFFS INHALATION EVERY 6 HOURS NEEDED 3) Non-VA ALBUTEROL SO4 0.083% INHL 3ML ACTIVE SiML INHALATION EVERY 8 HOURS NEEDED 4) Non-VA DIVALPROEX NA 125MG SPRINKLE CAP ACTIVE SiMG MOUTH TWICE A DAY 5) Non-VA DOCUSATE NA 50MG/SENNOSIDES 8.6MG ACTIVE TAB Si TABLET MOUTH TWICE A DAY NEEDED 6) Non-VA FAMOTIDINE 20MG TAB SiMG ACTIVE MOUTH EVERY DAY 7) Non-VA HALOPERIDOL 1MG TAB SiMG ACTIVE MOUTH EVERY 4 HOURS NEEDED 8) Non-VA HYOSCYAMINE SULFATE 0.125MG TAB ACTIVE Si.125MG MOUTH EVERY 4 HOURS NEEDED 9) Non-VA INSULIN GLARGINE 100UNIT/ML INJ ACTIVE Si UNITS UNDER THE SKIN TWICE A DAY 10) Non-VA KETOCONAZOLE 2% CREAM Sig: THIN ACTIVE LAYER TWICE A DAY NEEDED 11) Non-VA KETOCONAZOLE SHAMPOO Sig: ACTIVE NEEDED 12) Non-VA LORAZEPAM 0.5MG TAB Si.5MG ACTIVE MOUTH EVERY 4 HOURS NEEDED 13) Non-VA MORPHINE TAB,IR Sig: MORPHINE ACTIVE SOLUBE TAB 10MG TWICE A DAY 14) Non-VA MORPHINE TAB,IR Sig: MORPHINE ACTIVE SOLUBE TAB 5MG EVERY 3 HOURS NEEDED 15) Non-VA NITROGLYCERIN 0.4MG SL TAB Sig: ACTIVE 0.4MG UNDER THE TONGUE NEEDED 16) Non-VA ONDANSETRON HCL 4MG TAB SiMG ACTIVE MOUTH EVERY 8 HOURS NEEDED 17) Non-VA PRAZOSIN HCL 5MG CAP SiMG ACTIVE MOUTH AT BEDTIME 18) Non-VA SPIRONOLACTONE 25MG TAB Sig: ACTIVE 50MG MOUTH EVERY DAY AAA Screening: The patient declines to undergo ultrasound to screen for possible abdominal aortic aneurysm. Comment: not indicated. on hospice Follow Up Colonoscopy: Colonoscopy is due based on information available to this reminder. Limited life expectancy <6 months. Screening/surveillance is not clinically indicated. Comment: on hospice Toxic Exposure Screening Follow-Up: Exposure Concern(s): 05/28/2023 [place] Related Exposures - Toxic Exposure Concern Follow-up Question(s): 05/28/2023 No Questions - Toxic Exposure Concern [place]/caregiver has no health or medical concerns related to their concern of environmental exposure. The following connections were provided to the [place]/caregiver: No connections needed at this time Assess Statin Use - Lipids (CVD/DM): The patient has a limited life expectancy and intervention is not likely to be useful. Explain: on hospice /karrie/ Juaquin Rader MD Physician [facility] Signed: 05/28/2023 15:40 07/23/2023 ADDENDUM STATUS: COMPLETED Alerting PACT that [facility] consult #[id number] has been forwarded to [facility] for the following reason: FORWARDED FROM 07/23/23 15:54 JUAQUIN RADER [facility]-NEUROLOGY Patient does not meet drive time for Neurology cares via either consult toolbox or [employer]. This bond underwriter does not have authority to approve CC consult for this specialty care in this circumstance. Consult thus forwarded to [facility]. Request PACT advise pt of same. /karrie/ IRINEO BRASWELL MD STAFF PHYSICIAN Signed: 07/23/2023 15:58 Receipt Acknowledged By: * AWAITING SIGNATURE * JUAQUIN RADER 07/23/2023 16:16 /karrie/ Kevin Serrano RN [facility] 07/23/2023 ADDENDUM STATUS: COMPLETED It appears is scheduled with [facility] on 08-02-23. /karrie/ Kevin Serrano RN [facility] Signed: 07/23/2023 16:18 JUAQUIN RADER [place] ([facility]) May 28, 2023 02:13 PM ADVANCE DIRECTIVE: LOCAL TITLE: AD NOTIFICATION AND SCREENING STANDARD TITLE: ADVANCE DIRECTIVE DATE OF NOTE: MAY 28, 2023@14:13 ENTRY DATE: MAY 28, 2023@14:13:11 AUTHOR: FIDELIA MILLER EXP COSIGNER: URGENCY: STATUS: COMPLETED ADVANCE DIRECTIVE NOTIFICATION: Patient was given written notification of the following rights: 1. Accept or refuse any medical treatment. 2. Complete a durable power of door to door selling agent for health care. 3. Complete a living will. ADVANCE DIRECTIVE SCREENING: Does patient have an Advance Directive? The patient has an Advance Directive. Does the patient wish to make any changes or revoke their current Advance Directive? No changes requested at this time. /karrie/ FIDELIA MILLER [facility] Signed: 05/28/2023 14:13 FIDELIA MILLER [place] ([facility]) May 28, 2023 02:07 PM PRIMARY CARE NURSI NG NOTE: LOCAL TITLE: [facility] NURSING PROGRESS NOTE STANDARD TITLE: PRIMARY CARE NURSING NOTE DATE OF NOTE: MAY 28, 2023@14:07 ENTRY DATE: MAY 28, 2023@14:07:25 AUTHOR: FIDELIA MILLER EXP COSIGNER: URGENCY: STATUS: COMPLETED [facility] NURSING PROGRESS NOTE Has ADDENDA TYPE OF VISIT: Appointment Check In Type of appointment: In-person appointment REASON FOR VISIT: [facility] sees [facility] ALLERGIES: SULFA DRUGS (December 11, 2005) GABAPENTIN (Feb 01, 2017) VITAL SIGNS: Blood Pressure: 162/99 (05/28/2023 14:03) Pulse: 89 (05/28/2023 14:03) Respiration: 14 (05/28/2023 14:03) Temperature: 97.5 F [36.4 C] (05/28/2023 14:03) Weight: 256 lb [116.12 kg] (05/28/2023 14:03) Height: 71 in [180.3 cm] (09/14/2016 13:50) BMI: 35.8 O2 Sat: 97% (05/28/2023 14:03) Pain: 5 (05/28/2023 14:03) PAIN SCREEN: Patient is having significant pain that they would like to talk to their provider about today. Old (Chronic) (began more than 6 months ago) Patient states their average pain this past week is 5 Patient states the average number on how the chronic pain affects their enjoyment of life the past week is 5 Patient states during the past week the average number on how the pain has interfered with their general activity is 5 Toxic Exposure Screening: The /caregiver was asked if they believe the experienced any toxic exposure(s), such as Airborne Hazards and [place], [place] related exposures, Agent [place], Radiation, contaminated water at [place] or other such exposures, while serving in the [employer]. /caregiver believes the was exposed to the following while serving in the [employer]: [place] contaminated water exposure: [place]/caregiver was made aware of educational resources that includes information on presumptive conditions and how to file a claim. Printed information was offered and provided if desired. No questions at this time /caregiver was informed of local points of contact. Contact information for local resources: - Veterans Benefits for claims submission: Have the call or have them visit the following web address for online scheduling: [email or web address] - [place] Healthcare Enrollment: 2-464-963-VETS ([phone]) - Find a Laundry Route Driver (VSO): Have the call 9-403-VVOZAAW or look up their VSO at: https://www.[employer]rbfulo.org/find- a-cvso.html - [facility] Navigators: Dr. Yusuf Gillespie: [phone] Dr. Alexis Lowery: [phone] Toxic Exposure Screening Follow-Up reminder is needed. Name of person notified: Homelessness/Food Insecurity Screen: In the past 2 months, have you been living in stable housing that you own, rent, or stay in as part of a household? Yes - Living in stable housing. Are you worried or concerned that in the next 2 months you may NOT have stable housing that you own, rent, or stay in as part of a household? No - Not worried about housing near future The [place] reports the following: Within the past 12 months, you worried whether your food would run out before you got money to buy more. Never true Within the past 12 months, the food you bought just didn't last and you didn't have money to get more. Never true Food Insecurity Resources Tobacco Use Screening: The patient uses tobacco every day. The patient does not use tobacco within 30 minutes of waking up. The patient has been smoking or using tobacco for thirty years or more. Patient was advised to quit smoking and/or using tobacco. Discussion with patient included: - Quitting smoking or tobacco use is one of the most important things you can do to protect and improve your health and [place] has the resources to support you. - Set a quit date when you are ready to quit. - Get support from your family and friends. - Review any past quit attempts- What helped? What didn't? - On the day you plan to quit, get rid of all cigarettes and tobacco products from your home, car or work. - Using a combination of behavioral counseling or other support strategies and FDA-approved cessation medications is the most effective way to ensure success in quitting. Patient was offered Behavioral Counseling and other support strategies to assist with quitting. Discussion with patient included: - Behavioral counseling or other support strategies greatly increases your chances of successfully quitting smoking or tobacco use by helping you develop a quit plan and providing support and other strategies to make behavioral changes to help you quit. - [place] has a number of behavioral counseling options to help you with quitting, including: * Provide information about the facility smoking or tobacco use treatment options or clinics * [place]'s national quitline, 5-998-UZZS-VET, with counseling available Sunday-Sunday The patient was not interested in receiving additional information about how to use the treatment options discussed. Patient was offered FDA-approved cessation medications. Discussion with patient included: - Medications for Nicotine replacement therapy such as the patch, gum or lozenge, and other medications such as varenicline or bupropion, can play an important role in the initial weeks and months after you quit smoking or tobacco use. - Medications help with cravings and withdrawal symptoms and they greatly increase your chances of successfully quitting. The patient was not interested in a prescription for tobacco cessation medications. Alcohol Use Screen (AUDIT-C): Alcohol Screen: SCREEN FOR ALCOHOL (AUDIT-C) An alcohol screening test (AUDIT-C) was negative (score=0). 1. How often did you have a drink containing alcohol in the past year? Never 2. How many drinks containing alcohol did you have on a typical day when you were drinking in the past year? Response not required due to responses to other questions. 3. How often did you have six or more drinks on one occasion in the past year? Response not required due to responses to other questions. PTSD Screening: PC-PTSD-5 A PTSD screening test (PC-PTSD-5) was negative (score=3). IN THE PAST MONTH, have you ever had any experience that was so frightening, horrible or traumatic. For example: A serious accident or fire a physical or sexual assault or abuse An earthquake or flood A war Seeing someone be killed or seriously injured Having a loved one through homicide or suicide Have you ever experienced this kind of event? YES 1. Had nightmares about the event(s) or thought about the event(s) when you did not want to? YES 2. Tried hard not to think about the event(s) or went out of your way to avoid situations that reminded you of the event(s)? YES 3. Been constantly on guard, watchful, or easily startled? NO 4. [place] numb or detached from people, activities, or your surroundings? NO 5. [place] guilty or unable to stop blaming yourself or others for the event(s) or any problems the event(s) may have caused? YES Nursing Annual Screening: Fall History Screen During the past 12 months, have you had any falls? Patient reports having had 2 or more falls within the past 12 months. MEDICATIONS: Patient is on one of the following medication classes: Antihypertensives, Antidepressants, Antipsychotics, Diuretics, or Controlled substance medication used for pain. FALL RISK ADVICE: Fall Risk Advice provided. Handout entitled Fall Prevention At Home reviewed and given to patient and/or significant other. Script Talk Screen Are you able to read your prescription bottles with your glasses, magnifiers or other aids? Yes or patient not taking any prescriptions. Skin Screen Patient reports any current pressure ulcers, a history of pressure ulcers, or a wound from a medical van driver or Patient is bed-confined or a wheelchair-user or Patient requires assistance to transfer/change position No, Skin Screen is Negative Home Abuse/Violence Screen Is your home free of abuse and violence? Yes MOVE! Program Screen Body Mass Index (BMI)= 35.8 [place]: Collection DT Specimen Test Name Result Units Ref Range 08/24/2017 15:34 BLOOD !! HEMOGLOBIN A1C 7.3 H % 4.0 - 6.0 !! Indicates COMMENTS AVAILABLE...Refer to Interim Lab Report. [place] Hgb A1C: No data available [place] Hgb A1C: No data available Point of Care Hgb A1C: POC HGB A1C____ Outpatient Nutrition Screen Body Mass Index (BMI)= 35.8 [place]: Collection DT Specimen Test Name Result Units Ref Range 08/24/2017 15:34 BLOOD !! HEMOGLOBIN A1C 7.3 H % 4.0 - 6.0 !! Indicates COMMENTS AVAILABLE...Refer to Interim Lab Report. [place] Hgb A1C: No data available [place] Hgb A1C: No data available Point of Care Hgb A1C: POC HGB A1C____ Is patient's BMI less than 18.5? No Does patient have swallowing, coughing, or chewing problems affecting oral intake? Yes Has patient experienced unplanned weight loss or gain greater than 10 pounds over the last 2 months? No Is patient's Hgb A1C (Glycosylated Hemoglobin) greater than 9.5? Information not available Is patient receiving Total Parenteral Nutrition (TPN) or Tube Feedings? No Patient Health Education Screen BARRIERS/SPECIAL NEEDS: No barriers identified PREFERRED STYLE OF LEARNING: No preference stated Client Assistive Service (BOBBY) Screen Does the patient require assistance with outpatient visit? [place] /karrie/ FIDELIA GARZA [facility] Signed: 05/28/2023 14:13 05/28/2023 ADDENDUM STATUS: COMPLETED Influenza Immunization: The patient was given the influenza VIS which lists the benefits and side effects of the vaccine and which reviews the risks of not receiving the flu vaccine. The VIS was reviewed with the patient and they were given an opportunity to ask questions. The patient was provided education on how to decrease the risk of influenza infection including social distancing and use of good hand hygiene. The patient denied any prior severe reaction to the flu vaccine or its components. The patient gave verbal consent to receive the vaccine. Influenza, High Dose, Quadrivalent (Fluzone - syringe) Administered: INFLUENZA, HIGH-DOSE, QUADRIVALENT Date Administered: May 28, 2023 14:00 Pegger: SANOFI PASTEUR Lot: [id number] Exp Date: Feb 10, 2024 [facility]: [phone] Admin Route/Site: INTRAMUSCULAR/LEFT DELTOID Dosage: 0.7mL Vaccine Information Statement(s): INFLUENZA(FLU) VACC(INACTIVATED OR RECOMBINANT)VIS Mar 18, 2021 ([place]ALI) Order By: Policy Administered By: Fidelia Miller Herpes Zoster (Shingles) Vaccine: Recombinant zoster vaccine (Shingrix, RZV) dose #1 Administered: ZOSTER RECOMBINANT Date Administered: May 28, 2023 14:00 Series: Series 1 Pegger: FMP Products Lot: [id number] Exp Date: Apr 01, 2024 [facility]: [phone] Admin Route/Site: INTRAMUSCULAR/RIGHT DELTOID Dosage: 0.5mL Vaccine Information Statement(s): RECOMBINANT ZOSTER VACCINE VIS Sep 16, 2021 ([place]) Order By: Policy Administered By: Fidelia Miller Comment: [phone] Vaccine Information Sheet (VIS) was given to the patient/caregiver, education regarding adverse reactions was discussed, as well as barriers to learning, if any, were acknowledged. /karrie/ FIDELIA GARZA [facility] Signed: 05/28/2023 14:24 FIDELIA MILLER ([facility])
--- OUTSIDE RECORDS SUMMARY | 2023-09-05 12:31 | XMS_ITS | Encounter Summary ---
Author Name Department of Vetera Affairs Organization Department of [facility] Affairs Address [address] [place] [address] Support Name Relationship Address Phone AMBER GEORGE Next of Kin [address] [facility] [address] [place], [place] [address] MIGUEL GEORGE Emergency Contact [address] [address] [place] AMBER Next of Kin [address] [place] [address] Insurance Providers: All historical and current Section [...] AID (WNR) Jun 13, 2016 MEDICAI D [id number] [phone] STEVEN GEORGE PATIENT MEDICAID (WNR) MEDICAID MEDIC AID (WNR) Aug 13, 2001 MEDICAI D [id number] [phone] STEVEN GEORGE PATIENT MEDICARE (WNR) MEDICARE (M) PART A Jul 13, 2002 PART A [id number] STEVEN GEORGE PATIENT MEDICARE (WNR) MEDICARE (M) PART B Jul 13, 2002 PART B [id number] [phone] STEVEN GEORGE PATIENT MEDICARE (WNR) MEDICARE (M) PART A Jul 13, 2002 PART A [id number] STEVEN GEORGE PATIENT MEDICARE (WNR) MEDICARE (M) PART B Jul 13, 2002 PART B [id number] STEVEN GEORGE PATIENT MEDICARE (WNR) MEDICARE (M) PART A Jul 13, 2002 PART A [id number] [phone] STEVEN GEORGE PATIENT MEDICARE (WNR) MEDICARE (M) PART B Jul 13, 2002 PART B [id number] STEVEN GEORGE PATIENT Selected Encounter This section includes the information on record at PA for the Encounter. Date/Time Encounter Type Encounter Description Reason Pro vider Source Jul 16, 2023 01:38 PM Outpatient Encounter TELEPHONE TRIAGE IHE Encounter Template Text not used by PA Plan of Treatment: Future Appointments (+ 6 months) and Future Tests (+/- 45 days) The Plan of Treatment section includes future care activities for the patient [facility] This section includes future appointments and future orders which are active, pending or scheduled. Future Appointments This section includes appointments that were scheduled to occur 6 months from the date of the Encounter, up to a maximum of 20 appointments. The data comes from all [facility]. Appointment Date/Time Appointment Type Appointme nt Facility Name Jul 30, 2023 01:15 PM AMBULATORY - MEDICINE [facility] ([facility]) Aug 02, 2023 01:00 PM AM[facility]ULAT[facility] Aug 23, 2023 02:00 PM AMBULATORY - MEDICINE [facility] ([facility]) Oct 04, 2023 02:00 [facility] Nov 22, [facility]23 02:00 PM AMBULATORY - MEDICINE [facility] ([facility]) Active, Pending, and Scheduled Orders This section includes a listing of several types of active, pending, and scheduled orders, including clinic medications orders, diagnostic test orders, procedure orders and consult orders; where the start date of the order is 45 days before the date of the Encounter or 45 days after the date of theEncounter. The data comes from all [facility]. Test Date/Time Test Type Test Details Facility Name Aug 22, 2023 12:00 AM Imaging - Magnetic Resonance Imaging (MRI) Order MRI-C-SPINE (P) [facility] Aug 23, 2023 03:06 PM Consult Order DERMATOLOG Y OUTPT Cons [employer] [place] ([facility]) Lab Results: +/- 30 days of the encounter This section includes the Chemistry and Hematology Lab Results on record with PA for the patient. Radiology Reports and Pathology Reports are provided separately, in subsequent sections. Lab Results This section contains the Chemistry/Hematology Results that were resulted 30 days before or 30 daysafter the date of the Encounter. Date/Time Source Result Type Result - Unit Interpretation Reference Range Comment Aug 02, 2023 02:10 PM [facility] METHYLMALONIC ACID Specimen Type: SERUM No comment entered. Ordering Provider: MAYA NAVAS Report Released Date/Time: Aug 02, 2023 01:46 PM Reporting Lab: [facility] [id number] Performing Lab: [facility] [id number] METHYLMALONIC ACID 187 0-400 Aug 02, 2023 02:10 PM [facility] B 12 Specimen Type: SERUM No comment entered. Ordering Provider: MAYA NAVAS Report Released Date/Time: Aug 02, 2023 01:45 PM Reporting Lab: [facility] [id number] Performing Lab: [facility] [id number] B 12 [phone] Aug 02, 2023 02:10 PM [facility] VALPROIC ACID Specimen Type: SERUM No comment entered. Ordering Provider: MAYA NAVAS Report Released Date/Time: Aug 02, 2023 01:48 PM Reporting Lab: [facility] [address] Performing Lab: [facility] [address] VALPROIC ACID 89.8 50.0-125.0 Aug 02, 2023 02:10 PM [facility] ELP/IMMFIX,SERUM PANEL Specimen Type: SERUM No comment entered. Ordering Provider: MAYA NAVAS Report Released Date/Time: Aug 02, 2023 01:45 PM Reporting Lab: [facility] [id number] Performing Lab: [facility] [id number] PROTEIN,TOTAL 6.4 6.0-8.3 .ALBUMIN FRACTION 3.63 L 3.66-4.78 .ALPHA 1 FRACTION 0.37 0.14-0.38 .ALPHA 2 FRACTION 0.65 0.50-0.90 .BETA 1 FRACTION 0.51 0.33-0.55 .BETA 2 FRACTION 0.46 0.20-0.52 .GAMMA FRACTION 0.79 0.58-1.72 .TOTAL PROTEIN 6.4 6.0-8.3 .INTERPRETATION NO MONOCLONALS DETECTED Aug 02, 2023 02:10 PM [facility] CBC Specimen Type: BLOOD No comment entered. Ordering Provider: MAYA NAVAS Report Released Date/Time: Aug 02, 2023 01:54 PM Reporting Lab: [facility] [id number] Performing Lab: [facility] [address] WBC 6.45 4.0-11.0 RBC 4.87 4.6-6.2 HGB 14.4 13.5-17.9 HCT 41.6 41-54 MCV 85.4 80-100 MCH 29.6 27-33 MCHC 34.6 32.0-37.5 PLT 102 L 150-400 MPV 9.4 7.4-10.4 RDW 12.9 11.5-14.5 Social History: Smoking Status (Most current) and Tobacco Use (All prior to encounter date) This section includes the most current, and the historical, smoking and tobacco- related health factors from the PA facility where the Encounter took place. Current Smoking Status This section includes the most current smoking, or tobacco-related health factor, from the PA facility where the Encounter took place. Date/Time Current Smoking Status Comment Alice barkley Aug 05, 2017 02:25 PM INPT TOBACCO COUNSELING [facility] Tobacco Use History This section includes a history of the smoking, or tobacco-related health factors, that were collected on or before the date of the Encounter. The data comes from the PA facility where the Encounter took place. Date/Time Smoking Status/Tobacco Use Comment F acility Aug 05, 2017 02:25 PM INPT TOBACCO [facility] [place] [facility] Aug 03, 2017 03:37 PM INPT TOBACCO COUNSELING [facility] Aug 03, 2017 03:37 PM INPT TOBACCO USER [place] [facility] Jul 27, 2017 08:25 PM INPT TOBACCO COUNSELING [facility] Jul 27, 2017 08:25 PM INPT TOBACCO USER [place] [facility] Nov 11, 2013 11:21 AM LIFETIME NON-TOBACCO USER [facility] Apr 20, 2008 09:01 PM PATIENT ADVISED TO QUIT TOBACCO [facility] Apr 20, 2008 09:01 PM PATIENT IS TOBACCO USER [facility] Apr 20, 2008 09:01 PM PATIENT REFERRED F OR TOBACCO CESSATION [facility] Apr 20, 2008 09:01 PM PATIENT WILLING TO QUIT TOBACCO [facility] Advance Directives: All historical and current Section Date Range: From patient's date of to the date document was created. This section includes ALL of a patient's completed or amended PA Advance and Rescinded Directives. The entries below indicate that a directive exists for the patient, but an actual copy is not included with this document. The data comes from all PA facilities. Date Advance Directives Provider Source December 24, 2003 ADVANCE DIRECTIVE ANTONIO OLVERA ([facility]) Aug 26, 2002 ADVANCE DIRECTIVE DILLON SILVA [facility] Encounter Notes: All associated encounter notes This section contains the clinical notes associated to the Encounter. Date/Time Encounter Note(s) Provider Source Jul 24, 2023 11:39 AM ADDENDUM: LOCAL TITLE: Addendum STANDARD TITLE: ADDENDUM DATE OF NOTE: JUL 24, 2023@11:39:13 ENTRY DATE: JUL 24, 2023@11:39:14 AUTHOR: JUAQUIN RADER EXP COSIGNER: URGENCY: STATUS: COMPLETED he is not qualified for CC dermatology consult and PA dermatology clinic recommend PCP visit for evaluation first then decide if he should get dermatology or telederm consult. please check if he is willing to get evaluated at our clinic. /karrie/ Juaquin Rader MD Physician [facility] Signed: 07/24/2023 11:40 Receipt Acknowledged By: 07/30/2023 08:23 /karrie/ Jennie Serrano RN [facility] --- Original Document --- 07/16/23 CCC: SCHEDULING ADMINISTRATION: Primary Care Call Center Phone number verified as correct. [phone] called and is asking to please get a call back to discuss getting a referral for dermatology and neurology. He states that he has spots that he would like to get checked out and also testing for Parkinson's through neurology. This junior copywriter did offer to have him speak with a triage nurse and he declined. TX! /karrie/ SUSIE MAYEN VISN 23 [facility] Signed: 07/16/2023 13:41 Receipt Acknowledged By: 07/17/2023 15:09 /karrie/ Jennie Serrano RN [facility] 07/17/2023 ADDENDUM STATUS: COMPLETED Attempted to call to get more information, specifically spots that he would like checked out. [place] did not answer and VM was not self- identifying. PCP: Please place consults requested by or inform junior copywriter to continue to attempt to contact for more information. /karrie/ Jennie Serrano RN [facility] Signed: 07/17/2023 15:12 Receipt Acknowledged By: 07/17/2023 16:32 /karrie/ Juaquin Rader MD Physician [facility] 07/17/2023 ADDENDUM STATUS: COMPLETED please get more information. /karrie/ Juaquin Rader MD Physician [facility] Signed: 07/17/2023 16:33 Receipt Acknowledged By: 07/19/2023 14:30 /karrie/ Jennie Serrano RN [facility] 07/18/2023 ADDENDUM STATUS: COMPLETED [place] returned call. Please try him again [phone] /karrie/ ILDEFONSO [id number] [facility] Signed: 07/18/2023 13:32 Receipt Acknowledged By: 07/20/2023 14:31 /karrie/ Jennie Serrano RN [facility] 07/19/2023 ADDENDUM STATUS: COMPLETED Attempted to call again. [place] did not answer and VM was not self- identifying. General VM left, indicating junior copywriter would call again by tomorrow. /karrie/ Jennie Serrano RN [facility] Signed: 07/19/2023 14:31 07/20/2023 ADDENDUM STATUS: COMPLETED Attempted to call again. [place] did not answer and VM was not self- identifying. Software Applications Developer will attempt again at a later time. /karrie/ Jennie Serrano RN [facility] Signed: 07/20/2023 10:26 07/20/2023 ADDENDUM STATUS: COMPLETED Spoke with . He indicated the reasons for each consult below: Dermatology - has open sores on his neck, ear, forehead, and arm. -He has had for up to a year. -Everything he has tried does not help. -Prefers CITC consult. Neurology - stated he is having neurological problems and showing signs of Parkinson's. -Stated walking/coordination is declining, notices tremor in hands and legs, and is losing feeling in his hands. -When asked how long he has had the above symptoms, was not sure, but stated symptoms are getting worse. -Prefers CITC consult. Time on phone: 5:36 PCP: Please place consults if deemed appropriate. /suzanne Serrano RN [facility] Signed: 07/20/2023 14:41 Receipt Acknowledged By: 07/22/2023 13:27 /karrie/ Juaquin Rader MD Physician [facility] 07/26/2023 ADDENDUM STATUS: COMPLETED Attempted to call . He did not answer and VM was not self-identifying. Software Applications Developer will attempt again at a later time. /suzanne Serrano RN [facility] Signed: 07/26/2023 10:58 07/27/2023 ADDENDUM STATUS: COMPLETED Attempted to call . He did not answer and VM was not self-identifying. Software Applications Developer will attempt again at a later time. /suzanne Serrano RN [facility] Signed: 07/27/2023 12:30 07/30/2023 ADDENDUM STATUS: UNSIGNED You may not VIEW this UNSIGNED Addendum. JUAQUIN RADER [facility] Jul 20, 2023 02:33 PM ADDENDUM: LOCAL TITLE: Addendum STANDARD TITLE: ADDENDUM DATE OF NOTE: JUL 20, 2023@14:33:27 ENTRY DATE: JUL 20, 2023@14:33:29 AUTHOR: JENNIE SERRANO EXP COSIGNER: URGENCY: STATUS: COMPLETED Spoke with . He indicated the reasons for each consult below: Dermatology -[place] has open sores on his neck, ear, forehead, and arm. -He has had for up to a year. -Everything he has tried does not help. -Prefers CITC consult. Neurology - stated he is having neurological problems and showing signs of Parkinson's. -Stated walking/coordination is declining, notices tremor in hands and legs, and is losing feeling in his hands. -When asked how long he has had the above symptoms, was not sure, but stated symptoms are getting worse. -Prefers CITC consult. Time on phone: 5:36 PCP: Please place consults if deemed appropriate. /karrie/ Jennie Serrano RN [facility] Signed: 07/20/2023 14:41 Receipt Acknowledged By: 07/22/2023 13:27 /suzanne Rader MD Physician [facility] --- Original Document --- 07/16/23 [facility] SCHEDULING ADMINISTRATION: Primary Care Call Center Phone number verified as correct. [phone] [place] called and is asking to please get a call back to discuss getting a referral for dermatology and neurology. He states that he has spots that he would like to get checked out and also testing for Parkinson's through neurology. This junior copywriter did offer to have him speak with a triage nurse and he declined. TX! /karrie/ SUSIE DORSEY 23 [facility] Signed: 07/16/2023 13:41 Receipt Acknowledged By: 07/17/2023 15:09 /karrie/ Jennie Serrano RN [facility] 07/17/2023 ADDENDUM STATUS: COMPLETED Attempted to call to get more information, specifically spots that he would like checked out. did not answer and VM was not self- identifying. PCP: Please place consults requested by or inform junior copywriter to continue to attempt to contact for more information. /karrie/ Jennie Serrano RN [facility] Signed: 07/17/2023 15:12 Receipt Acknowledged By: 07/17/2023 16:32 /suzanne Rader MD Physician [facility] 07/17/2023 ADDENDUM STATUS: COMPLETED please get more information. /suzanne Rader MD [facility] Signed: 07/17/2023 16:33 Receipt Acknowledged By: 07/19/2023 14:30 /suzanne Serrano RN [facility] 07/18/2023 ADDENDUM STATUS: COMPLETED returned call. Please try him again [phone] /es/ ILDEFONSO VICENTE VISN23 [facility] Signed: 07/18/2023 13:32 Receipt Acknowledged By: 07/20/2023 14:31 /suzanne Serrano RN [facility] 07/19/2023 ADDENDUM STATUS: COMPLETED Attempted to call again. [place] did not answer and VM was not self- identifying. General VM left, indicating junior copywriter would call again by tomorrow. /suzanne Serrano RN [facility] Signed: 07/19/2023 14:31 07/20/2023 ADDENDUM STATUS: COMPLETED Attempted to call again. [place] did not answer and VM was not self- identifying. Software Applications Developer will attempt again at a later time. /suzanne Serrano RN [facility] Signed: 07/20/2023 10:26 JENNIE SERRANO [facility] Jul 18, 2023 01:32 PM ADDENDUM: LOCAL TITLE: Addendum STANDARD TITLE: ADDENDUM DATE OF NOTE: JUL 18, 2023@13:32:15 ENTRY DATE: JUL 18, 2023@13:32:17 AUTHOR: ILDEFONSO VICENTE EXP COSIGNER: URGENCY: STATUS: COMPLETED [place] returned call. Please try him again [phone] /akrrie/ ILDEFONSO VICENTE VISN23 [facility] Signed: 07/18/2023 13:32 Receipt Acknowledged By: 07/20/2023 14:31 /suzanne Serrano RN [facility] --- Original Document --- 07/16/23 CCC: SCHEDULING ADMINISTRATION: Primary Care Call Center Phone number verified as correct. [phone] [place] called and is asking to please get a call back to discuss getting a referral for dermatology and neurology. He states that he has spots that he would like to get checked out and also testing for Parkinson's through neurology. This junior copywriter did offer to have him speak with a triage nurse and he declined. TX! /karrie/ SUSIE DORSEY 23 [facility] Signed: 07/16/2023 13:41 Receipt Acknowledged By: 07/17/2023 15:09 /suzanne Serrano RN [facility] 07/17/2023 ADDENDUM STATUS: COMPLETED Attempted to call to get more information, specifically spots that he would like checked out. did not answer and VM was not self- identifying. PCP: Please place consults requested by or inform junior copywriter to continue to attempt to contact for more information. /suzanne Serrano RN [facility] Signed: 07/17/2023 15:12 Receipt Acknowledged By: 07/17/2023 16:32 /suzanne Rader MD Physician [facility] 07/17/2023 ADDENDUM STATUS: COMPLETED please get more information. /suzanne Rader MD Physician [facility] Signed: 07/17/2023 16:33 Receipt Acknowledged By: 07/19/2023 14:30 /suzanne Serrano RN [facility] 07/19/2023 ADDENDUM STATUS: COMPLETED Attempted to call again. [place] did not answer and VM was not self- identifying. General VM left, indicating junior copywriter would call again by tomorrow. /suzanne Serrano RN [facility] Signed: 07/19/2023 14:31 07/20/2023 ADDENDUM STATUS: COMPLETED Attempted to call again. [place] did not answer and VM was not self- identifying. Software Applications Developer will attempt again at a later time. /suzanne Serrano RN [facility] Signed: 07/20/2023 10:26 07/20/2023 ADDENDUM STATUS: UNSIGNED You may not VIEW this UNSIGNED Addendum. [facility] Jul 17, 2023 04:32 PM ADDENDUM: LOCAL TITLE: Addendum STANDARD TITLE: ADDENDUM DATE OF NOTE: JUL 17, 2023@16:32:48 ENTRY DATE: JUL 17, 2023@16:32:49 AUTHOR: JUAQUIN RADER COSIGNER: URGENCY: STATUS: COMPLETED please get more information. /karrie/ Juaquin Rader MD Physician [facility] Signed: 07/17/2023 16:33 Receipt Acknowledged By: 07/19/2023 14:30 /karrie/ Jennie Serrano RN [facility] --- Original Document --- 07/16/23 CCC: SCHEDULING ADMINISTRATION: Primary Care Call Center Phone number verified as correct. [phone] called and is asking to please get a call back to discuss getting a referral for dermatology and neurology. He states that he has spots that he would like to get checked out and also testing for Parkinson's through neurology. This junior copywriter did offer to have him speak with a triage nurse and he declined. TX! /es/ SUSIE DORSEY 23 [facility] Signed: 07/16/2023 13:41 Receipt Acknowledged By: 07/17/2023 15:09 /karrie/ Jennie Serrano RN [facility] 07/17/2023 ADDENDUM STATUS: COMPLETED Attempted to call to get more information, specifically spots that he would like checked out. did not answer and VM was not self- identifying. PCP: Please place consults requested by or inform junior copywriter to continue to attempt to contact for more information. /karrie/ Jennie Serrano RN [facility] Signed: 07/17/2023 15:12 Receipt Acknowledged By: 07/17/2023 16:32 /karrie/ Juaquin Rader MD Physician [facility] 07/18/2023 ADDENDUM STATUS: COMPLETED returned call. Please try him again [phone] /es/ ILDEFONSO [id number] [facility] Signed: 07/18/2023 13:32 Receipt Acknowledged By: * AWAITING SIGNATURE * JENNIE SERRANO 07/19/2023 ADDENDUM STATUS: COMPLETED Attempted to call again. [place] did not answer and VM was not self- identifying. General VM left, indicating junior copywriter would call again by tomorrow. /karrie/ Jennie Serrano RN [facility] Signed: 07/19/2023 14:31 JUAQUIN RADER [facility] Jul 17, 2023 03:09 PM ADDENDUM: LOCAL TITLE: Addendum STANDARD TITLE: ADDENDUM DATE OF NOTE: JUL 17, 2023@15:09:22 ENTRY DATE: JUL 17, 2023@15:09:22 AUTHOR: JENNIE SERRANO COSIGNER: URGENCY: STATUS: COMPLETED Attempted to call to get more information, specifically spots that he would like checked out. [place] did not answer and VM was not self- identifying. PCP: Please place consults requested by or inform junior copywriter to continue to attempt to contact for more information. /karrie/ Jennie Serrano RN [facility] Signed: 07/17/2023 15:12 Receipt Acknowledged By: 07/17/2023 16:32 /es/ Juaquin Rader MD Physician [facility] --- Original Document --- 07/16/23 [facility] SCHEDULING ADMINISTRATION: Primary Care Call Center Phone number verified as correct. [phone] [place] called and is asking to please get a call back to discuss getting a referral for dermatology and neurology. He states that he has spots that he would like to get checked out and also testing for Parkinson's through neurology. This junior copywriter did offer to have him speak with a triage nurse and he declined. TX! /es/ SUSIE DORSEY 23 [facility] Signed: 07/16/2023 13:41 Receipt Acknowledged By: 07/17/2023 15:09 /karrie/ Jennie Serrano RN [facility] 07/17/2023 ADDENDUM STATUS: COMPLETED please get more information. /karrie/ Juaquin Rader MD Physician [facility] Signed: 07/17/2023 16:33 Receipt Acknowledged By: * AWAITING SIGNATURE * JENNIE SERRANO [facility] Jul 16, 2023 01:38 PM ADMINISTRATIVE NOT E: LOCAL TITLE: CCC: SCHEDULING ADMINISTRATION STANDARD TITLE: ADMINISTRATIVE NOTE DATE OF NOTE: JUL 16, 2023@13:38 ENTRY DATE: JUL 16, 2023@13:38:36 AUTHOR: SUSIE MAYEN EXP COSIGNER: URGENCY: STATUS: COMPLETED CCC: SCHEDULING ADMINISTRATION Has ADDENDA Primary Care Call Center Phone number verified as correct. [phone] called and is asking to please get a call back to discuss getting a referral for dermatology and neurology. He states that he has spots that he would like to get checked out and also testing for Parkinson's through neurology. This junior copywriter did offer to have him speak with a triage nurse and he declined. TX! /karrie/ SUSIE DORSEY 23 [facility] Signed: 07/16/2023 13:41 Receipt Acknowledged By: 07/17/2023 15:09 /karrie/ Jennie Serrano RN [facility] 07/17/2023 ADDENDUM STATUS: COMPLETED Attempted to call to get more information, specifically spots that he would like checked out. [place] did not answer and VM was not self- identifying. PCP: Please place consults requested by or inform junior copywriter to continue to attempt to contact for more information. /karrie/ Jennie Serrano RN [facility] Signed: 07/17/2023 15:12 Receipt Acknowledged By: 07/17/2023 16:32 /karrie/ Juaquin Rader MD Physician [facility] 07/17/2023 ADDENDUM STATUS: COMPLETED please get more information. /karrie/ Juaquin Rader MD Physician [facility] Signed: 07/17/2023 16:33 Receipt Acknowledged By: 07/19/2023 14:30 /suzanne Serrano RN [facility] 07/18/2023 ADDENDUM STATUS: COMPLETED [place] returned call. Please try him again [phone] /es/ ILDEFONSO VICENTE [id number] [facility] Signed: 07/18/2023 13:32 Receipt Acknowledged By: 07/20/2023 14:31 /karrie/ Jennie Serrano RN [facility] 07/19/2023 ADDENDUM STATUS: COMPLETED Attempted to call again. [place] did not answer and VM was not self- identifying. General VM left, indicating junior copywriter would call again by tomorrow. /suzanne Serrano RN [facility] Signed: 07/19/2023 14:31 07/20/2023 ADDENDUM STATUS: COMPLETED Attempted to call again. [place] did not answer and VM was not self- identifying. Software Applications Developer will attempt again at a later time. /karrie/ Jennie Serrano RN [facility] Signed: 07/20/2023 10:26 07/20/2023 ADDENDUM STATUS: COMPLETED Spoke with . He indicated the reasons for each consult below: Dermatology - has open sores on his neck, ear, forehead, and arm. -He has had for up to a year. -Everything he has tried does not help. -Prefers [facility] consult. Neurology -[place] stated he is having neurological problems and showing signs of Parkinson's. -Stated walking/coordination is declining, notices tremor in hands and legs, and is losing feeling in his hands. -When asked how long he has had the above symptoms, was not sure, but stated symptoms are getting worse. -Prefers [facility] consult. Time on phone: 5:36 PCP: Please place consults if deemed appropriate. /karrie/ Jennie Serrano RN [facility] Signed: 07/20/2023 14:41 Receipt Acknowledged By: 07/22/2023 13:27 /karrie/ Juaquin Rader MD Physician [facility] 07/24/2023 ADDENDUM STATUS: COMPLETED he is not qualified for [facility] dermatology consult and [facility] dermatology clinic recommend PCP visit for evaluation first then decide if he should get dermatology or telederm consult. please check if he is willing to get evaluated at our clinic. /suzanne Rader MD Physician [facility] Signed: 07/24/2023 11:40 Receipt Acknowledged By: 07/30/2023 08:23 /suzanne Serrano RN [facility] 07/26/2023 ADDENDUM STATUS: COMPLETED Attempted to call . He did not answer and VM was not self-identifying. Software Applications Developer will attempt again at a later time. /karrie/ Jennie Serrano RN [facility] Signed: 07/26/2023 10:58 07/27/2023 ADDENDUM STATUS: COMPLETED Attempted to call . He did not answer and VM was not self-identifying. Software Applications Developer will attempt again at a later time. /karrie/ Jennie Serrano RN [facility] Signed: 07/27/2023 12:30 07/30/2023 ADDENDUM STATUS: COMPLETED Attempted to call concerning dermatology consult (see above). He did not answer. Generic message left on non self-identifying VM, requesting return call to PACT. Call Center phone number verbalized for . /suzanne Serrano RN [facility] Signed: 07/30/2023 08:26 [facility]
--- OUTSIDE RECORDS SUMMARY | 2023-09-05 12:31 | XMS_ITS | Encounter Summary ---
Author Name [facility] Organization [facility] Address [address] [place] [address] Support Name Relationship Address Phone MARIALUISAAMBER GUY Next of Kin [address] [facility] A PT [address] [place] [address] MIGUEL GEORGE Emergency Contact [address] [address] AME AMBER Next of Kin [address] [place] [address] Insurance Providers: All historical and current Section [...] AID (WNR) Jun 13, 2016 MEDICAI D [id number] [phone] STEVEN GEORGE PATIENT MEDICAID (WNR) MEDICAID MEDIC AID (WNR) Aug 13, 2001 MEDICAI D [id number] [phone] ST[place] PATIENT MEDICARE (WNR) MEDICARE (M) PART A Jul 13, 2002 PART A [id number] STEVEN [place]OR[place] PATIENT MEDICARE (WNR) MEDICARE (M) PART B Jul 13, 2002 PART B [id number] STEVEN GEOR[place] PATIENT MEDICARE (WNR) MEDICARE (M) PART A Jul 13, 2002 PART A [id number] ST[place]EN [place] PATIENT MEDICARE (WNR) MEDICARE (M) PART B Jul 13, 2002 PART B [id number] ST[place]EN [place] PATIENT MEDICARE (WNR) MEDICARE (M) PART B Jul 13, 2002 PART B [id number] [phone] STEVEN GEOR[place] PATIENT MEDICARE (WNR) MEDICARE (M) PART A Jul 13, 2002 PART A [id number] STEVEN GEORGE PATIENT Selected Encounter This section includes the information on record at [place] for the Encounter. Date/Time Encounter Type Encounter Description Reason Provider Source Jul 30, 2023 01:15 PM ADMN SARSCOV2 VACC 1 DOSE PRIMARY CARE/MEDICINE ICD-10-CM E11.40 Type 2 diabetes mellitus with diabetic neuropathy, amarip [facility] Encounter Template Text not used by [place] Assessments - Encounter Diagnoses This section includes the primary and secondary diagnoses documented for the Encounter. Date/Time Primary/Secondary Diagnosis Diagnosis Name Provider Source Jul 30, 2023 01:41 PM PRIMARY Type 2 diabetes mellitus with diabetic neuropathy, unsp [facility] ([facility]) Jul 30, 2023 01:41 PM SECONDARY Encounter for immunization [facility] ([facility]) Plan of Treatment: Future Appointments (+ 6 months) and Future Tests (+/- 45 days) The Plan of Treatment section includes future care activities for the patient from all [place] treatmentfacilities. This section includes future appointments and future orders which are active, pending or scheduled. Future Appointments This section includes appointments that were scheduled to occur 6 months from the date of the Encounter, up to a maximum of 20 appointments. The data comes from all [place] treatment facilities. Appointment Date/Time Appointment Type Appointme nt Facility Name Aug 02, 2023 01:00 PM AMBULATORY - REHAB MEDICIN E [facility] Aug 23, 2023 02:00 PM AMBULATORY - MEDICINE [facility] ([facility]) Oct 04, 2023 02:00 PM AMBULATORY - REHAB MEDICIN [facility] Nov 22, 2023 02:00 PM AMBULATORY - [...] of theEncounter. The data comes from all [place] treatment facilities. Test Date/Time Test Type Test Details Facility Name Aug 22, 2023 12:00 AM Imaging - Magnetic Resonance Imaging (MRI) Order MRI-C-SPINE (P) [facility] Aug 23, 2023 03:06 PM Consult Order DERMATOLOG Y OUTPT Cons Hoist Mechanic's Choice [facility] ([facility]) Lab Results: +/- 30 days of the encounter This section includes the Chemistry and Hematology Lab Results on record with [place] for the patient. Radiology Reports and Pathology Reports are provided separately, in subsequent sections. Lab Results This section contains the Chemistry/Hematology Results that were resulted 30 days before or 30 daysafter the date of the Encounter. Date/Time Source Result Type Result - Unit Interpretation Reference Range Comment Aug 23, 2023 02:59 PM [facility]) MICROALBUMIN/CREATININE RATIO URINE Specimen Type: URINE No comment entered. Ordering Provider: TOMMY IBQAL Report Released Date/Time: Aug 23, 2023 02:31 PM Reporting Lab: [facility] [id number] Performing Lab: [facility] [id number] CREATININE,UR RANDOM 229.8 H 58.0-161.0 ALB/CREAT RATIO,UR 8.6 <29.9 MICROALBUMIN,U R 19.8 <29.9 Aug 23, 2023 02:57 PM [facility] ([facility]) POC URINALYSIS Specimen Type: URINE No comment entered. Ordering Provider: TOMMY IQBAL Report Released Date/Time: Aug 23, 2023 03:00 PM Reporting Lab: [facility] ([facility]) [address] [place] [phone] Performing Lab: [facility]) [address] [place] [phone] POC URINE SG >=1.030 H 1.001-1 .03 5 POC URINE PH 5.0 4.6-8.0 POC URINE LEUKOCYTES Negative Negative POC URINE NITRITE Negative Negative POC URINE PROTEIN Negative Negative POC URINE GLUCOSE Negative Negative POC URINE KETONE Trace H Negative POC URINE BILIRUBIN Negative Negative POC URINE BLOOD Negative Negative POC URINE COLOR Dark yellow H POC URINE CLARITY Turbid H Aug 23, 2023 02:44 PM [facility]) TSH W/REFLEX TO FREE T4 Specimen Type: PLASMA Comment: Elevated triglyceride result from a non-fasting specimen should be interpreted with caution. A fasting panel is recommended for accurate triglycerides when trigs are >200 from a non-fasting specimen. Ordering Provider: TOMMY IQBAL Report Released Date/Time: Aug 23, 2023 02:28 PM Reporting Lab: [facility] [id number] Performing Lab: [facility] [phone] TSH 1.36 0.35-4.94 Aug 23, 2023 02:44 PM [facility] ([facility]) HEMOGLOBIN A1C Specimen Type: BLOOD Comment: Values obtained from A1C measurements can vary. For typical A1C assays, a reported value of 7.0 could actually be between 6.7 and 7.3 if measured by a reference method. A reported value of 9.0 could actually be between 8.7 and 9.3. Ref: http://www.ngs p.org/CAPdata. asp Ordering Provider: TOMMY IQBAL Report Released Date/Time: Aug 23, 2023 02:28 PM Reporting Lab: [facility] [phone] Performing Lab: [facility] [id number] HEMOGLOBIN A1C 8.3 H 4.0-6.0 Aug 23, 2023 02:44 PM [facility] ([facility]) LIPID PANEL,NON-FASTING Specimen Type: PLASMA Comment: Elevated triglyceride result from a non-fasting specimen should be interpreted with caution. A fasting panel is recommended for accurate triglycerides when trigs are >200 from a non-fasting specimen. Ordering Provider: TOMMY IQBAL Report Released Date/Time: Aug 23, 2023 02:28 PM Reporting Lab: [facility] [phone] Performing Lab: [facility] [phone] CHOLESTEROL 202 H <199 .HDL 34 L >40 LDL CALCULATION 123 H <99 VLDL CALCULATION 45 H <29 NON HDL CHOLESTEROL 168 H <129 TRIG(NON FASTING) 225 H <149 Aug 23, 2023 02:44 PM [facility] ([facility]) BASIC METABOLIC PANEL+MG Specimen Type: PLASMA Comment: Elevated triglyceride result from a non-fasting specimen should be interpreted with caution. A fasting panel is recommended for accurate triglycerides when trigs are >200 from a non-fasting specimen. Ordering Provider: TOMMY IQBAL Report Released Date/Time: Aug 23, 2023 02:28 PM Reporting Lab: [facility] [phone] Performing Lab: [facility] [phone] CREATININE 0.9 0.7-1.2 UREA NITROGEN 17 8-26 GLUCOSE 393 H 70-100 SODIUM 135 L 136-145 POTASSIUM 4.2 3.5-5.1 CHLORIDE 104 98-107 CO2 20 L 22-29 CALCIUM 8.7 8.4-10.2 MAGNESIUM 1.6 1.6-2.6 ANION GAP 11 5-15 .CREAT EGFR(CKD-EPI) >90 >60 Aug 02, 2023 02:10 PM [facility] METHYLMALONIC ACID Specimen Type: SERUM No comment entered. Ordering Provider: JOSSY NAVAS IE A Report Released Date/Time: Aug 02, 2023 01:46 PM Reporting Lab: [facility] [id number] Performing Lab: [facility] [address] METHYLMALONIC ACID 187 0-400 Aug 02, 2023 02:10 PM [facility] B 12 Specimen Type: SERUM No comment entered. Ordering Provider: JOSSY NAVAS IE A Report Released Date/Time: Aug 02, 2023 01:45 PM Reporting Lab: [facility] [phone] Performing Lab: [facility] [id number] B 12 607 213-816 Aug 02, 2023 02:10 PM [facility] VALPROIC ACID Specimen Type: SERUM No comment entered. Ordering Provider: JOSSY NAVAS IE A Report Released Date/Time: Aug 02, 2023 01:48 PM Reporting Lab: [facility] [id number] Performing Lab: [facility] [address] VALPROIC ACID 89.8 50.0-125.0 Aug 02, 2023 02:10 PM [facility] ELP/IMMFIX,SERUM PANEL Specimen Type: SERUM No comment entered. Ordering Provider: JOSSY NAVAS IE A Report Released Date/Time: Aug 02, 2023 01:45 PM Reporting Lab: [facility] [id number] Performing Lab: [facility] [phone] PROTEIN,TOTAL 6.4 6.0-8.3 .ALBUMIN FRACTION 3.63 L 3.66-4.78 .ALPHA 1 FRACTION 0.37 0.14-0.38 .ALPHA 2 FRACTION 0.65 0.50-0.90 .BETA 1 FRACTION 0.51 0.33-0.55 .BETA 2 FRACTION 0.46 0.20-0.52 .GAMMA FRACTION 0.79 0.58-1.72 .TOTAL PROTEIN 6.4 6.0-8.3 .INTERPRETATIO N NO MONOCLONALS DETECTED Aug 02, 2023 02:10 PM [facility] CBC Specimen Type: BLOOD No comment entered. Ordering Provider: JOSSY NAVAS A Report Released Date/Time: Aug 02, 2023 01:54 PM Reporting Lab: [facility] [id number] Performing Lab: [facility] [phone] WBC 6.45 4.0-11.0 RBC 4.87 4.6-6.2 HGB 14.4 13.5-17.9 HCT 41.6 41-54 MCV 85.4 80-100 MCH 29.6 27-33 MCHC 34.6 32.0-37.5 PLT 102 L 150-400 MPV 9.4 7.4-10.4 RDW 12.9 11.5-14.5 Immunizations: All administered on the encounter date This section contains immunizations associated to the Encounter. Immunization Series Date Issued Reaction Comments COVID-19 ([employer]), MRNA, LNP -S, PF, MAURICIO-SUCROSE, 30 MCG/0.3 ML (AGES 12+ YEARS) 1 Jul 30, 2023 ZOSTER RECOMBINANT 2 Jul 30, 2023 [email or web address] n Social History: Smoking Status (Most current) and Tobacco Use (All prior to encounter date) This section includes the most current, and the historical, smoking and tobacco- related health factors from the [place] facility where the Encounter took place. Current Smoking Status This section includes the most current smoking, or tobacco-related health factor, from the [place] facility where the Encounter took place. Date/Time Current Smoking Status Comment Facil meliy May 28, 2023 02:00 PM [place]-TOBACCO USER EVERY DAY [facility] ([facility]) Tobacco Use History This section includes a history of the smoking, or tobacco-related health factors, that were collected on or before the date of the Encounter. The data comes from the [place] facility where the Encounter took place. 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 [facility] ([facility]) Apr 05, 2020 11:00 AM VA-TOBACCO USE MED YES [facility] ([facility]) Apr 05, 2020 11:00 AM VA-TOBACCO USE WI 30 MIN OF WAKE UP [facility] ([facility]) Apr 05, 2020 11:00 AM VA-TOBACCO USER EVERY DAY [facility] ([facility]) Sep 14, 2016 01:52 PM FORMER [...] 2009 11:15 AM FORMER TOBACCO USE <1Y [facility] ([facility]) Jul 03, 2008 02:47 PM CURRENT TOBACCO USER [facility] ([facility]) Apr 20, 2008 09:01 PM PATIENT ADVISED TO QUIT TOBACCO [facility] Apr 20, 2008 09:01 PM PATIENT IS TOBACCO USER [facility] Apr 20, 2008 09:01 PM PATIENT REFERRED F OR TOBACCO CESSATION [facility] Apr 20, 2008 09:01 PM PATIENT WILLING TO QUIT TOBACCO [facility] Sep 20, 2007 01:28 PM FORMER TOBACCO USE <1Y [facility] ([facility]) Dec 04, 2006 11:00 AM FORMER TOBACCO USE <1Y [facility] ([facility]) Advance Directives: All historical and current Section Date Range: From patient's date of to the date document was created. This section includes ALL of a patient's completed or amended [place] Advance and Rescinded Directives. The entries below indicate that a directive exists for the patient, but an actual copy is not included with this document. The data comes from all [place] facilities. Date Advance Directives Provider Source December 24, 2003 ADVANCE DIRECTIVE ANTONIO OLVERA ([facility]) Aug 26, 2002 ADVANCE DIRECTIVE DILLON SILVA [facility] Encounter Notes: All associated encounter notes This section contains the clinical notes associated to the Encounter. 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 The patient was advised to remain in the facility for 15 minutes post vaccination. HERPES ZOSTER (SHINGLES) Recombinant zoster vaccine (Shingrix, RZV) dose #2 Administered: ZOSTER RECOMBINANT Date Administered: Jul 30, 2023 13:15 Series: Series 2 Business And Marketing Teacher: [employer] Lot: [id number] Exp Date: May 09, 2025 [facility]: [phone] Admin Route/Site: INTRAMUSCULAR/LEFT DELTOID Dosage: 0.5mL Vaccine Information Statement(s): RECOMBINANT ZOSTER VACCINE VIS Sep 16, 2021 (AMERICAN) Order By: Policy Administered By: Fidelia Miller Comment: [id number] Vaccine Information Sheet (VIS) was given to the patient/caregiver, education regarding adverse reactions was discussed, as well as barriers to learning, if any, were acknowledged. /es/ FIDELIA GARZA [facility] Signed: 07/30/2023 13:41 FIDELIA MILLER ([facility])
--- OUTSIDE RECORDS SUMMARY | 2023-09-05 12:32 | XMS_ITS | Encounter Summary ---
Author Name [facility] Organization [facility] Address [address] [facility] [place] [address] Support Name Relationship Address Phone AMBER GEORGE Next of Kin [address] [facility] A PT [address] [facility] [place] [address] MIGUEL GEORGE Emergency Contact [address] [address] [place] AMBER Next of Kin [address] [place] [address] Insurance Providers: All historical and current Section [...] AID (WNR) Jun 13, 2016 MEDICAI D [id number] [phone] STEVEN GEORGE PATIENT MEDICAID (WNR) MEDICAID MEDIC AID (WNR) Aug 13, 2001 MEDICAI D [id number] [phone] STEVEN GEORGE PATIENT MEDICARE (WNR) MEDICARE (M) PART A Jul 13, 2002 PART A [id number] [phone] STEVEN GEORGE PATIENT MEDICARE (WNR) MEDICARE (M) PART A Jul 13, 2002 PART A [id number] STEVEN GEORGE PATIENT MEDICARE (WNR) MEDICARE (M) PART B Jul 13, 2002 PART B [id number] [phone] STEVEN GEORGE PATIENT MEDICARE (WNR) MEDICARE (M) PART B Jul 13, 2002 PART B [id number] STEVEN GEORGE PATIENT MEDICARE (WNR) MEDICARE (M) PART B Jul 13, 2002 PART B [id number] [phone] STEVEN GEORGE PATIENT MEDICARE (WNR) MEDICARE (M) PART A Jul 13, 2002 PART A [id number] STEVNE GEORGE PATIENT Selected Encounter This section includes the information on record at [place] for the Encounter. Date/Time Encounter Type Encounter Description Reason Provider Source Aug 02, 2023 01:00 PM OFF/OP CONSLTJ NEW/EST HI 55 EPILE[employer] [facility] ICD-10-CM R25.1 Tremor, unspecified JOSSY NAVAS IE A [facility] Encounter Template Text not used by [place] Assessments - Encounter Diagnoses This section includes the primary and secondary diagnoses documented for the Encounter. Date/Time Primary/Secondary Diagnosis Diagnosis Name Provider Source Aug 03, 2023 05:33 PM PRIMARY Tremor, unspecified JOSSY NAVAS IE A [facility] Aug 03, 2023 05:33 PM SECONDARY Other spondylosis with myelopathy, cervical region JOSSY NAVAS IE A [facility] Aug 03, 2023 05:33 PM SECONDARY Type 2 diabetes mellitus with diabetic neuropathy, unsp JOSSY NAVAS IE A [facility] Aug 03, 2023 05:33 PM SECONDARY Unspecified convulsions JOSSY NAVAS IE A [facility] Plan of Treatment: Future Appointments (+ 6 months) and Future Tests (+/- 45 days) The Plan of Treatment section includes future care activities for the patient from all [place] treatmentfacilities. This section includes future appointments and future orders which are active, pending or scheduled. Future Appointments This section includes appointments that were scheduled to occur 6 months from the date of the Encounter, up to a maximum of 20 appointments. The data comes from all [place] treatment facilities. Appointment Date/Time Appointment Type Appointme nt Facility Name Aug 23, 2023 02:00 PM AMBULATORY - MEDICINE [facility] ([facility]) Oct 04, 2023 02:00 PM AMBULATORY - REHAB MEDICIN E [facility] Nov 22, 2023 02:00 PM AMBULATORY [...] of theEncounter. The data comes from all [place] treatment facilities. Test Date/Time Test Type Test Details Facility Name Aug 22, 2023 12:00 AM Imaging - Magnetic Resonance Imaging (MRI) Order MRI-C-SPINE (P) [facility] Aug 23, 2023 03:06 PM Consult Order DERMATOLOG Y OUTPT Cons [employer] [facility] ([facility]) Lab Results: +/- 30 days of the encounter This section includes the Chemistry and Hematology Lab Results on record with [place] for the patient. Radiology Reports and Pathology Reports are provided separately, in subsequent sections. Lab Results This section contains the Chemistry/Hematology Results that were resulted 30 days before or 30 daysafter the date of the Encounter. Date/Time Source Result Type Result - Unit Interpretation Reference Range Comment Aug 23, 2023 02:59 PM [facility] ([facility]) MICROALBUMIN/CREATININE RATIO URINE Specimen Type: URINE No comment entered. Ordering Provider: TOMMY IQBAL Report Released Date/Time: Aug 23, 2023 02:31 PM Reporting Lab: [facility] [id number] Performing Lab: [facility] [id number] CREATININE,UR RANDOM 229.8 H 58.0-161.0 ALB/CREAT RATIO,UR 8.6 <29.9 MICROALBUMIN,U R 19.8 <29.9 Aug 23, 2023 02:57 PM [facility]) POC URINALYSIS Specimen Type: URINE No comment entered. Ordering Provider: TOMMY IQBAL Report Released Date/Time: Aug 23, 2023 03:00 PM Reporting Lab: [facility] ([facility]) [address] [facility] [address] Performing Lab: [facility] ([facility]) [address] [place] [id number] POC URINE SG >=1.030 H 1.001-1 .03 [...] Turbid H Aug 23, 2023 02:44 PM [facility] ([facility]) TSH W/REFLEX TO FREE T4 Specimen Type: PLASMA Comment: Elevated triglyceride result from a non-fasting specimen should be interpreted with caution. A fasting panel is recommended for accurate triglycerides when trigs are >200 from a non-fasting specimen. Ordering Provider: TOMMY IQBAL Report Released Date/Time: Aug 23, 2023 02:28 PM Reporting Lab: [facility] [address] Performing Lab: [facility] [address] TSH 1.36 0.35-4.94 Aug 23, 2023 02:44 PM [facility] ([facility]) HEMOGLOBIN A1C Specimen Type: BLOOD Comment: [...] Aug 23, 2023 02:28 PM Reporting Lab: [facility] [address] Performing Lab: [facility] [address] HEMOGLOBIN A1C 8.3 H 4.0-6.0 Aug 23, 2023 02:44 PM [facility] ([facility]) LIPID PANEL,NON-FASTING Specimen Type: PLASMA Comment: Elevated triglyceride result from a non-fasting specimen should be interpreted with caution. A fasting panel is recommended for accurate triglycerides when trigs are >200 from a non-fasting specimen. Ordering Provider: TOMMY IQBAL Report Released Date/Time: Aug 23, 2023 02:28 PM Reporting Lab: [facility] [address] Performing Lab: [facility] [address] CHOLESTEROL 202 H <199 .HDL 34 L >40 LDL CALCULATION 123 H <99 VLDL CALCULATION 45 H <29 NON HDL CHOLESTEROL 168 H <129 TRIG(NON FASTING) 225 H <149 Aug 23, 2023 02:44 PM [facility] ([facility]) BASIC METABOLIC PANEL+MG Specimen Type: PLASMA Comment: Elevated triglyceride result from a non-fasting specimen should be interpreted with caution. A fasting panel is recommended for accurate triglycerides when trigs are >200 from a non-fasting specimen. Ordering Provider: TOMMY IQBAL Report Released Date/Time: Aug 23, 2023 02:28 PM Reporting Lab: [facility] [address] Performing Lab: [facility] [address] CREATININE 0.9 0.7-1.2 UREA NITROGEN 17 8-26 GLUCOSE 393 H 70-100 SODIUM 135 L 136-145 POTASSIUM 4.2 3.5-5.1 CHLORIDE 104 98-107 CO2 20 L 22-29 CALCIUM 8.7 8.4-10.2 MAGNESIUM 1.6 1.6-2.6 ANION GAP 11 5-15 .CREAT EGFR(CKD-EPI) >90 >60 Aug 02, 2023 02:10 PM [facility] METHYLMALONIC ACID Specimen Type: SERUM No comment entered. Ordering Provider: JOSSY NAVAS IE A Report Released Date/Time: Aug 02, 2023 01:46 PM Reporting Lab: [facility] [address] Performing Lab: [facility] [address] METHYLMALONIC ACID 187 0-400 Aug 02, 2023 02:10 PM [facility] B 12 Specimen Type: SERUM No comment entered. Ordering Provider: JOSSY NAVAS IE A Report Released Date/Time: Aug 02, 2023 01:45 PM Reporting Lab: [facility] [address] Performing Lab: [facility] [address] B 12 349 213-936 Aug 02, 2023 02:10 PM [facility] VALPROIC ACID Specimen Type: SERUM No comment entered. Ordering Provider: JOSSY NAVAS IE A Report Released Date/Time: Aug 02, 2023 01:48 PM Reporting Lab: [facility] [address] Performing Lab: [facility] [address] VALPROIC ACID 89.8 50.0-125.0 Aug 02, 2023 02:10 PM [facility] ELP/IMMFIX,SERUM PANEL Specimen Type: SERUM No comment entered. Ordering Provider: JOSSY NAVAS IE A Report Released Date/Time: Aug 02, 2023 01:45 PM Reporting Lab: [facility] [address] Performing Lab: [facility] [address] PROTEIN,TOTAL 6.4 6.0-8.3 .ALBUMIN FRACTION 3.63 L 3.66-4.78 .ALPHA 1 FRACTION 0.37 0.14-0.38 .ALPHA 2 FRACTION 0.65 0.50-0.90 .BETA 1 FRACTION 0.51 0.33-0.55 .BETA 2 FRACTION 0.46 0.20-0.52 .GAMMA FRACTION 0.79 0.58-1.72 .TOTAL PROTEIN 6.4 6.0-8.3 .INTERPRETATIO N NO MONOCLONALS DETECTED Aug 02, 2023 02:10 PM [facility] CBC Specimen Type: BLOOD No comment entered. Ordering Provider: JOSSY NAVAS A Report Released Date/Time: Aug 02, 2023 01:54 PM Reporting Lab: [facility] [address] Performing Lab: [facility] [address] WBC 6.45 4.0-11.0 RBC 4.87 4.6-6.2 HGB 14.4 13.5-17.9 HCT 41.6 41-54 MCV 85.4 80-100 MCH 29.6 27-33 MCHC 34.6 32.0-37.5 PLT 102 L 150-400 MPV 9.4 7.4-10.4 RDW 12.9 11.5-14.5 Social History: Smoking Status (Most current) and Tobacco Use (All prior to encounter date) This section includes the most current, and the historical, smoking and tobacco- related health factors from the [place] facility where the Encounter took place. Current Smoking Status This section includes the most current smoking, or tobacco-related health factor, from the [place] facility where the Encounter took place. Date/Time Current Smoking Status Comment Alice barkley Aug 05, 2017 02:25 PM INPT TOBACCO COUNSELING [facility] Tobacco Use History This section includes a history of the smoking, or tobacco-related health factors, that were collected on or before the date of the Encounter. The data comes from the [place] facility where the Encounter took place. Date/Time Smoking Status/Tobacco Use Comment F acility Aug 05, 2017 02:25 PM INPT TOBACCO USER M [facility] Aug 03, 2017 03:37 PM INPT TOBACCO COUNSELING [facility] Aug 03, 2017 03:37 PM INPT TOBACCO USER Jamia [facility] Jul 27, 2017 08:25 PM INPT TOBACCO COUNSELING [facility] Jul 27, 2017 08:25 PM INPT TOBACCO USER [facility] Nov 11, 2013 11:21 AM LIFETIME NON-TOBACCO USER [facility] Apr 20, 2008 09:01 PM PATIENT ADVISED TO QUIT TOBACCO [facility] Apr 20, 2008 09:01 PM PATIENT IS TOBACCO USER [facility] Apr 20, 2008 09:01 PM PATIENT REFERRED F OR TOBACCO CESSATION [facility] Apr 20, 2008 09:01 PM PATIENT WILLING TO QUIT TOBACCO [facility] Advance Directives: All historical and current Section Date Range: From patient's date of to the date document was created. This section includes ALL of a patient's completed or amended [place] Advance and Rescinded Directives. The entries below indicate that a directive exists for the patient, but an actual copy is not included with this document. The data comes from all [place] facilities. Date Advance Directives Provider Source December 24, 2003 ADVANCE DIRECTIVE ANTONIO OLVERA ([facility]) Aug 26, 2002 ADVANCE DIRECTIVE DILLON SILVA [facility] Encounter Notes: All associated encounter notes This section contains the clinical notes associated to the Encounter. Date/Time Encounter Note(s) Provider Source Aug 02, 2023 01:59 PM NEUROLOGY CONSULT: LOCAL TITLE: NEUROLOGY CONSULT STANDARD TITLE: NEUROLOGY CONSULT DATE OF NOTE: AUG 02, 2023@13:59 ENTRY DATE: AUG 02, 2023@13:59:32 AUTHOR: LUPE NAVAS COSIGNER: URGENCY: STATUS: COMPLETED SUBJECT: Neurology HPI: STEVEN GEORGE is a 73 year old with past medical history significant for bipolar disorder, type 2 diabetes mellitus with neuropathy, congestive heart failure with A. fib, possible seizure disorder, cervical myelopathy SP C3-C7 and laminectomies and fusion 1995 who presents for neurologic evaluation. Consult notes that is concerned about Parkinson's disease and request evaluation. In reports to me, he describes shakes and that his feet are not working. Trouble eating due to shaking. Reports he is no longer using alcohol. he is taking divalproex for seizures, although that history is limited and he tells me he does not believe he has seizures. Complex neurologic history, and chart shows that he was evaluated in neurology for gait changes in 2006. He had been seen at [facility] in 2005 with extensive work-up per that note. Notable history laminectomies and fusion C3-C7 for cervical myelopathy in 1995 and notes reference an EMG that showed evidence of peripheral neuropathy. He had also undergone autonomic testing at [facility], no autonomic failure was noted per notes. MRI cervical spine 2005 with [facility] with no new changes in the spinal cord. He also had a comprehensive evaluation for gait problems at [facility] at that time. His walking symptoms have been progressively worse, and he feels diffusely weak. In terms of seizure history, he reports he recently underwent a inpatient evaluation. I was able to find reference of this in [facility]. [facility] admission 06/27/2023 to 06/30/2023 for an episode of unresponsiveness. Per notes he was described to be tensing up and then relaxing with hyperventilating. Per [facility] note, endorsed dizziness, lightheadedness and sweating and 130s events was witnessed when he was transferred in the emergency department, reportedly unresponsive and going limp for 30 seconds to 1 minute before returning to normal without a postictal phase. Considerations for seizures, orthostasis with normal blood pressure, and arrhythmia. EEG was performed and normal. Depakote level was found to be low 13. 6 on admission and lactate was minimally elevated to 3 on admission. He was also evaluated by the epilepsy group during his admission, per their notes, he has undergone multiple EEGs, normal or slightly slow background in the past. They noted in EEG [facility] 2005, with findings of multiple events right arm shaking with unresponsiveness, bilateral lower extremity shaking with right arm shaking and unresponsiveness and sitting up in chair then slumping unresponsive for 5 seconds, these were captured on EEG and there was no epileptiform activity. Notes reference that he was placed on Depakote 500 in the morning at thousand at night for bipolar disorder. When I asked him about this, he is unable to tell me about his seizures, he does not remember the details of his admission to [facility]. He doubts that he has epilepsy. Past Medical History: Active problems - Computerized Problem List is the source for the followin. Hypertension (SNOMED CT 14052177) 2. Chronic low back pain 3. Cervical spondylosis with myelopathy - S/P C2-7 decompression with C5-7 fusion in 1999 4. Hypothyroidism 5. Diabetic neuropathy (SNOMED CT 998788439) 6. Sleep apnea 7. Hyperlipidemia (SNOMED CT 00269312) 8. Edema - acute lower extremity bilateral - multifactorial 9. 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 Chest Pain * 12. Anemia - GI work up ordered at [facility] 07/2012 13. Alcohol dependence (SNOMED CT 89120974) 14. Histrionic personality disorder (SNOMED CT 14798544) 15. Bipolar affective disorder, currently depressed, moderate Social History/Family History: Living in assisted living, quit drinking alcohol. Medications: Active Outpatient Medications (including Supplies): Active Non-VA Medications Status 1) Non-VA ACETAMINOPHEN TAB 1000 MG MOUTH EVERY 6 HOURS ACTIVE NEEDED 2) Non-VA ALBUTEROL 90MCG (CFC-F) 200D ORAL INHL 2 PUFFS ACTIVE INHALATION EVERY 6 HOURS NEEDED 3) Non-VA ALBUTEROL SO4 0.083% INHL 3ML 3ML INHALATION ACTIVE EVERY 8 HOURS NEEDED 4) Non-VA DIVALPROEX NA 125MG SPRINKLE CAP 250MG MOUTH ACTIVE TWICE A DAY 5) Non-VA DOCUSATE NA 50MG/SENNOSIDES 8.6MG TAB 1 TABLET ACTIVE MOUTH TWICE A DAY NEEDED 6) Non-VA FAMOTIDINE 20MG TAB 20MG MOUTH EVERY DAY ACTIVE 7) Non-VA HALOPERIDOL 1MG TAB 1MG MOUTH EVERY 4 HOURS ACTIVE NEEDED 8) Non-VA HYOSCYAMINE SULFATE 0.125MG TAB 0.125MG MOUTH ACTIVE EVERY 4 HOURS NEEDED 9) Non-VA INSULIN GLARGINE 100UNIT/ML INJ 40 UNITS UNDER ACTIVE THE SKIN TWICE A DAY 10) Non-VA KETOCONAZOLE 2% CREAM THIN LAYER TWICE A ACTIVE DAY NEEDED 11) Non-VA KETOCONAZOLE SHAMPOO NEEDED ACTIVE 12) Non-VA LORAZEPAM 0.5MG TAB 0.5MG MOUTH EVERY 4 HOURS ACTIVE NEEDED 13) Non-VA MORPHINE TAB,IR MORPHINE SOLUBE TAB 10MG ACTIVE TWICE A DAY 14) Non-VA MORPHINE TAB,IR MORPHINE SOLUBE TAB 5MG EVERY ACTIVE 3 HOURS NEEDED 15) Non-VA NITROGLYCERIN 0.4MG SL TAB 0.4MG UNDER THE ACTIVE TONGUE NEEDED 16) Non-VA ONDANSETRON HCL 4MG TAB 4MG MOUTH EVERY 8 ACTIVE HOURS NEEDED 17) Non-VA PRAZOSIN HCL 5MG CAP 10MG MOUTH AT BEDTIME ACTIVE 18) Non-VA SPIRONOLACTONE 25MG TAB 50MG MOUTH EVERY DAY ACTIVE Allergies: SULFA DRUGS (December 11, 2005) GABAPENTIN (Feb 01, 2017) EXAM: General appearance: Wheelchair Neurologic Exam: Mental: Patient is alert and attentive. Did not perform memory screen. Speech is fluent and comprehension intact. Patient follows all commands. Cranial Nerves: EOMI with intermittent broken saccades including upgaze. Tongue midline. Face symmetric. Hearing intact. No dysarthria. Motor: Questionable increased tone left upper extremity, variable on examination. Variable finger tapping on the left. No resting tremor. Postural tremor bilateral hands. Pronator drift assessment appeared highly effortful, but there as no pronation. Strength assessment is variable, appears to have true weakness on the left proximal and distal upper and lower extremity, there was give away weakness as well; right with give away weakness, and some bursts of full strength as well including dorsiflexion. Sensory: Absent vibration in the feet and ankle bilaterally, reduced at the patellar 6-7 seconds. Pinprick was reduced diffusely including face, arms and legs, but maximal in the legs. Light touch reduced in the legs and feet. Reflexes: Diffusely hyporeflexic throughout, unable to elicit in patellar and achilles. No clonus and toes were mute. Coordination: Mild intention tremor R > L Gait: Uses walker, came in wheelchair, stance is unsteady. ASSESSMENT AND PLAN: STEVEN GEORGE is a 73 year old with past medical history significant for bipolar disorder, type 2 diabetes mellitus with neuropathy, congestive heart failure with A. fib, possible seizure disorder, cervical myelopathy SP C3-C7 and laminectomies and fusion 1995 who presents for neurologic evaluation. 1. Tremors He had postural tremor bilateral hands, with mild intention tremor right greater than left. Possibly a component of essential tremor, but some variability in tremor on evaluation and divalproex can contribute to tremor as well. I did not find evidence of parkinsonism on his examination. Could consider weighted utensils to help with eating. Divalproex is used predominantly for bipolar disorder per my review of notes. -Consider weighted utensils 2. Diabetic peripheral neuropathy 3. Cervical myelopathy s/p C3-7 fusion and laminectomy His main concern today is related to his feet and walking. He has known diabetic peripheral neuropathy with abnormal EMG nearly 15 years ago, additionally he has history of myelopathy. On examination, he does appear to have weakness possibly more on the left than the right, but there was giveaway component. Even small activities were highly effortful on exam. Difficult to understand the degree of his true weakness. Given his myelopathy and peripheral neuropathy, I suspect that his gait is unstable. He tells me he is receiving physical therapy at his assisted living, I recommend he continue this. With his history of cervical myelopathy, reasonable to repeat cervical MRI imaging. - MRI c-spine - SPEP and B12/MMA today - Continue physical therapy at assisted living 4. History of nonepileptic events Chart reviewed references nonepileptic events, captured on epilepsy monitoring in the past. Depakote appears predominantly for mental health. Of note, platelets low in the past on Depakote, upper 90s and low 100s. I will recheck a level today and CBC, level as it was low during his recent admission to [facility]. Regardless Depakote would provide protection against epileptic seizures well. -Valproic acid level -CBC We covered a lot today, extensive records in the chart and I would like to see him back in 2 months. Reassess his examination in the setting of suspected true weakness but also giveaway weakness. I spent 60 minutes in total care including examination, assessment and plan. Lupe Navas MD /karrie/ LUPE NAVAS MD Physician Signed: 08/03/2023 17:33 LUPE NAVAS [facility]
--- OUTSIDE RECORDS SUMMARY | 2023-09-05 12:32 | XMS_ITS | Encounter Summary ---
Author Name [facility] Organization [facility] Address [address] [place] [address] Support Name Relationship Address Phone AMBER GEORGE Next of Kin [address] [facility] A PT [address] [facility] [place] [address] MIGUEL GEORGE Emergency Contact [address] [place] [address] HAOKARRIE AMBER Next of Kin [address] [place] [address] Insurance Providers: All historical and current Section [...] AID (WNR) Jun 13, 2016 MEDICAI D [id number] [phone] STEVEN GEORGE PATIENT MEDICAID (WNR) MEDICAID MEDIC AID (WNR) Aug 13, 2001 MEDICAI D [id number] [phone] STEVEN GEORGE PATIENT MEDICARE (WNR) MEDICARE (M) PART A Jul 13, 2002 PART A [id number] STEVEN GEORGE PATIENT MEDICARE (WNR) MEDICARE (M) PART B Jul 13, 2002 PART B [id number] [phone] STEVEN GEORGE PATIENT MEDICARE (WNR) MEDICARE (M) PART B Jul 13, 2002 PART B [id number] STEVEN GEORGE PATIENT MEDICARE (WNR) MEDICARE (M) PART A Jul 13, 2002 PART A [id number] STEVEN GEORGE PATIENT MEDICARE (WNR) MEDICARE (M) PART A Jul 13, 2002 PART A [id number] STEVEN GEORGE PATIENT MEDICARE (WNR) MEDICARE (M) PART B Jul 13, 2002 PART B [id number] STEVEN GEORGE PATIENT Selected Encounter This section includes the information on record at NE for the Encounter. Date/Time Encounter Type Encounter Description Reason Provider Source Aug 23, 2023 02:00 PM OFFICE O/P EST MOD 30 MIN PRIMARY CARE/MEDICINE ICD-10-CM L98.9 Disorder of the skin and subcutaneous tissue, unspecified JUAQUIN RADER Deo Encounter Template Text not used by NE Assessments - Encounter Diagnoses This section includes the primary and secondary diagnoses documented for the Encounter. Date/Time Primary/Secondary Diagnosis Diagnosis Name Provider Source Aug 23, 2023 04:00 PM PRIMARY Disorder of the skin and subcutaneous tissue, unspecified JUAQUIN RADER ([facility]) Aug 23, 2023 04:00 PM SECONDARY Essential (primary) hypertension JUAQUIN RADER ([facility]) Aug 23, 2023 04:00 PM SECONDARY Hyperlipidemia, unspecified JUAQUIN RADER ([facility]) Aug 23, 2023 04:00 PM SECONDARY Hypothyroidism, unspecified JUAQUIN RADER ([facility]) Aug 23, 2023 04:00 PM SECONDARY Type 2 diabetes mellitus with diabetic neuropathy, unsp JUAQUIN RADER ([facility]) Aug 23, 2023 04:00 PM SECONDARY 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 This section includes future appointments and future orders which are active, pending or scheduled. Future Appointments This section includes appointments that were scheduled to occur 6 months from the date of the Encounter, up to a maximum of 20 appointments. The data comes from all [place] treatment facilities. Appointment Date/Time Appointment Type Appointme nt Facility Name Oct 04, 2023 02:00 PM AMBULATORY - REHAB [facility] Nov 22, 2023 02:00 PM AMBULATORY - MEDICINE [facility] ([facility]) Active, Pending, and Scheduled Orders This section includes a listing of several types of active, pending, and scheduled orders, including clinic medications orders, diagnostic test orders, procedure orders and consult orders; where the start date of the order is 45 days before the date of the Encounter or 45 days after the date of theEncounter. The data comes from all NE treatment facilities. Test Date/Time Test Type Test Details Facility Name Aug 22, 2023 12:00 AM Imaging - Magnetic Resonance Imaging (MRI) Order MRI-C-SPINE (P) [facility] Aug 23, 2023 03:06 PM Consult Order DERMATOLOG Y OUTPT Cons [facility] [place] ([facility]) Lab Results: +/- 30 days of the encounter This section includes the Chemistry and Hematology Lab Results on record with NE for the patient. Radiology Reports and Pathology Reports are provided separately, in subsequent sections. Lab Results This section contains the Chemistry/Hematology Results that were resulted 30 days before or 30 daysafter the date of the Encounter. Date/Time Source Result Type Result - Unit Interpretation Reference Range Comment Aug 23, 2023 02:59 PM [facility] ([facility]) MICROALBUMIN/CREATININE RATIO URINE Specimen Type: URINE No comment entered. Ordering Provider: JUAQUIN RADER Report Released Date/Time: Aug 23, 2023 02:31 PM Reporting Lab: [facility] [id number] Performing Lab: [facility] [id number] CREATININE,UR RANDOM 229.8 H 58.0-161.0 ALB/CREAT RATIO,UR 8.6 <29.9 MICROALBUMIN,U R 19.8 <29.9 Aug 23, 2023 02:57 PM [place] ([facility]) POC URINALYSIS Specimen Type: URINE No comment entered. Ordering Provider: JUAQUIN RADER Report Released Date/Time: Aug 23, 2023 03:00 PM Reporting Lab: [facility] ([facility]) [address] [place] [phone] Performing Lab: [facility]) [address] [place] [phone] POC URINE SG >=1.030 H 1.001-1 .03 [...] Turbid H Aug 23, 2023 02:44 PM [place] ([facility]) TSH W/REFLEX TO FREE T4 Specimen Type: PLASMA Comment: Elevated triglyceride result from a non-fasting specimen should be interpreted with caution. A fasting panel is recommended for accurate triglycerides when trigs are >200 from a non-fasting specimen. Ordering Provider: JUAQUIN RADER Report Released Date/Time: Aug 23, 2023 02:28 PM Reporting Lab: [facility] [phone] Performing Lab: [facility] [address] TSH 1.36 0.35-4.94 Aug 23, 2023 02:44 PM [place] ([facility]) HEMOGLOBIN A1C Specimen Type: BLOOD Comment: Values obtained from A1C measurements can vary. For typical A1C assays, a reported value of 7.0 could actually be between 6.7 and 7.3 if measured by a reference method. A reported value of 9.0 could actually be between 8.7 and 9.3. Ref: http://www.ngs p.org/CAPdata. asp Ordering Provider: JUAQUIN RADER Report Released Date/Time: Aug 23, 2023 02:28 PM Reporting Lab: [facility] [address] Performing Lab: [facility] [address] HEMOGLOBIN A1C 8.3 H 4.0-6.0 Aug 23, 2023 02:44 PM [place] ([facility]) LIPID PANEL,NON-FASTING Specimen Type: PLASMA Comment: Elevated triglyceride result from a non-fasting specimen should be interpreted with caution. A fasting panel is recommended for accurate triglycerides when trigs are >200 from a non-fasting specimen. Ordering Provider: JUAQUIN RADER Report Released Date/Time: Aug 23, 2023 02:28 PM Reporting Lab: [facility] [id number] Performing Lab: [facility] [address] CHOLESTEROL 202 H <199 .HDL 34 L >40 LDL CALCULATION 123 H <99 VLDL CALCULATION 45 H <29 NON HDL CHOLESTEROL 168 H <129 TRIG(NON FASTING) 225 H <149 Aug 23, 2023 02:44 PM [place] ([facility]) BASIC METABOLIC PANEL+MG Specimen Type: PLASMA Comment: Elevated triglyceride result from a non-fasting specimen should be interpreted with caution. A fasting panel is recommended for accurate triglycerides when trigs are >200 from a non-fasting specimen. Ordering Provider: JUAQUIN ARDER Report Released Date/Time: Aug 23, 2023 02:28 PM Reporting Lab: [facility] [address] Performing Lab: [facility] [address] CREATININE 0.9 0.7-1.2 UREA NITROGEN 17 8-26 GLUCOSE 393 H 70-100 SODIUM 135 L 136-145 POTASSIUM 4.2 3.5-5.1 CHLORIDE 104 98-107 CO2 20 L 22-29 CALCIUM 8.7 8.4-10.2 MAGNESIUM 1.6 1.6-2.6 ANION GAP 11 5-15 .CREAT EGFR(CKD-EPI) >90 >60 Aug 02, 2023 02:10 PM [facility] METHYLMALONIC ACID Specimen Type: SERUM No comment entered. Ordering Provider: JOSSY NAVAS IE A Report Released Date/Time: Aug 02, 2023 01:46 PM Reporting Lab: [facility] [phone] Performing Lab: [facility] [address] METHYLMALONIC ACID 187 0-400 Aug 02, 2023 02:10 PM [facility] B 12 Specimen Type: SERUM No comment entered. Ordering Provider: JOSSY NAVAS IE A Report Released Date/Time: Aug 02, 2023 01:45 PM Reporting Lab: [facility] [address] Performing Lab: [facility] [address] B 12 [phone] Aug 02, 2023 02:10 PM [facility] VALPROIC ACID Specimen Type: SERUM No comment entered. Ordering Provider: JOSSY NAVAS IE A Report Released Date/Time: Aug 02, 2023 01:48 PM Reporting Lab: [facility] [address] Performing Lab: [facility] [address] VALPROIC ACID 89.8 50.0-125.0 Aug 02, 2023 02:10 PM [facility] ELP/IMMFIX,SERUM PANEL Specimen Type: SERUM No comment entered. Ordering Provider: JOSSY NAVAS IE A Report Released Date/Time: Aug 02, 2023 01:45 PM Reporting Lab: [facility] [address] Performing Lab: [facility] [address] PROTEIN,TOTAL 6.4 6.0-8.3 .ALBUMIN FRACTION 3.63 L 3.66-4.78 .ALPHA 1 FRACTION 0.37 0.14-0.38 .ALPHA 2 FRACTION 0.65 0.50-0.90 .BETA 1 FRACTION 0.51 0.33-0.55 .BETA 2 FRACTION 0.46 0.20-0.52 .GAMMA FRACTION 0.79 0.58-1.72 .TOTAL PROTEIN 6.4 6.0-8.3 .INTERPRETATIO N NO MONOCLONALS DETECTED Aug 02, 2023 02:10 PM [facility] CBC Specimen Type: BLOOD No comment entered. Ordering Provider: JOSSY NAVAS A Report Released Date/Time: Aug 02, 2023 01:54 PM Reporting Lab: [facility] [address] Performing Lab: [facility] [address] WBC 6.45 4.0-11.0 RBC 4.87 4.6-6.2 HGB 14.4 13.5-17.9 HCT 41.6 41-54 MCV 85.4 80-100 MCH 29.6 27-33 MCHC 34.6 32.0-37.5 PLT 102 L 150-400 MPV 9.4 7.4-10.4 RDW 12.9 11.5-14.5 Vital Signs: All taken on the encounter date This section contains inpatient and outpatient Vital Signs collected on the date of the Encounter. Date/Time Temperature Pulse Blood Pressure Respiratory Rate SP02 Pain Height Weight Body Mass Index Source Aug 23, 2023 02:07 PM 98.2 F 86 /min 154/85 mm[Hg] 14 /min 95 % 0 240 lb 34 [facility] ([facility]) Social History: Smoking Status (Most current) and Tobacco Use (All prior to encounter date) This section includes the most current, and the historical, smoking and tobacco- related health factors from the NE facility where the Encounter took place. Current Smoking Status This section includes the most current smoking, or tobacco-related health factor, from the NE facility where the Encounter took place. Date/Time Current Smoking Status Comment Facil ity May 28, 2023 02:00 PM VA-TOBACCO USE 30 YEARS OR MORE [facility] [facility] ([facility]) Tobacco Use History This section includes a history of the smoking, or tobacco-related health factors, that were collected on or before the date of the Encounter. The data comes from the NE facility where the Encounter took place. Date/Time Smoking Status/Tobacco Use Comment F acility May 28, 2023 02:00 PM VA-TOBACCO USE 30 YEARS OR MORE [facility] [facility] ([facility]) May 28, 2023 02:00 PM VA-TOBACCO USE ADVICE [facility] ([facility]) May 28, 2023 02:00 PM VA-TOBACCO USE ENVELOPE FOLDER NO [facility] ([facility]) May 28, 2023 02:00 PM VA-TOBACCO USE MED NO [facility] ([facility]) May 28, 2023 02:00 PM VA-TOBACCO USER EVERY DAY [facility] [facility] ([facility]) Apr 05, 2020 11:00 AM VA-TOBACCO USE 30 YEARS OR MORE [facility] [facility] ([facility]) Apr 05, 2020 11:00 AM VA-TOBACCO USE ADVICE [place] ([facility]) Apr 05, 2020 11:00 AM VA-TOBACCO USE ENVELOPE FOLDER YES [place] ([facility]) Apr 05, 2020 11:00 AM VA-TOBACCO USE MED YES [place] ([facility]) Apr 05, 2020 11:00 AM VA-TOBACCO USE WI 30 MIN OF WAKE UP [facility] ([facility]) Apr 05, 2020 11:00 AM VA-TOBACCO USER EVERY DAY [place] ([facility]) Sep 14, 2016 01:52 PM FORMER TOBACCO USER 7Y OR GREATE R [facility] ([facility]) Nov 29, 2015 01:04 PM FORMER TOBACCO USER 7Y OR GREATE R [facility] ([facility]) Nov 20, 2014 12:05 PM FORMER TOBACCO USER 7Y OR GREATE R [facility] ([facility]) Jul 07, 2013 10:54 AM FORMER TOBACCO USE >1Y <7Y [facility] ([facility]) Jul 18, 2012 01:08 PM FORMER TOBACCO USE >1Y <7Y [facility] ([facility]) Sep 26, 2011 01:22 PM FORMER TOBACCO USE >1Y <7Y [facility] ([facility]) December 23, 2010 03:00 PM FORMER TOBACCO USE >1Y <7Y [facility] ([facility]) Feb 09, 2010 10:49 AM FORMER TOBACCO USE >1Y <7Y [facility] [facility] ([facility]) May 06, 2009 11:15 AM FORMER TOBACCO USE <1Y [facility] ([facility]) Jul 03, 2008 02:47 PM CURRENT TOBACCO USER [facility] ([facility]) Apr 20, 2008 09:01 PM PATIENT ADVISED TO QUIT TOBACCO [facility] Apr 20, 2008 09:01 PM PATIENT IS TOBACCO USER [facility] Apr 20, 2008 09:01 PM PATIENT REFERRED F OR TOBACCO CESSATION [facility] Apr 20, 2008 09:01 PM PATIENT WILLING TO QUIT TOBACCO [facility] Sep 20, 2007 01:28 PM FORMER TOBACCO USE <1Y [facility] [facility] ([facility]) Dec 04, 2006 11:00 AM FORMER TOBACCO USE <1Y [facility] ([facility]) Advance Directives: All historical and current Section Date Range: From patient's date of to the date document was created. This section includes ALL of a patient's completed or amended NE Advance and Rescinded Directives. The entries below indicate that a directive exists for the patient, but an actual copy is not included with this document. The data comes from all [place] facilities. Date Advance Directives Provider Source December 24, 2003 ADVANCE DIRECTIVE ANTONIO OLVERA ([facility]) Aug 26, 2002 ADVANCE DIRECTIVE [facility] Encounter Notes: All associated encounter notes This section contains the clinical notes associated to the Encounter. Date/Time Encounter Note(s) Provider Source Aug 27, 2023 02:36 PM REPORT OF CONTACT: LOCAL TITLE: PATIENT CONTACT NOTE STANDARD TITLE: REPORT OF CONTACT DATE OF NOTE: AUG 27, 2023@14:36 ENTRY DATE: AUG 27, 2023@14:36:46 AUTHOR: JUAQUIN RADER COSIGNER: URGENCY: STATUS: COMPLETED PATIENT CONTACT NOTE Has ADDENDA Please see result letter and contact the patient. will also need his current medication list since he is no longer on hospice and wants us to manage his diabetes. please also check if he needs to get back to for bipolar disorder medications. /suzanne Rader MD Physician [facility] Signed: 08/27/2023 14:39 Receipt Acknowledged By: 09/05/2023 08:40 /karrie/ Kevin Serrano RN [facility] 08/31/2023 ADDENDUM STATUS: COMPLETED Attempted to call . Will attempt again at a later time. /karrie/ Kevin Serrano RN [facility] Signed: 08/31/2023 12:11 09/03/2023 ADDENDUM STATUS: COMPLETED Attempted to call . Will attempt again at a later time. /karrie/ Kevin Serrano RN [facility] Signed: 09/03/2023 08:14 09/05/2023 ADDENDUM STATUS: COMPLETED Attempted to call . General message left on non self-identifying VM, requesting call PACT back via Call Center. Call Center phone number verbalized for . Attempted to call 's daughter (ANA on file). She did not answer and VM was not self-identifying. /karrie/ Kevin Serrano RN [facility] Signed: 09/05/2023 08:42 JUAQUNI RADER [place] ([facility]) Aug 27, 2023 02:29 PM LETTERS: LOCAL TITLE: FOLLOW UP RESULTS LETTER STANDARD TITLE: LETTERS DATE OF NOTE: AUG 27, 2023@14:29 ENTRY DATE: AUG 27, 2023@14:29:50 AUTHOR: JUAQUIN RADER EXP COSIGNER: URGENCY: STATUS: COMPLETED [facility] [address] [place] [address] Aug STEVEN GEORGE [address] [place] [address] Dear [place]: I am writing to inform you of the results of the tests you had done at the [facility]. The tests below were performed and are satisfactory unless otherwise noted. - Cholesterol Tests (HDL = good and LDL = bad) CHOLESTEROL 202 H (08/23/23) (prefer less than 200) TRIGLYCERIDE____ (prefer less than 150) HDL 34 L (08/23/23) (prefer more than 39) LDL CALCULATION 123 H (08/23/23) (prefer less than 100) - Complete Blood Count (red/white blood cell counts and platelets) White count: WBC 6.45 (08/02/23) (normal is 4.0-11.0) Hemoglobin: HGB 14.4 (08/02/23) (normal Male is 13.5-17.9) (normal Female is 11.5-16) Hematocrit: HCT 41.6 (08/02/23) (normal Male is 41-54) (normal Female is 34.5-48) Platelets: PLT 102 L (08/02/23) (normal is 150-400) - Electrolytes including sodium and potassium SODIUM 135 L (08/23/23) (normal is 137-144) POTASSIUM 4.2 (08/23/23) (normal is 3.5-5.0) CHLORIDE 104 (08/23/23) (normal is 98-107) CO2 20 L (08/23/23) (normal is 22-29) UREA NITROGEN 17 (08/23/23) (normal Male is 8-26) (normal Female is 8-20) CREATININE 0.9 (08/23/23) (normal Male is 0.7-1.2) (normal Female is 0.5-1.0) GLUCOSE 393 H (08/23/23) (normal is 70-105) CALCIUM 8.7 (08/23/23) (normal is 8.4-10.2) MAGNESIUM 1.6 (08/23/23) (normal is 1.6-2.6) CREATININE EGFR (CKD-EPI) 08/23/23 @ 1444 >90 (normal is >/=60) - Glycosylated Hemoglobin (good diabetic control if less than 7.0) HEMOGLOBIN A1C 8.3 H (08/23/23) (normal range is 4.0-6.0) - Thyroid Function: TSH 1.36 (08/23/23) (normal 0.3-4.94) Collection time: Aug 23, 2023@14:59 Test Name Result Units Range --------- ------ ----- ----- MICROALBUMIN,UR 19.8 mg/L Ref: <=29.9 CREATININE,UR RANDOM 229.8 H mg/dL 58.0 - 161.0 ALB/CREAT RATIO,UR 8.6 mg/g creat Ref: <=29.9 Comments: A1C 8.3, not too bad, random glucose 393 is high. continue lantus insulin and may add either premeal short acting insulin or add glipizide to control after meal blood sugar. please let us know which one you prefer. will need to check blood sugar before 3 meals if you prefer adding short acting insulin before meals. cholesterol level is high thyroid function is normal. I am not sure if you stayed off levothyroxine or back on it. if off, no need to add back, if you are on it, continue then. please have your facility to send us your current medication list so we can adjust your medications. If you have any further questions or problems, please contact our nursing staff or me at the following number: Sincerely, Juaquin Rader MD Physician [facility] JUAQUIN RADER ([facility]) Aug 23, 2023 02:22 PM PRIMARY CARE NOTE: LOCAL TITLE: [facility] PROGRESS NOTE-[facility] STANDARD TITLE: PRIMARY CARE NOTE DATE OF NOTE: AUG 23, 2023@14:22 ENTRY DATE: AUG 23, 2023@14:22:20 AUTHOR: JUAQUIN RADER EXP COSIGNER: URGENCY: STATUS: COMPLETED HPI: 73 years old MALE with PMH of listed below presents today for skin lesion. He lives in [facility] living and Jeanine Escoto NP ([facility]) was managing his medications. he was on hospice so most of his medications were discontinued. he reports he got better so he is no longer on hospice. he is not happy with his current care and wants [facility]. he has had the skin lesions for long time. had one lesion on his left arm which was treated by Jeanine Escoto NP now he wants to get that evauated since he is no longer on hospice. Past Medical History: Active problems - Computerized Problem List is the source for the followin. Hypertension (SNOMED CT 59229685) 2. Chronic low back pain 3. Cervical spondylosis with myelopathy - S/P C2-7 decompression with C5-7 fusion in 1999 4. Hypothyroidism 5. Diabetic neuropathy (SNOMED CT 361941097) 6. Sleep apnea 7. Hyperlipidemia (SNOMED CT 67271480) 8. Edema - acute lower extremity bilateral - multifactorial 9. 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 Chest Pain * 12. Anemia - GI work up ordered at [facility] 07/2012 13. Alcohol dependence (SNOMED CT 48582614) 14. Histrionic personality disorder (SNOMED CT 10849896) 15. Bipolar affective disorder, currently depressed, moderate REVIEW OF SYSTEMS: Negative except for issues associated with chronic medical conditions or acute concerns mentioned in this note. Physical Exam: Temp: 98.2 F [36.8 C] (08/23/2023 14:07) Pulse:86 (08/23/2023 14:07) BP: 154/85 (08/23/2023 14:07) Resp: 14 (08/23/2023 14:07) Weight: 240 lb [108.86 kg] (08/23/2023 14:07) Pain: 0 (08/23/2023 14:07) O2 Sat: 95% (08/23/2023 14:07) BMI: 33.5 General: AAOx3, NAD CV: S1, S2, RRR, no m/r/g Lungs: CTAB, no crackles, no wheezing Abd: soft, NT/ND, +BS, no rebound, no guarding skin: has a large ulcerative pink lesion on right side of his neck. size about 1cm. has a pink scaly papule on left ear. size about 5mm in wheelchair Labs: WBC 6.45 (08/02/23) HGB 14.4 (08/02/23) HCT 41.6 (08/02/23) PLT 102 L (08/02/23) Essential Medication List - reviewed with Patient/Caregiver FACILITY ALLERGY/ADR -------- [facility] GABAPENTIN [facility] SULFA DRUGS [facility] NO KNOWN ALLERGIES Active Medications: + +--------+----- ---+--------+--------+ Medication (Local) New Med Old Dose New Dose Discontd + +--------+----- ---+--------+--------+ No local medications found. + +--------+----- ---+--------+--------+ Pending Medications: + +--------+----- ---+--------+--------+ Medication (Local) New Med Old Dose New Dose Discontd + +--------+----- ---+--------+--------+ No local medications found. + +--------+----- ---+--------+--------+ ======= Medications (Past 90 days): ======= + +--------+----- ---+--------+--------+ Medication (Local) New Med Old Dose New Dose Discontd + +--------+----- ---+--------+--------+ No local medications found. + +--------+----- ---+--------+--------+ Non-VA Medications: + +--------+----- ---+--------+--------+ Medication (Local) New Med Old Dose New Dose Discontd + +--------+----- ---+--------+--------+ ACETAMINOPHEN TAB Directions: 1000 MG MOUTH EVERY 6 HOURS NEEDED Status: ACTIVE + +--------+----- ---+--------+--------+ ALBUTEROL 90MCG (CFC-F) 200D ORAL INHL Directions: 2 PUFFS INHALATION EVERY 6 HOURS NEEDED Status: ACTIVE + +--------+----- ---+--------+--------+ ALBUTEROL SO4 0.083% INHL 3ML Directions: 3ML INHALATION EVERY 8 HOURS NEEDED Status: ACTIVE + +--------+----- ---+--------+--------+ DIVALPROEX NA 125MG SPRINKLE CAP Directions: 250MG MOUTH TWICE A DAY Status: ACTIVE + +--------+----- ---+--------+--------+ DOCUSATE NA 50MG/SENNOSIDES 8.6MG TAB Directions: 1 TABLET MOUTH TWICE A DAY NEEDED Status: ACTIVE + +--------+----- ---+--------+--------+ FAMOTIDINE 20MG TAB Directions: 20MG MOUTH EVERY DAY Status: ACTIVE + +--------+----- ---+--------+--------+ HALOPERIDOL 1MG TAB Directions: 1MG MOUTH EVERY 4 HOURS NEEDED Status: ACTIVE + +--------+----- ---+--------+--------+ HYOSCYAMINE SULFATE 0.125MG TAB Directions: 0.125MG MOUTH EVERY 4 HOURS NEEDED Status: ACTIVE + +--------+----- ---+--------+--------+ INSULIN GLARGINE 100UNIT/ML INJ Directions: 40 UNITS UNDER THE SKIN TWICE A DAY Status: ACTIVE + +--------+----- ---+--------+--------+ KETOCONAZOLE 2% CREAM Directions: THIN LAYER TWICE A DAY NEEDED Status: ACTIVE + +--------+----- ---+--------+--------+ KETOCONAZOLE SHAMPOO Directions: NEEDED Status: ACTIVE + +--------+----- ---+--------+--------+ LORAZEPAM 0.5MG TAB Directions: 0.5MG MOUTH EVERY 4 HOURS NEEDED Status: ACTIVE + +--------+----- ---+--------+--------+ MORPHINE TAB,IR Directions: MORPHINE SOLUBE TAB 5MG EVERY 3 HOURS NEEDED Status: ACTIVE + +--------+----- ---+--------+--------+ MORPHINE TAB,IR Directions: MORPHINE SOLUBE TAB 10MG TWICE A DAY Status: ACTIVE + +--------+----- ---+--------+--------+ NITROGLYCERIN 0.4MG SL TAB Directions: 0.4MG UNDER THE TONGUE NEEDED Status: ACTIVE + +--------+----- ---+--------+--------+ ONDANSETRON HCL 4MG TAB Directions: 4MG MOUTH EVERY 8 HOURS NEEDED Status: ACTIVE + +--------+----- ---+--------+--------+ PRAZOSIN HCL 5MG CAP Directions: 10MG MOUTH AT BEDTIME Status: ACTIVE + +--------+----- ---+--------+--------+ SPIRONOLACTONE 25MG TAB Directions: 50MG MOUTH EVERY DAY Status: ACTIVE + +--------+----- ---+--------+--------+ Discontinued Medications (Past 90 days): + +--------+----- ---+--------+--------+ Medication (Local) New Med Old Dose New Dose Discontd + +--------+----- ---+--------+--------+ No local medications found. + +--------+----- ---+--------+--------+ ====== Remote Medications (Past 90 days): ====== + +--------+----- ---+--------+--------+ Medication (Remote) New Med Old Dose New Dose Discontd + +--------+----- ---+--------+--------+ No remote medications found. + +--------+----- ---+--------+--------+ Imaging Procedure Assessment/Plan: 1. skin lesions - has a large ulcerative pink lesion on right side of his neck. size about 1cm. most likely skin cancer - has a pink scaly papule on left ear. size about 5mm. probably cancer. - telederm is not available today. - will place a dermatology consult. if telederm is required, he will need to come another day for that. 2. uncontrolled DM - aspart insulin was d/c when he was admitted to hospice - seems he is only on lantus 40 units once a day and reports BS at bedtime in 400'. never below 200. 3. CHF 4. HTN 5. a fib 6. hypothyroidism 7. COPD 8. bipolar disorder - most medications were discontinued while on hospice he would like us to take over management. - will get labs done today and he will need to have assistant hairstylist living to send his current medication list and finger glucose record. 9. abnormal chest CT - he reports he had chest CT at [facility] several weeks ago and found enlarged lymph node. he did see Jeanine Escoto NP after that but he does not think there was a good plan. will review record. - Vaccinations: IM - Immunizations ADMINISTERED Immunization Series Date Facility Reaction Info COVID-19 (MODERNA), MRNA, LNP-S,* 03/23/2022 [facility] COVID-19 (MODERNA), MRNA, LNP-S,* 07/29/2021 [facility] COVID-19 (MODERNA), MRNA, LNP-S,* 2 11/24/2020 [facility] COVID-19 (MODERNA), MRNA, LNP-S,* 1 10/27/2020 [facility] COVID-19 (PFIZER), MRNA, LNP-S, * 1 07/30/2023 [place] INFLUENZA (HISTORICAL) [facility]* INFLUENZA (HISTORICAL) Renato fabian* <C> INFLUENZA, HIGH DOSE SEASONAL 05/07/2017 [facility], HIGH DOSE SEASONAL 04/13/2016 [facility], HIGH DOSE SEASONAL 05/21/2014 [facility], HIGH DOSE SEASONAL 05/13/2014 [facility], HIGH DOSE SEASONAL 04/21/2013 [facility], HIGH DOSE SEASONAL 05/27/2012 [facility] INFLU[facility], HIGH-DOSE, QUADRIVALE* 05/28/2023 [place]* INFLUENZA, HIGH-DOSE, QUADRIVALE* 05/23/2021 [facility] INFLU[facility], HIGH-DOSE, QUADRIVALE* 05/27/2020 [facility] INFLU[facility], INJECTABLE, QUADRIVAL* 05/18/2016 [facility] IN[facility], INJECTABLE, QUADRIVAL* 05/26/2015 [facility] INFLU[facility], SEASONAL, INJECTABLE [facility]* INFLUENZA, SEASONAL, INJECTABLE [facility]* <C> INFLUENZA, SEASONAL, INJECTABLE 05/07/2012 [facility], SEASONAL, INJECTABLE 08/11/2005 [facility] IN[facility], SEASONAL, INJECTABLE,* 05/01/2017 [place]* INFLUENZA, SEASONAL, INJECTABLE,* 05/09/2011 [facility] INFLU[facility], TRIVALENT, ADJUVANTED 05/13/2019 [facility] INFLU[facility], UNSPECIFIED FORMULATI* 05/13/2018 [facility] INFLU[facility], UNSPECIFIED FORMULATI* 04/18/2013 [place]* INFLUENZA, UNSPECIFIED FORMULATI* [facility]* INFLUENZA, UNSPECIFIED FORMULATI* 05/22/2011 [place]* <C> INFLUENZA, UNSPECIFIED FORMULATI* 05/19/2010 [place]* INFLUENZA, UNSPECIFIED FORMULATI* [place] INFLUENZA, UNSPECIFIED FORMULATI* 05/22/2008 [place]* INFLUENZA, UNSPECIFIED FORMULATI* 05/22/2008 [place]* INFLUENZA, UNSPECIFIED FORMULATI* 06/14/2007 [place]* INFLUENZA, UNSPECIFIED FORMULATI* 07/25/2006 [place]* NOVEL [id number], ALL FOR* 08/25/2009 [place]* <C> PNEUMOCOCCAL CONJUGATE PCV 13 11/23/2014 [facility] PNEUMOCOCCAL CONJUGATE PCV 13 11/20/2014 [place]* <C> PNEUMOCOCCAL POLYSACCHARIDE PPV23 07/19/2017 [facility]* <C> PNEUMOCOCCAL POLYSACCHARIDE PPV23 07/19/2017 [facility] PNEUMOCOCCAL POLYSACCHARIDE PPV23 02/17/2012 [facility] PNEUMOCOCCAL POLYSACCHARIDE PPV23 08/11/2005 [facility] PNEUMOCOCCAL, UNSPECIFIED FORMUL* No Site <C> TD(ADULT) UNSPECIFIED FORMULATION Renato fabian* <C> TDAP 03/21/2008 [facility]* <C> TDAP 03/21/2008 [facility] LIVE 05/10/2013 [facility]* <C> ZOSTER LIVE 05/10/2012 [facility] ZOSTER RECOMBINANT 2 07/30/2023 [place]* <C> ZOSTER RECOMBINANT 1 05/28/2023 [place]* <C> CONTRAINDICATED No data available REFUSED ======= No data available <C> See the Detailed Immunizations Health Summary Component[DIM] for Comments * Value is truncated; see the Detailed Immunizations Health Summary Component [DIM] for complete text [facility]F - Future Appointment: 10/04/2023 14:00 JEANNE NAVAS Clinical Reminders: /es/ Juaquin Rader MD Physician [facility] Signed: 08/23/2023 16:02 JUAQIUN RADER ([facility] Aug 23, 2023 02:14 PM PRIMARY CARE NURSI NG NOTE: LOCAL TITLE: [facility] NURSING PROGRESS NOTE STANDARD TITLE: PRIMARY CARE NURSING NOTE DATE OF NOTE: AUG 23, 2023@14:14 ENTRY DATE: AUG 23, 2023@14:14:25 AUTHOR: MARIBELL MILLER COSIGNER: URGENCY: STATUS: COMPLETED TYPE OF VISIT: Appointment Check In Type of appointment: In-person appointment REASON FOR VISIT: Skin spots ALLERGIES: SULFA DRUGS (December 11, 2005) GABAPENTIN (Feb 01, 2017) VITAL SIGNS: Blood Pressure: 154/85 (08/23/2023 14:07) Pulse: 86 (08/23/2023 14:07) Respiration: 14 (08/23/2023 14:07) Temperature: 98.2 F [36.8 C] (08/23/2023 14:07) Weight: 240 lb [108.86 kg] (08/23/2023 14:07) Height: 71 in [180.3 cm] (09/14/2016 13:50) BMI: 33.5 O2 Sat: 95% (08/23/2023 14:07) Pain: 0 (08/23/2023 14:07) PAIN SCREEN: Patient is not having significant pain that they wish to discuss with their provider today. /karrie/ MARIBELL GARZA [facility] Signed: 08/23/2023 14:16 MARIBELL MILLER ([facility])
== END 2023-09-04 00:20 | disposition home or self-care (01) ==
PROVIDERS: Visit Provider Family Medicine
DX: R53.1 Weakness (principal); Z99.3 Dependence on wheelchair
CPT/HCPCS: A0425; A0428